=== PATIENT | male | born 1965 | race Hispanic/Latino ===

== ENCOUNTER 2020-01-08 21:23 | Inpatient (IN) | payer MEDICAID, SELFPAY ==
[~2020-01-08 21:23] MED LIST: NA CHLORIDE 0.9% 1,000 ML ONE; RSI MEDICATION KIT IV ONE; propofoL 1,000 MG/100 ML VIAL IV ONE
[2020-01-08] MEDS ORDERED: VECURONIUM 10 MG/VIAL IV ONE ×2 (21:24→22:38)
[2020-01-08 22:21] LABS: Absolute Lymphocytes (CBC) 2.9 K/uL (0.7-4.9); Basophils % 0.8 % (0-1.3); Hematocrit 47.2 % (39.6-49.0); Lymphocytes % 36.4 % (15.3-44.8); MPV 9.7 fL (7.6-11.3); RBC Red Blood Cell Count 5.57 M/uL (4.33-5.43)
[2020-01-08 22:37] LABS: BUN Blood Urea Nitrogen 13 mg/dL (7-18); Bicarbonate 21 mmol/L (21-32); Glucose Level 113 mg/dL (74-106); Sodium Level 140 mmol/L (136-145)
[2020-01-08] MEDS ORDERED: NA CHLORIDE 0.9% 1,000 ML ONE (22:46)
[2020-01-08 23:02] LABS: Barbiturates NEGATIVE (NEGATIVE); Benzodiazepines NEGATIVE (NEGATIVE); Cocaine NEGATIVE (NEGATIVE); METHAMPHETAM NEGATIVE (NEGATIVE); Methadone NEGATIVE (NEGATIVE); Opiates NEGATIVE (NEGATIVE); Phencyclidine NEGATIVE (NEGATIVE); THC Cannibis NEGATIVE (NEGATIVE)
[2020-01-08 23:05] LABS: Urine Blood 1+ (NEG); Urine Glucose NEGATIVE (NEG); Urine Protein NEGATIVE (NEG); Urine Specific Gravity 1.005 (1.005-1.030)
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
[2020-01-08] MEDS ORDERED: MIDAZOLAM HCL 2 MG/2 ML INJ ONE (23:39)
[2020-01-08] MEDS ORDERED: MORPHINE 4 MG/ML SYR ONE (23:39)
[2020-01-09] MEDS ORDERED: ONDANSETRON 4 MG/2 ML VIAL IV PRN (00:12)
[2020-01-09] MEDS ORDERED: ACETAMINOPHEN 500 MG TAB PO PRN (00:12)
[2020-01-09] MEDS ORDERED: LORazepam 2 MG/ML VIAL IV PRN ×2 (00:19→01:10)
[2020-01-09] MEDS ORDERED: MORPHINE 2 MG/ML SYR IV PRN (00:19)
[2020-01-09 00:41] LABS: Arterial Blood Carboxyhemoglob 1.2 % (0-1.5); Blood Gas Oxyhemoglobin 94.9 % (94-97); Blood O2 Saturation 96.8 % (92-98.5)
[2020-01-09 00:50] LABS: Arterial Blood Carboxyhemoglob 1.2 % (0-1.5); Blood Gas Oxyhemoglobin 93.7 % (94-97); Blood O2 Saturation 95.6 % (92-98.5)
[2020-01-09] MEDS ORDERED: VECURONIUM 10 MG/VIAL IV ONE (00:52)
[2020-01-09] MEDS: NA CHLORIDE 0.9% 1,000 ML IV SCH ×3 (01:00→20:35)
[2020-01-09] MEDS ORDERED: NA CHLORIDE 0.9% 250 ML IV PRN (01:10)
[2020-01-09] MEDS ORDERED: MIDAZOLAM HCL 2 MG/2 ML INJ IV PRN (01:10)
[2020-01-09] MEDS ORDERED: HALOPERIDOL LACT 5 MG/ML INJ IV PRN (01:10)
[2020-01-09] MEDS ORDERED: ROCURONIUM 50 MG/5 ML VIAL IV ONE (01:14)
[2020-01-09] MEDS: METOPROLOL TARTRATE 5 MG/5 ML INJ IV SCH ×6 (01:51→21:00)
[2020-01-09 01:52] LABS: Protime INR 1.12
[2020-01-09 02:34] LABS: Bilirubin Direct 0.3 mg/dL (0-0.2); Bilirubin Total 0.9 mg/dL (0.2-1.0); Folic Acid, (Folate) 14.7 ng/mL (3.1-17.5); Protein, Total 7.5 g/dL (6.4-8.2)
[2020-01-09] MEDS: ALBUTEROL 2.5 MG/3 ML NEB SOL NEB SCH ×4 (03:30→19:50)
[2020-01-09] MEDS: IPRATROPIUM BROM 0.5MG/2.5ML NEB SCH ×4 (03:30→19:50)
[2020-01-09] MEDS: propofoL 1,000 MG/100 ML VIAL IV PRN ×3 (05:41→22:47)
[2020-01-09] MEDS: FENTANYL CITR 100 MCG/2 ML IV PRN ×3 (05:41→19:10)
[2020-01-09 06:21] LABS: Absolute Lymphocytes (CBC) 1.4 K/uL (0.7-4.9); Basophils % 0.5 % (0-1.3); Hematocrit 41.6 % (39.6-49.0); Lymphocytes % 23.1 % (15.3-44.8); MPV 8.7 fL (7.6-11.3); RBC Red Blood Cell Count 4.92 M/uL (4.33-5.43)
[2020-01-09 06:41] LABS: ALT/SGPT 269 U/L (12-78); AST/SGOT 290 U/L (15-37); Albumin 2.7 g/dL (3.4-5.0); Alkaline Phosphatase 110 U/L (45-117); BUN Blood Urea Nitrogen 13 mg/dL (7-18); Bicarbonate 22 mmol/L (21-32); Bilirubin Direct 0.4 mg/dL (0-0.2); Bilirubin Total 0.6 mg/dL (0.2-1.0); Glucose Level 112 mg/dL (74-106); Phosphorus 3.1 mg/dL (2.5-4.9); Potassium 3.8 mmol/L (3.5-5.1); Protein, Total 6.4 g/dL (6.4-8.2); Sodium Level 142 mmol/L (136-145)
[2020-01-09] MEDS: ASPIRIN EC 81 MG TAB PO SCH (07:17)
[2020-01-09] MEDS ORDERED: CALCIUM GLUC 10% INJ 4.65 MEQ in NA CHLORIDE 0.9% 100 ML IV ONE (08:00)
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
--- NOTE | 2020-01-09 08:48 | RAD REPORT ---
EXAM DESCRIPTION: RAD - Chest Single View - 01/08/2020 10:24 pm CLINICAL HISTORY: ETT placement COMPARISON: CHEST SINGLE VIEW dated 11/10/2010; Chest Single View dated 01/08/2020 TECHNIQUE: AP portable chest image was obtained 01/08/2020 10:24 pm . FINDINGS: Endotracheal tube is in place. Tip is mid aortic arch level 2 cm above the ruthann. NG tube is well positioned in the proximal stomach. Low lung volumes noted. Left upper lobe interstitial and alveolar edema or infiltrate present. There is atelectasis or infiltrate at the left base. Right middle lobe atelectasis and/or infiltrate presen t. Heart and vasculature are normal. No pneumothorax. Small pleural effusions suspected. No acute bon y abnormality seen. No acute aortic findings suspected. IMPRESSION: Endotracheal tube and NG tube in good position. Left upper lobe edema or infiltrate with bilateral lung base infiltrate and/ or atelectasis. No cardiomegaly.
--- NOTE | 2020-01-09 08:51 | RAD REPORT ---
EXAM DESCRIPTION: RAD - Chest Single View - 01/08/2020 11:08 pm CLINICAL HISTORY: POST ETT COMPARISON: Chest Single View dated 01/08/2020; CHEST SINGLE VIEW dated 11/10/2010 TECHNIQUE: AP portable chest image was obtained 01/08/2020 11:08 pm . FINDINGS: ET tube and NG tube remain in good position. There is been improved aeration of the left upper lung field. Bilateral lung base opacification remai ns. Heart size is normal. No enlarging or new pleural effusion. IMPRESSION: ET tube and NG tube in good position. Improved aeration of the left upper lobe.
[2020-01-09] MEDS ORDERED: ENOXAPARIN 40 MG/0.4 ML SQ SCH (09:00)
--- NOTE | 2020-01-09 09:16 | P.CNS ---
Date of Consult: 01/09/20 Reason for Consult: Patient on ventilator Chief Complaint: Alcohol intoxication/combative behavior History of Present Illness: Patient is 54 years of age admitted to the hospital with and alcohol intoxication was found to have altered mental status history of fall inappropriate behavior was admitted here intubated currently on a propofol drip currently there is no history of medical problems cut abnormal liver function tests/is not see any doctors take any medications no other medical history/ patient currently on a ventilator propofol drip due to agitation Allergies No Known Allergies Allergy (Verified 01/09/20 02:19) Home Medications: NK [No Home Meds] 01/09/20 - Family History Father Family History: Reviewed- Non-Contributory Review of Systems is unable to be obtained Physical Examination Temp Pulse Resp BP Pulse Ox 97.7 F 87 18 118/76 100 01/09/20 08:02 01/09/20 09:00 01/09/20 09:00 01/09/20 09:00 01/09/20 09:00 General: Unresponsive Neck: Supple Respiratory: Clear to auscultation bilaterally Cardiovascular: No edema, Regular rate/rhythm Gastrointestinal: Normal bowel sounds, Soft and benign Laboratory Data (last 24 hrs) 01/09/20 00:19: WBC Cancelled, Hgb Cancelled, Hct Cancelled, Plt Count Cancelled 01/08/20 21:38: Sodium 140, Potassium 4.0, BUN 13, Creatinine 0.80, Glucose 113 H 01/08/20 21:38: WBC 8.1, Hgb 15.4, Hct 47.2, Plt Count 110 L 01/08/20 21:36: Creatinine Cancelled 01/08/20 21:36: WBC Cancelled, Hgb Cancelled, Hct Cancelled, Plt Count Cancelled 01/08/20 21:36: Sodium Cancelled, Potassium Cancelled, BUN Cancelled, Creatinine Cancelled, Glucose Cancelled 01/08/20 21:30: Creatinine 0.80 - Problems (1) Respiratory failure Current Visit: Yes Status: Acute Plan: Patient on a ventilator for respiratory failure hypoxic hypercapnic patient's chest x-rays abnormal some haziness on the left side may have aspirated CBC unremarkable pro calcitonin level is negative abnormal LFTs possibly from my alcoholic hepatitis CT scan showed complete atelectasis on the left side which is not apparent on the x-ray may have being due to the endotracheal tube titrate his O2 done sputum cultures ordered there is no evidence of urosepsis code had a pneumonia. Patient on Zosyn this is a mention of surgical sutures is no scars visible probably has aspirated Qualifiers: Chronicity: acute
[2020-01-09 09:20] LABS: Platelet Estimate DECR; Urine White Blood Cell Casts OK
[2020-01-09 09:21] LABS: Anisocytosis 1+; Blood Morphology Comment NOTED (NOT SEEN)
[2020-01-09] MEDS ORDERED: SUCCINYLCHOLINE 20 MG/ML (10 ML) IV ONE (11:10)
[2020-01-09] MEDS ORDERED: ETOMIDATE 20 MG/10 ML VIAL IV ONE (11:10)
[2020-01-09 11:16] LABS: Thyroid Stimulating Hormone 0.704 uIU/mL (0.360-3.740)
[2020-01-09] MEDS ORDERED: FOLIC ACID 1 MG, MULTIVITAMINS INJ 10 ML, THIAMINE HCL 100 MG in NA CHLORIDE 0.9% 1,000 ML IV ONE (13:00)
[2020-01-09 14:27] LABS: Urine Appearance TURBID; Urine Bilirubin NEGATIVE (NEG); Urine Blood 3+ (NEG); Urine Color DK YELLOW; Urine Glucose NEGATIVE (NEG); Urine Protein NEGATIVE (NEG); Urine Specific Gravity 1.025 (1.005-1.030); Urine pH 5.5 (5.0-7.0)
[2020-01-09 14:32] LABS: Urine Microscopic Reflex ORDER UMIC
[2020-01-09 14:43] LABS: Urine Amorphous Sediment 4+ /HPF (NONE SEEN); Urine Bacteria <20 /HPF (NONE SEEN); Urine Culture Reflex Order REFLEXED; Urine RBC 20-50 /HPF (NONE SEEN)
[2020-01-09] MEDS: LORazepam 2 MG/ML VIAL IV PRN ×2 (15:46→20:32)
[2020-01-09] MEDS: PIPER/TAZO/NS 3.375gm 3.375 GM/100 ML BAG IVPB SCH (16:02)
--- NOTE | 2020-01-09 17:01 | PN ---
The patient was seen and examined today. He was seen already and examined by Dr. Rodas earlier this m orning. He seems stable on the vent. Dr. Jara is adjusting the vent setting. We will start the patient on banana bag daily. Otherwise, agree with plan of care as outlined in Dr. Rodas's note. ELYSSA/SNEHA Voice ID: [id number] Report ID: [id number]
[2020-01-09] MEDS ORDERED: ATORVASTATIN 40 MG TAB PO SCH (21:00)
[2020-01-10] MEDS: METOPROLOL TARTRATE 5 MG/5 ML INJ IV SCH ×6 (01:00→21:12)
[2020-01-10] MEDS: PIPER/TAZO/NS 3.375gm 3.375 GM/100 ML BAG IVPB SCH (01:29)
[2020-01-10] MEDS: IPRATROPIUM BROM 0.5MG/2.5ML NEB SCH ×4 (01:30→20:00)
[2020-01-10] MEDS: ALBUTEROL 2.5 MG/3 ML NEB SOL NEB SCH ×4 (01:30→20:00)
[2020-01-10] MEDS: LORazepam 2 MG/ML VIAL IV PRN ×2 (02:29→07:44)
[2020-01-10 05:02] LABS: Absolute Lymphocytes (CBC) 0.8 K/uL (0.7-4.9); Basophils % 0.8 % (0-1.3); Hematocrit 38.3 % (39.6-49.0); Lymphocytes % 17.6 % (15.3-44.8); MPV 9.4 fL (7.6-11.3); RBC Red Blood Cell Count 4.48 M/uL (4.33-5.43)
[2020-01-10 05:22] LABS: ALT/SGPT 230 U/L (12-78); AST/SGOT 271 U/L (15-37); Albumin 2.6 g/dL (3.4-5.0); Alkaline Phosphatase 79 U/L (45-117); BUN Blood Urea Nitrogen 16 mg/dL (7-18); Bicarbonate 25 mmol/L (21-32); Bilirubin Total 1.3 mg/dL (0.2-1.0); Glucose Level 90 mg/dL (74-106); HDL Cholesterol 24 mg/dL (40-60); LDL Cholesterol, Calculated 35 (<130); NT PRO-BNP 25 pg/mL (<125); Phosphorus 1.9 mg/dL (2.5-4.9); Potassium 3.6 mmol/L (3.5-5.1); Protein, Total 6.3 g/dL (6.4-8.2); Sodium Level 141 mmol/L (136-145)
[2020-01-10] MEDS ORDERED: POTASSIUM PHOS IN 0.9 % NACL 15 MMOL/250 ML BAG IV ONE (05:40)
[2020-01-10] MEDS: FENTANYL CITR 100 MCG/2 ML IV PRN (05:56)
[2020-01-10] MEDS: NA CHLORIDE 0.9% 1,000 ML IV SCH ×3 (07:00→21:12)
--- NOTE | 2020-01-10 08:19 | P.PN ---
Subjective Date of Service: 01/10/20 Chief Complaint: Alcohol intoxication/combative behavior Subjective: Improving (Patient is doing well is alert responsive cooperative wants to be extubated hemodynamically stable) Review of Systems is unable to be obtained Physical Examination - Vital Signs Temperature: 99.0 F Blood Pressure: 123/75 Pulse: 88 Respirations: 19 Pulse Ox (%): 99 - Physical Exam General: Alert Respiratory: Clear to auscultation bilaterally Cardiovascular: No edema, Regular rate/rhythm Assessment & Plan - Problems (Diagnosis) (1) Respiratory failure Current Visit: Yes Status: Acute Plan: Patient is doing well is alert responsive and cooperative plan to wean and extubate repeat chest x-ray nose evidence of sepsis he is now thrombocytopenic liver function tests improving cultures negative hepatitis workup is pending Dc Lovenox Dc Zosyn Qualifiers: Chronicity: acute
[2020-01-10] MEDS: ASPIRIN EC 81 MG TAB PO SCH (09:00)
--- NOTE | 2020-01-10 09:18 | RAD REPORT ---
EXAM DESCRIPTION: [place] Single View01/10/2020 9:04 am CLINICAL HISTORY: Respiratory failure COMPARISON: January 08, 2020 FINDINGS: Endotracheal and nasogastric tubes in good position Left pulmonary opacities have mostly resolved. Improvement in a right basilar lung opacity Heart is normal size
[2020-01-10] MEDS ORDERED: VITAL AF 1,000 ML BOT RTH SCH (10:00)
[2020-01-10] MEDS: FOLIC ACID 1 MG, MULTIVITAMINS INJ 10 ML, THIAMINE HCL 100 MG in NA CHLORIDE 0.9% 1,000 ML IV SCH (10:03)
--- NOTE | 2020-01-10 10:17 | P.PN ---
Subjective Date of Service: 01/10/20 Chief Complaint: Alcohol intoxication/combative behavior Subjective: Improving Review of Systems is unable to be obtained Physical Examination - Vital Signs Temperature: 99.0 F Blood Pressure: 123/75 Pulse: 88 Respirations: 19 Pulse Ox (%): 99 - Physical Exam General: Other (Drowsy but arousable ) HEENT: Atraumatic, Normocephalic Neck: Supple Respiratory: Diminished, Crackles/rales Cardiovascular: No edema, Regular rate/rhythm Capillary refill: <2 Seconds Gastrointestinal: Soft and benign Musculoskeletal: No clubbing Integumentary: No rashes Neurological: Other (Drowsy but arousable, moving all limbs) Lymphatics: No axilla or inguinal lymphadenopathy Urinary: Other (No bladder distention) External genitalia: Deferred Rectal: Deferred Assessment & Plan - Problems (Diagnosis) (1) Alcohol intoxication Current Visit: Yes Status: Acute (2) Combative behavior Current Visit: Yes Status: Acute (3) Compromised airway Current Visit: Yes Status: Acute (4) On mechanically assisted ventilation Current Visit: Yes Status: Acute (5) Respiratory failure Current Visit: Yes Status: Acute Plan: Acute hypoxic hypercapnic respiratory failure Status post intubation Was on mechanical ventilator support ICU Extubated on 01/10/2020 Appreciate help from pulmonology monitor closely Acute alcohol intoxication Patient is still drowsy Will educate the patient regarding alcohol intoxication Will offer measures for cessation including AA Delirium tremens Will monitor closely for DT Ativan p.r.n. Cirrhosis liver Thrombocytopenia Elevated liver function panel Will get an ultrasound of the liver Hypocalcemia Hypophosphatemia Will monitor electrolytes and replace accordingly Elevated blood pressure Will give p.r.n. hydralazine Monitor under telemetry Qualifiers: Chronicity: acute Discharge Plan: Home Plan to discharge in: Greater than 2 days Time Spent Managing Pts Care (In Minutes): 43
--- NOTE | 2020-01-10 11:39 | RAD REPORT ---
EXAM DESCRIPTION: CT - Head C Spine Cap Chelsy Zuleta - 01/08/2020 10:55 pm CLINICAL HISTORY: Trauma. COMPARISON: None. TECHNIQUE: 1. CT scan of the brain and cervical spine without IV contrast. 2. CT scan of the chest, abdomen, and pelvis with IV contrast. This exam was performed according to our departmental dose-optimization program, which includes autom ated exposure control, adjustment of the mA and/or kV according to patient size and/or use of iterati ve reconstruction technique. FINDINGS: BRAIN: There is an area of encephalomalacia in the right parietal lobe. No evidence of acute infarction, int racranial hemorrhage, extra-axial fluid collection, or midline shift. No air-fluid levels are seen in the paranasal sinuses to suggest acute sinusitis. No depressed skull fracture. CERVICAL SPINE: No acute cervical fracture or prevertebral soft tissue swelling. There is straightening of the normal cervical lordosis, which may be due to cervical collar, muscle spasm, or patient positioning. There is degenerative disc disease at C4-C5 and C5-C6. The facet joints are intact. No high-grade spinal ca nal stenosis. CHEST: The heart size is normal without pericardial effusion. No thoracic aortic aneurysm or dissection. No mediastinal hematoma is seen. There are surgical sutures in the left lung with complete collapse. No pneumothorax or pleural effusion is seen. The endotracheal tube terminates at the level of the ruthann . ABDOMEN/PELVIS: The liver has a cirrhotic contour. Gallstones are present. The spleen is enlarged measuring 17.5 cm. The enteric tube terminates in the stomach. The abdominal and pelvic solid and hollow viscus organs are grossly unremarkable without evidence of acute findings. No intraperitoneal free fluid or free air is seen. No abdominal aortic aneurysm or di ssection. MUSCULOSKELETAL: No acute fracture of the thoracolumbar spine. The bony pelvis is intact. No rib fractures are seen. T he sternum is also intact. No body wall soft tissue contusion or hematoma. IMPRESSION: 1. No acute intracranial hemorrhage. 2. No acute fracture or subluxation of the cervical spine. 3. No evidence of solid or hollow viscus injury. 4. Complete collapse of the left lung with surgical sutures, which may be chronic postsurgical sequ will. Electronically signed by: Duane Alfaro MD 01/08/2020 10:37 PM [employer]ER Due to temporary technical issues with the PACS/Fluency reporting system, reports are being signed by the in house radiologist as a courtesy to ensure prompt reporting. The interpreting radiologist is f ully responsible for the content of the report.
[2020-01-10] MEDS ORDERED: HYDRALAZINE HCL 20 MG/ML VIAL IV PRN (12:47)
--- NOTE | 2020-01-10 14:48 | RAD REPORT ---
EXAM DESCRIPTION: US - Liver Only - 01/10/2020 2:39 pm CLINICAL HISTORY: Abdominal pain/cirrhosis COMPARISON: None FINDINGS: The liver has a nodular contour. The liver has an increased echotexture. Hepatopetal flow. A lesion is not visualized. Liver is mildly enlarged The spleen measures 18 centimeters IMPRESSION: Mild hepatomegaly Cirrhotic liver Moderate splenomegaly
[2020-01-10] MEDS: chlordiazePOXIDE HCl 25 MG CAP PO SCH ×2 (17:00→17:16)
[2020-01-10] MEDS: carvediloL 6.25 MG TAB PO SCH (21:12)
[2020-01-11] MEDS: METOPROLOL TARTRATE 5 MG/5 ML INJ IV SCH ×4 (01:00→12:43)
[2020-01-11] MEDS: chlordiazePOXIDE HCl 25 MG CAP PO SCH ×2 (01:51→08:31)
[2020-01-11] MEDS: ALBUTEROL 2.5 MG/3 ML NEB SOL NEB SCH ×3 (02:00→14:00)
[2020-01-11] MEDS: IPRATROPIUM BROM 0.5MG/2.5ML NEB SCH ×3 (02:00→14:00)
[2020-01-11 05:39] LABS: ALT/SGPT 182 U/L (12-78); AST/SGOT 210 U/L (15-37); Albumin 2.4 g/dL (3.4-5.0); Alkaline Phosphatase 88 U/L (45-117); BUN Blood Urea Nitrogen 12 mg/dL (7-18); Bicarbonate 21 mmol/L (21-32); Bilirubin Total 1.1 mg/dL (0.2-1.0); Glucose Level 83 mg/dL (74-106); Protein, Total 6.2 g/dL (6.4-8.2); Sodium Level 140 mmol/L (136-145)
[2020-01-11 05:58] VITALS: BMI 28.9
[2020-01-11 06:16] LABS: Absolute Lymphocytes (CBC) 0.6 K/uL (0.7-4.9); Basophils % 0.6 % (0-1.3); Hematocrit 37.2 % (39.6-49.0); Lymphocytes % 21.9 % (15.3-44.8); MPV 9.8 fL (7.6-11.3); RBC Red Blood Cell Count 4.41 M/uL (4.33-5.43)
--- NOTE | 2020-01-11 07:00 | RAD REPORT ---
EXAM DESCRIPTION: RAD - Chest Single View - 01/11/2020 6:47 am CLINICAL HISTORY: Respiratory failure Chest pain. COMPARISON: Chest Single View dated 01/10/2020; Chest Single View dated 01/08/2020; Chest Single View dated 01/08/2020; CHEST SINGLE VIEW dated 11/10/2010; Liver Only dated 01/10/2020 FINDINGS: Portable technique limits examination quality. Since prior study, the patient has been extubated. Enteric tube has been removed. Lung aeration is st able with mild interstitial opacities persist. The heart is normal in size. No displaced fractures.
[2020-01-11] MEDS: NA CHLORIDE 0.9% 1,000 ML IV SCH ×2 (07:46→12:43)
[2020-01-11 08:26] LABS: Anisocytosis 1+; Blood Morphology Comment NOTED (NOT SEEN); Platelet Estimate DECR; Urine White Blood Cell Casts OK
[2020-01-11] MEDS: ASPIRIN EC 81 MG TAB PO SCH (08:30)
[2020-01-11] MEDS: carvediloL 6.25 MG TAB PO SCH (08:31)
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
[2020-01-11] MEDS: FOLIC ACID 1 MG, MULTIVITAMINS INJ 10 ML, THIAMINE HCL 100 MG in NA CHLORIDE 0.9% 1,000 ML IV SCH (10:02)
[2020-01-11 12:02] VITALS: O2SAT 74
[2020-01-11 17:05] VITALS: BP 144/81
[2020-01-11 17:06] VITALS: TEMP 98
[2020-01-12 05:20] LABS: HBsAG Nonreactive (Nonreactive)
[2020-01-12 17:10] LABS: Hep C Virus RNA (PCR)log 5.64 log IU/mL
== END 2020-01-11 16:45 | disposition home or self-care (01) | DRG 896 ==
LOC: ER 21:23 → 3RD-ICU 01-09 00:55
PROVIDERS: ADMIT Hospitalist; ATTEND Internal Medicine
PROC: 0BH17EZ Insertion of Endotracheal Airway into Trachea, Via Natural or Artificial Opening (ICD-10-PCS; principal; 2020-01-09)
PROC: 5A1945Z Respiratory Ventilation, 24-96 Consecutive Hours (ICD-10-PCS; 2020-01-09)
DX: F10.129 Alcohol abuse with intoxication, unspecified (principal); J69.0 Pneumonitis due to inhalation of food and vomit; J96.01 Acute respiratory failure with hypoxia; J96.02 Acute respiratory failure with hypercapnia; E87.2 Acidosis; R45.6 Violent behavior; Y90.8 Blood alcohol level of 240 mg/100 ml or more; F91.8 Other conduct disorders; K70.30 Alcoholic cirrhosis of liver without ascites; D69.6 Thrombocytopenia, unspecified; E83.51 Hypocalcemia; E83.39 Other disorders of phosphorus metabolism
CPT/HCPCS: 31500; 36415; 51702; 70450; 71045; 71250; 72125; 76705; 80048; 80053; 80061; 80074; 80076; 80307; 80320; 81003; 81015; 82140; 82607; 82746; 82805; 83540; 83605; 83690; 83735; 83880; 84100; 84145; 84443; 85025; 85610; 85730; 86850; 86900; 86901; 87040; 87070; 87086; 87088; 87205; 87522; 94002; 94003; 94640; 97112; 97116; 97161; 99291; 99292; J0330; J0610; J1650; J2250; J2543; J2704; J3010; J3411; J7030; Q9967

== ENCOUNTER 2020-01-22 00:27 | Emergency (ER) | payer SELFPAY ==
[2020-01-22 01:12] LABS: Absolute Lymphocytes (CBC) 1.6 K/uL (0.7-4.9); Basophils % 1.1 % (0-1.3); Hematocrit 45.8 % (39.6-49.0); Lymphocytes % 23.1 % (15.3-44.8); MPV 9.6 fL (7.6-11.3); RBC Red Blood Cell Count 5.41 M/uL (4.33-5.43)
[2020-01-22 01:13] LABS: Protime INR 1.11
[2020-01-22 01:45] LABS: Blood Morphology Comment NOT SEEN (NOT SEEN); Platelet Estimate DECR; Urine White Blood Cell Casts OK
[2020-01-22 01:47] LABS: AST/SGOT 291 U/L (15-37); Albumin 3.3 g/dL (3.4-5.0); Alkaline Phosphatase 127 U/L (45-117); BUN Blood Urea Nitrogen 9 mg/dL (7-18); Bicarbonate 24 mmol/L (21-32); Bilirubin Direct 0.4 mg/dL (0-0.2); Bilirubin Total 0.7 mg/dL (0.2-1.0); Glucose Level 110 mg/dL (74-106); Potassium 3.8 mmol/L (3.5-5.1); Protein, Total 8.4 g/dL (6.4-8.2); Sodium Level 142 mmol/L (136-145)
[2020-01-22 01:50] LABS: ALT/SGPT 321 U/L (12-78)
--- NOTE | 2020-01-22 03:09 | ER ---
Nurse's Notes [facility] Name: Aureliano Sheikh Jr Age: 54 yrs Sex: Male : 1965 Arrival Date: 01/22/2020 Time: 00:31 Bed 18 Private MD: Diagnosis: Alcohol abuse with intoxication Presentation: 01:00 Chief complaint: EMS states: PATIENT IS KNOWN ETOH USER. DRINK ALCOHOL TODAY AND rv STARTED HAVING SOME SHAKING AND BLOOD PRESSURE IS ELEVATED. FAMILY CALLED EMS. DENIES ANY OTHER SYMPTOMS. Risk Assessment: Do you want to hurt yourself or someone else? Patient reports no desire to harm self or others. 01:00 Method Of Arrival: EMS: [facility] rv 01:00 Coronavirus screen: The patient has NOT traveled to [place] in the past 14 days. Proceed rv with normal triage procedures. The patient has NOT had contact with known and/or suspected case of Coronavirus. Proceed with normal triage procedures. Ebola Screen: No symptoms or risks identified at this time. Initial Sepsis Screen: Does the patient meet any 2 criteria? No. Patient's initial sepsis screen is negative. Does the patient have a suspected source of infection? No. Patient's initial sepsis screen is negative. 01:00 Acuity: LORETTA 3 rv 01:00 Onset of symptoms was January 22, 2020 at 00:00. rv 01:00 Note patient drank beer approximately 1 case. started drinking 6 in the morning as rr5 stated by the patient. as per EMS patient becoming combative on the way here. Historical: - Allergies: 02:06 No Known Allergies; rv - Home Meds: 02:06 Unable to obtain [Active]; rv - PMHx: 02:06 Unable to obtain; rv - PSHx: 02:06 Unable to obtain; rv - Immunization history:: Adult Immunizations unknown. - Social history:: Smoking status: Patient reports the use of cigarette tobacco products, smokes one pack cigarettes per day. Patient uses alcohol, on a daily basis. Screenin:03 Abuse screen: Denies threats or abuse. Denies injuries from another. Nutritional rv screening: No deficits noted. Tuberculosis screening: No symptoms or risk factors identified. Fall Risk None identified. Assessment: 01:00 General: Appears in no apparent distress. Behavior is uncooperative, Smells of alcohol. rv 01:00 Pain: Denies pain. Neuro: Level of Consciousness is awake, alert, Oriented to person, rv place, time, situation. Cardiovascular: Patient's skin is warm and dry. Respiratory: Airway is patent Breath sounds are clear bilaterally. Musculoskeletal: left hand is shaking intermittently. 02:10 Reassessment: Patient appears in no apparent distress at this time. Patient and/or rv family updated on plan of care and expected duration. Pain level reassessed. Patient is alert, oriented x 3, equal unlabored respirations, skin warm/dry/pink. PATIENT IS ASLEEP. NO SIGNS OF SHAKINESS. STABLE VITAL SIGNS. Respiratory: Airway is patent Breath sounds are clear bilaterally. 03:17 Reassessment: Patient appears in no apparent distress at this time. Patient and/or rv family updated on plan of care and expected duration. Pain level reassessed. Patient is alert, oriented x 3, equal unlabored respirations, skin warm/dry/pink. patient is more coherent now and cooperative. family was able to reach thru phone call for transportation. Patient denies pain at this time. Patient states feeling better. Patient states symptoms have improved. 03:53 Reassessment: patient decided to wait for his family in the waiting area. discharged rv alert and ambulatory. Vital Signs: 01:00 BP 121 / 77; Pulse 82; Resp 17; Temp 98; Pulse Ox 97% on R/A; Weight 68.04 kg; Pain rv 0/10; 01:00 BP 98 / 61; Pulse 82; Resp 16; Pulse Ox 96% on R/A; rv 02:09 BP 100 / 69; Pulse 66; Resp 17; Pulse Ox 96% on R/A; rv 03:00 BP 110 / 66; Pulse 68; Resp 16; Temp 98; Pulse Ox 99% on R/A; rv ED Course: 00:31 Patient arrived in ED. rr5 00:40 Adrien Quezada MD is Attending Physician. tw4 01:00 Patient has correct armband on for positive identification. equipment monitor phototypesetting on. Pulse rv ox on. NIBP on. 01:00 Inserted saline lock: 18 gauge in right forearm, using aseptic technique. Blood rv collected. 01:00 Initial lab(s) drawn, by me, sent to lab. rv 01:50 Notified ED physician of a critical lab result(s). ALT Dr Quezada notified. bb 02:01 Iggy Perez, RN is Primary Nurse. rv 02:05 Triage completed. rv 02:12 Patient placed Patient notified of wait time. rv 03:20 No provider procedures requiring assistance completed. IV discontinued, intact, rv bleeding controlled, No redness/swelling at site. Pressure dressing applied. Administered Medications: No medications were administered Outcome: 03:08 Discharge ordered by . tw4 03:20 Condition: good rv 03:20 Discharge instructions given to patient, Instructed on discharge instructions, follow up and referral plans. Demonstrated understanding of instructions, follow-up care. 03:54 Discharged to home ambulatory. rv 03:54 Patient left the ED. rv Signatures: Claudia Tapia RN RN bb Adrien Quezada MD MD tw4 Iggy Perez, ETIENNE RN rv Aman Dasilva RN RN rr5 Corrections: (The following items were deleted from the chart) 03:54 03:53 Reassessment: patient decided to wait for his family in the waiting area. rv rv
--- NOTE | 2020-01-22 03:09 | EDPHYS ---
Physician Documentation [facility] Name: Aureliano Sheikh Jr Age: 54 yrs Sex: Male : 1965 Arrival Date: 01/22/2020 Time: 00:31 Bed 18 Private MD: ED Physician Adrien Quezada HPI: 06:05 This 54 yrs old Male presents to ER via EMS with complaints of High Blood tw4 Pressure. 06:05 The patient has elevated blood pressure and discovered this at home. Onset: The tw4 symptoms/episode began/occurred today. Modifying factors: The symptoms are aggravated by. Associated signs and symptoms: The patient has no apparent associated signs or symptoms. The patient has not experienced similar symptoms in the past. Historical: - Allergies: 02:06 No Known Allergies; rv - Home Meds: 02:06 Unable to obtain [Active]; rv - PMHx: 02:06 Unable to obtain; rv - PSHx: 02:06 Unable to obtain; rv - Immunization history:: Adult Immunizations unknown. - Social history:: Smoking status: Patient reports the use of cigarette tobacco products, smokes one pack cigarettes per day. Patient uses alcohol, on a daily basis. ROS: 06:05 Constitutional: Negative for fever, chills, and weight loss, Eyes: Negative for injury, tw4 pain, redness, and discharge, Cardiovascular: Negative for chest pain, palpitations, and edema, Respiratory: Negative for shortness of breath, cough, wheezing, and pleuritic chest pain, Abdomen/GI: Negative for abdominal pain, nausea, vomiting, diarrhea, and constipation, Back: Negative for injury and pain, MS/Extremity: Negative for injury and deformity, Skin: Negative for injury, rash, and discoloration, Neuro: Negative for headache, weakness, numbness, tingling, and seizure. Exam: 06:05 Constitutional: This is a well developed, well nourished patient who is awake, alert, tw4 and in no acute distress. Head/Face: Normocephalic, atraumatic. Chest/axilla: Normal chest wall appearance and motion. Nontender with no deformity. No lesions are appreciated. Cardiovascular: Regular rate and rhythm with a normal S1 and S2. No gallops, murmurs, or rubs. Normal PMI, no JVD. No pulse deficits. Respiratory: Lungs have equal breath sounds bilaterally, clear to auscultation and percussion. No rales, rhonchi or wheezes noted. No increased work of breathing, no retractions or nasal flaring. Abdomen/GI: Soft, non-tender, with normal bowel sounds. No distension or tympany. No guarding or rebound. No evidence of tenderness throughout. Back: No spinal tenderness. No costovertebral tenderness. Full range of motion. MS/ Extremity: Pulses equal, no cyanosis. Neurovascular intact. Full, normal range of motion. Neuro: Awake and alert, GCS 15, oriented to person, place, time, and situation. Cranial nerves II-XII grossly intact. Motor strength 5/5 in all extremities. Sensory grossly intact. Cerebellar exam normal. Normal gait. Vital Signs: 01:00 BP 121 / 77; Pulse 82; Resp 17; Temp 98; Pulse Ox 97% on R/A; Weight 68.04 kg; Pain rv 0/10; 01:00 BP 98 / 61; Pulse 82; Resp 16; Pulse Ox 96% on R/A; rv 02:09 BP 100 / 69; Pulse 66; Resp 17; Pulse Ox 96% on R/A; rv 03:00 BP 110 / 66; Pulse 68; Resp 16; Temp 98; Pulse Ox 99% on R/A; rv MDM: 00:40 Patient medically screened. tw4 06:05 Differential diagnosis: hypertensive crisis, Malignant HTN. Data reviewed: vital signs, tw4 nurses notes. Data interpreted: Pulse oximetry: Interpretation: normal. Counseling: I had a detailed discussion with the patient and/or guardian regarding: the historical points, exam findings, and any diagnostic results supporting the discharge/admit diagnosis. Counseling: I had a detailed discussion with the patient and/or guardian regarding: the presence of at least one elevated blood pressure reading (>120/80) during this emergency department visit. Special discussion: I discussed with the patient/guardian in detail that at this point there is no indication for admission to the hospital. It is understood, however, that if the symptoms persist or worsen the patient needs to return immediately for re-evaluation. 00:41 Order name: Basic Metabolic Panel tw4 00:41 Order name: CBC with Diff tw4 00:41 Order name: ETOH Level; Complete Time: 01:40 tw4 00:41 Order name: Hepatic Function tw4 00:41 Order name: PT-INR tw4 00:41 Order name: Ptt, Activated tw4 00:41 Order name: Salicylate tw4 00:41 Order name: IV Saline Lock; Complete Time: 00:56 tw4 00:41 Order name: Labs collected and sent; Complete Time: 00:56 tw4 00:41 Order name: Basic Metabolic Panel EDMS 01:45 Order name: CBC Smear Scan EDMS Administered Medications: No medications were administered Disposition: 01/22/20 03:08 Discharged to Home. Impression: Alcohol abuse with intoxication. - Condition is Stable. - Discharge Instructions: Alcohol Intoxication, Alcohol Abuse and Nutrition. - Medication Reconciliation Form, Thank You Letter, Antibiotic Education, Prescription Opioid Use form. - Follow up: Private Physician; When: Upon discharge from the Emergency Department; Reason: If symptoms return, Recheck today's complaints, Continuance of care. - Problem is new. - Symptoms have improved. Signatures: Dispatcher [employer] EDMS Adrien Quezada MD MD tw4 Iggy Perez RN RN rv Corrections: (The following items were deleted from the chart) 03:54 03:08 01/22/2020 03:08 Discharged to Home. Impression: Alcohol abuse with intoxication. rv Condition is Stable. Forms are Medication Reconciliation Form, Thank You Letter, Antibiotic Education, Prescription Opioid Use. Follow up: Private Physician; When: Upon discharge from the Emergency Department; Reason: If symptoms return, Recheck today's complaints, Continuance of care. Problem is new. Symptoms have improved. tw4
[2020-01-22 04:06] VITALS: TEMP 98
[2020-01-22 04:08] VITALS: BP 110/66; O2SAT 99
== END 2020-01-22 03:54 | disposition home or self-care (01) ==
LOC: ER 00:27
DX: F10.129 Alcohol abuse with intoxication, unspecified (principal); F17.210 Nicotine dependence, cigarettes, uncomplicated
CPT/HCPCS: 36415; 80048; 80076; 80320; 80329; 85025; 85610; 85730; 99284

== ENCOUNTER 2020-07-04 17:03 | Emergency (ER) | payer SELFPAY ==
[2020-07-04 18:03] LABS: Protime INR 1.36
[2020-07-04 18:05] LABS: Absolute Lymphocytes (CBC) 1.1 K/uL (0.7-4.9); Basophils % 0.5 % (0-1.3); Hematocrit 40.6 % (39.6-49.0); Lymphocytes % 13.5 % (15.3-44.8); MPV 9.9 fL (7.6-11.3); RBC Red Blood Cell Count 4.65 M/uL (4.33-5.43)
--- NOTE | 2020-07-04 18:07 | RAD REPORT ---
EXAM DESCRIPTION: CT - Head Brain Wo Cont - 07/04/2020 5:50 pm CLINICAL HISTORY: MENTAL STATUS CHANGE Headache, drowsiness COMPARISON: Head C Spine Cap Wo Con dated 01/08/2020 TECHNIQUE: All CT scans are performed using dose optimization technique as appropriate and may inclu de automated exposure control or mA/KV adjustment according to patient size. FINDINGS: Large, acute bifrontal intracranial hematomas are present, on the right measuring 4.7 x 1. 9 cm and on the left measuring 4.5 x 2.6 cm. There is a small amount of subdural blood is well along the left frontal convexity. The mild subarachnoid blood is seen along the left temporal region as wel l as the right posterior frontal region.No hydrocephalus. 5 mm [id number] midline shift. The paranasal sinuses and mastoids are clear. Several kaylin holes are present bilaterally. IMPRESSION: Bilateral large acute bifrontal intracranial hematomas as detailed. Additional areas of subdural and subarachnoid blood bilaterally as described above. Findings were discussed with Dr. Webb in emergency room 6 p.m. 07/04/2020 by telephone.
--- NOTE | 2020-07-04 18:11 | EDPHYS ---
Physician Documentation [facility] Name: Aureliano Sheikh Jr Age: 55 yrs Sex: Male : 1965 Arrival Date: 07/04/2020 Time: 17:[address] Private MD: ED Physician Scott Webb HPI: 07/04 17:20 This 55 yrs old Male presents to ER via EMS with complaints of Altered Mental cp Status. 17:20 The patient presents with confusion. cp 17:20 Onset: The symptoms/episode began/occurred 2 day(s) ago. Possible causes: unknown. cp Associated signs and symptoms: Pertinent positives: slurred speech, Pertinent negatives: abdominal pain, chest pain, combativeness, headache, seizure. Current symptoms: In the emergency department the patient's symptoms are unchanged from the initial presentation, despite EMS interventions. Patient's baseline: Neuro: alert and fully oriented, Motor: no deficits, Ambulation: walks without assistance, Speech: normal. EMS reports family found patient on ground 2 days ago. Historical: - Allergies: 17:17 No Known Allergies; jd3 - Home Meds: 17:17 None [Active]; jd3 - PMHx: 17:17 None; jd3 - PSHx: 17:17 brain sx at a young age; jd3 - Immunization history:: Adult Immunizations unknown. - Social history:: Smoking status: Patient reports the use of cigarette tobacco products, denies chronic smoking, but will smoke occasionally. ROS: 17:21 Constitutional: Negative for fever. cp 17:21 Cardiovascular: Negative for chest pain. cp 17:21 Respiratory: Negative for cough, shortness of breath. 17:21 Abdomen/GI: Negative for abdominal pain, vomiting, diarrhea, constipation. 17:21 Back: Negative for pain at rest, pain with movement. 17:21 MS/extremity: Negative for injury or acute deformity. 17:21 Neuro: Positive for altered mental status, Negative for headache. 17:21 All other systems are negative. Exam: 17:25 Constitutional: The patient appears in no acute distress, alert, awake, comfortable, cp non-diaphoretic, non-toxic, well developed, well nourished. 17:25 Head/Face: Normocephalic, atraumatic. cp 17:25 Eyes: Periorbital structures: appear normal, Pupils: equal, round, and reactive to light and accomodation, Extraocular movements: intact throughout, Conjunctiva: normal, no exudate, no injection, Lids and lashes: appear normal, bilaterally. 17:25 ENT: External ear(s): are unremarkable, Nose: is normal, Mouth: Lips: moist, Oral mucosa: pink and intact, moist, Posterior pharynx: Airway: no evidence of obstruction, patent. 17:25 Neck: C-spine: vertebral tenderness, is not appreciated, crepitus, is not appreciated, ROM/movement: is normal, is supple, without pain, no range of motions limitations. 17:25 Chest/axilla: Inspection: normal, Palpation: is normal, no crepitus, no tenderness. 17:25 Cardiovascular: Rate: normal, Rhythm: regular. 17:25 Respiratory: the patient does not display signs of respiratory distress, Respirations: normal, no use of accessory muscles, no retractions, labored breathing, is not present, Breath sounds: are clear throughout, no decreased breath sounds. 17:25 Abdomen/GI: Inspection: abdomen appears normal, Palpation: abdomen is soft and non-tender, in all quadrants. 17:25 Back: vertebral tenderness, is not appreciated. 17:25 Skin: cellulitis, is not appreciated, no rash present. 17:25 Neuro: Orientation: to person, time, situation, Mentation: able to follow commands, slow to respond, Cerebellar function: Romberg testing is negative, normal finger to nose testing, Motor: moves all fours, strength is normal, Sensation: no obvious gross deficits. 17:42 ECG was reviewed by the Attending Physician. cp Vital Signs: 17:17 BP 136 / 83; Pulse 78; Resp 17 S; Temp 98.4(A); Pulse Ox 97% on R/A; Weight 77.11 kg jd3 (R); Height 5 ft. 4 in. (162.56 cm) (R); Pain 0/10; 18:16 BP 142 / 89; Pulse 70; Resp 18 S; Pulse Ox 99% on R/A; jd3 18:25 BP 142 / 89; Pulse 74; Resp 20 S; Pulse Ox 98% on R/A; jd3 17:17 Body Mass Index 29.18 (77.11 kg, 162.56 cm) jd3 NIH Stroke Scale Scores: 17:19 NIHSS Score: 1 jd3 17:22 NIHSS Score: 1 cp Carl Coma Score: 17:25 Eye Response: spontaneous(4). Verbal Response: oriented(5). Motor Response: obeys cp commands(6). Total: 15. MDM: 17:17 Patient medically screened. cp 17:35 Differential Diagnosis: CVA, alcohol intoxication, intracranial bleed, seizure, TIA. cp 18:05 Data reviewed: vital signs, nurses notes, radiologic studies, CT scan, I have discussed cp the patient's presentation/case with the attending Emergency Department Physician; and as a result, I will transfer patient. 18:05 Counseling: I had a detailed discussion with the patient and/or guardian regarding: the cp historical points, exam findings, and any diagnostic results supporting the discharge/admit diagnosis, radiology results, the need to transfer to another facility, for higher level of care. 07/04 17:15 Order name: Basic Metabolic Panel 07/04 17:15 Order name: CBC with Diff 07/04 17:15 Order name: LFT's 07/04 17:15 Order name: Magnesium cp 07/04 17:15 Order name: NT PRO-BNP 07/04 17:15 Order name: PT-INR 07/04 17:15 Order name: Troponin (emerg Dept Use Only) 07/04 17:15 Order name: AMMONIA 07/04 17:15 Order name: ETOH Level 07/04 17:15 Order name: CK 07/04 18:12 Order name: CBC with Automated Diff; Complete Time: 16:53 EDMS 07/05 16:53 Interpretation: Normal except: HGB 13.5; PLT 80; RDW 16.0; KRYSTEN% 77.7; LYM% 13.5. 07/04 18:13 Order name: Protime (+INR); Complete Time: 19:06 EDMS 07/05 16:54 Interpretation: Abnormal: PT 16.0. 07/04 17:15 Order name: XRAY Chest (1 view) 07/04 17:15 Order name: EKG; Complete Time: 17:33 cp 07/04 17:15 Order name: Cardiac monitoring; Complete Time: 17:21 cp 07/04 17:15 Order name: EKG - Nurse/Tech; Complete Time: 17:28 07/04 17:15 Order name: IV Saline Lock; Complete Time: 17:28 07/04 17:15 Order name: Labs collected and sent; Complete Time: 17:41 07/04 17:15 Order name: O2 Per Protocol; Complete Time: 17:21 07/04 17:15 Order name: O2 Sat Monitoring; Complete Time: 17:21 07/04 17:15 Order name: CT Head Brain wo Cont cp 07/04 18:00 Order name: CT C Spine cp 07/04 18:08 Order name: CT; Complete Time: 19:06 EDMS 07/04 18:13 Order name: CT; Complete Time: 19:06 EDMS 07/04 18:15 Order name: Ammonia; Complete Time: 19:06 EDMS 07/05 16:55 Interpretation: Reviewed. 07/04 18:26 Order name: Alcohol Serum/Plasma; Complete Time: 19:06 EDMS 12 16:55 Interpretation: Reviewed. cp EC:42 Rate is 77 beats/min. Rhythm is regular. ID interval is normal. QRS interval is normal. cp QT interval is normal. T waves are Inverted in lead aVR. Interpreted by me. Reviewed by me. Administered Medications: 18:15 Drug: Keppra 1500 mg Route: IV; Rate: calculated rate; Site: left antecubital; jd3 18:34 Follow up: Response: No adverse reaction; IV Status: Completed infusion; IV Intake: jd3 100ml Disposition: 18:15 Chart complete. cp 19:03 Co-signature as Attending Physician, Scott Webb MD I agree with the assessment and ps1 plan of care. Disposition: 07/04/20 18:10 Transfer ordered to [facility]. Diagnosis is Intracranial injury - hemorrhage. - Reason for transfer: Higher level of care. - Accepting physician is DR Infante. - Condition is Stable. - Problem is new. - Symptoms are unchanged. NIH Stroke Scale - NIH Stroke Score Date: 07/04/2020 Time: 17:19 Total Score = 1 1a. Level of Consciousness (LOC) - 0(Alert) 1b. Level of Consciousness (LOC) (Year \T\ Age) - 0(Both) 1c. LOC Commands (Open \T\ Closes Eyes/Plaster Foreman) - 0(Both) 2. Best Gaze (Lateral Gaze Paresis) - 0(Normal) 3. Visual Field Loss - 0(No visual loss) 4. Facial Palsy - 0(Normal) 5a. Left Arm: Motor (10-second hold) - 0(No drift) 5b. Right Arm: Motor (10-second hold) - 0(No drift) 6a. Left Leg: Motor (5-second hold - always test supine) - 0(No drift) 6b. Right Leg: Motor (5-second hold - always test supine) - 0(No drift) 7. Limb Ataxia (finger/nose \T\ heel/nuñez - test with eyes open) - 0(Absent) 8. Sensory Loss (pinprick arms/legs/face) - 0(Normal) 9. Best Language: Aphasia (description/naming/reading) - 0(No aphasia) 10. Dysarthria (speech clarity - read or repeat words) - 1(Mild to Moderate) 11. Extinction and Inattention (visual/tactile/auditory/spatial/personal) - 0(No abnormality) Initials: jd3 NIH Stroke Scale - NIH Stroke Score Date: 07/04/2020 Time: 17:22 Total Score = 1 1a. Level of Consciousness (LOC) - 0(Alert) 1b. Level of Consciousness (LOC) (Year \T\ Age) - 0(Both) 1c. LOC Commands (Open \T\ Closes Eyes/Plaster Foreman) - 0(Both) 2. Best Gaze (Lateral Gaze Paresis) - 0(Normal) 3. Visual Field Loss - 0(No visual loss) 4. Facial Palsy - 0(Normal) 5a. Left Arm: Motor (10-second hold) - 0(No drift) 5b. Right Arm: Motor (10-second hold) - 0(No drift) 6a. Left Leg: Motor (5-second hold - always test supine) - 0(No drift) 6b. Right Leg: Motor (5-second hold - always test supine) - 0(No drift) 7. Limb Ataxia (finger/nose \T\ heel/nuñez - test with eyes open) - 0(Absent) 8. Sensory Loss (pinprick arms/legs/face) - 0(Normal) 9. Best Language: Aphasia (description/naming/reading) - 0(No aphasia) 10. Dysarthria (speech clarity - read or repeat words) - 1(Mild to Moderate) 11. Extinction and Inattention (visual/tactile/auditory/spatial/personal) - 0(No abnormality) Initials: cp Signatures: Dispatcher [employer] EDMS Neftaly Quintana PA PA cp Davies, Jonathon, RN RN jd3 Scott Webb MD MD ps1 Corrections: (The following items were deleted from the chart) 18:28 18:10 07/04/2020 18:10 Transfer ordered to [facility]. Diagnosis cp is Intracranial injury - hemorrhage. Reason for transfer: Higher level of care. Accepting physician is Doctor. Condition is Stable. Problem is new. Symptoms are unchanged. cp 18:50 18:28 07/04/2020 18:10 Transfer ordered to [facility]. Diagnosis jd3 is Intracranial injury - hemorrhage. Reason for transfer: Higher level of care. Accepting physician is DR Infante. Condition is Stable. Problem is new. Symptoms are unchanged. cp
--- NOTE | 2020-07-04 18:11 | ER ---
Nurse's Notes [facility] Name: Aureliano Sheikh Jr Age: 55 yrs Sex: Male : 1965 Arrival Date: 07/04/2020 Time: 17:[address] Private MD: Diagnosis: Intracranial injury-hemorrhage Presentation: 07/04 17:13 Chief complaint: EMS states: "Family is reporting that the pt has been acting strange jd3 for the last couple of days. 2 days ago they found him laying in the yard, they were unsure if he fell or what. they did report a fall about 2 days ago, but no injury. he is A\\T\\O X 4, but he is acting different then what family says he normally is. he is acting like he has been drinking. pt denies alcohol.". Coronavirus screen: At this time, the client does not indicate any symptoms associated with coronavirus-19. Ebola Screen: Patient negative for fever greater than or equal to 101.5 degrees Fahrenheit, and additional compatible Ebola Virus Disease symptoms. Initial Sepsis Screen: Does the patient meet any 2 criteria? No. Patient's initial sepsis screen is negative. Does the patient have a suspected source of infection? No. Patient's initial sepsis screen is negative. Risk Assessment: Do you want to hurt yourself or someone else? Patient reports no desire to harm self or others. Onset of symptoms was July 02, 2020. 17:13 Method Of Arrival: EMS: [facility] 17:13 Acuity: LORETTA 2 jd3 17:18 Care prior to arrival: IV initiated. 18 GA, in the left antecubital area. jd3 Historical: - Allergies: 17:17 No Known Allergies; jd3 - Home Meds: 17:17 None [Active]; jd3 - PMHx: 17:17 None; jd3 - PSHx: 17:17 brain sx at a young age; jd3 - Immunization history:: Adult Immunizations unknown. - Social history:: Smoking status: Patient reports the use of cigarette tobacco products, denies chronic smoking, but will smoke occasionally. Screenin:20 Abuse screen: Denies threats or abuse. Nutritional screening: No deficits noted. jd3 Tuberculosis screening: No symptoms or risk factors identified. Fall Risk Ambulatory Aid- None/Bed Rest/Nurse Assist (0 pts). Gait- Normal/Bed Rest/Wheelchair (0 pts) Mental Status- Oriented to own ability (0 pts). Total Ch Fall Scale indicates No Risk (0-24 pts). Assessment: 17:19 General: Appears in no apparent distress. comfortable, Behavior is calm, cooperative, jd3 appropriate for age. Pain: Denies pain. Neuro: Level of Consciousness is awake, alert, obeys commands, Oriented to person, place, time, Automobile Painter are equal bilaterally Moves all extremities. Full function Speech is slurred, Facial symmetry appears normal, Intact. Cardiovascular: Denies chest pain, Capillary refill < 3 seconds Patient's skin is warm and dry. Rhythm is regular. Respiratory: Airway is patent Respiratory effort is even, unlabored, Respiratory pattern is regular, symmetrical, Denies cough, shortness of breath. GI: No signs and/or symptoms were reported involving the gastrointestinal system. Patient currently denies diarrhea, nausea, vomiting. : No signs and/or symptoms were reported regarding the genitourinary system. EENT: No signs and/or symptoms were reported regarding the EENT system. Derm: Skin is intact, Skin is dry, Skin is normal, Skin temperature is warm. Musculoskeletal: Circulation, motion, and sensation intact. Range of motion: intact in all extremities. 18:15 Reassessment: Report given to [facility]. ETA 22 minutes. ss 18:25 Reassessment: No changes from previously documented assessment. Patient and/or family jd3 updated on plan of care and expected duration. Pain level reassessed. report given to Yamilet Ramos RN at [facility] in [place]. Patient denies pain at this time. 18:48 Reassessment: No changes from previously documented assessment. Patient and/or family jd3 updated on plan of care and expected duration. Pain level reassessed. report given to February with [facility] Patient denies pain at this time. Neuro: Level of Consciousness is awake, alert, obeys commands, Oriented to person, place, time. Cardiovascular: Denies chest pain, Capillary refill < 3 seconds Patient's skin is warm and dry. Respiratory: Airway is patent Respiratory effort is even, unlabored, Respiratory pattern is regular, symmetrical. 19:18 Reassessment: critical labs called to ED by Gilmar CLIFTON of ALT 338, AST 1241, Trop 2.3, bb CPK> 1000. 19:27 Reassessment: critical labs relayed to [facility]. [facility] Vital Signs: 17:17 BP 136 / 83; Pulse 78; Resp 17 S; Temp 98.4(A); Pulse Ox 97% on R/A; Weight 77.11 kg jd3 (R); Height 5 ft. 4 in. (162.56 cm) (R); Pain 0/10; 18:16 BP 142 / 89; Pulse 70; Resp 18 S; Pulse Ox 99% on R/A; jd3 18:25 BP 142 / 89; Pulse 74; Resp 20 S; Pulse Ox 98% on R/A; jd3 17:17 Body Mass Index 29.18 (77.11 kg, 162.56 cm) jd3 Carl Coma Score: 17:25 Eye Response: spontaneous(4). Verbal Response: oriented(5). Motor Response: obeys cp commands(6). Total: 15. NIH Stroke Scale Scores: 17:19 NIHSS Score: 1 jd3 17:22 NIHSS Score: 1 cp ED Course: 17:13 Patient arrived in ED. jd3 17:13 Neftaly Quintana PA is PHCP. cp 17:13 Scott Webb MD is Attending Physician. cp 17:16 Triage completed. jd3 17:18 Arm band placed on. jd3 17:18 Maintain EMS IV. Dressing intact. Good blood return noted. Site clean \\T\\ dry. Gauge \\T\\ lady 3 site: 18 G left AC. 17:21 Patient has correct armband on for positive identification. Placed in gown. Bed in low jd3 position. Call light in reach. Side rails up X2. gambling monitor on. Pulse ox on. NIBP on. 17:24 Gilmar Alvarez RN is Primary Nurse. jd3 17:33 Warm blanket given. Pillow given. Verbal reassurance given. jp3 17:34 EKG done, by ED staff, reviewed by Neftaly REYES. jp3 18:49 No provider procedures requiring assistance completed. Patient transferred, IV remains jd3 in place. Administered Medications: 18:15 Drug: Keppra 1500 mg Route: IV; Rate: calculated rate; Site: left antecubital; jd3 18:34 Follow up: Response: No adverse reaction; IV Status: Completed infusion; IV Intake: jd3 100ml Intake: 18:34 IV: 100ml; Total: 100ml. jd3 Outcome: 18:10 ER care complete, transfer ordered by MD. clinton 18:49 Transferred by helicopter to [facility], Transfer form completed. X-rays sent jd3 w/ patient. 18:49 Condition: stable 18:49 Instructed on the need for transfer, Demonstrated understanding of instructions. 18:50 Patient left the ED. jd3 NIH Stroke Scale - NIH Stroke Score Date: 07/04/2020 Time: 17:19 Total Score = 1 1a. Level of Consciousness (LOC) - 0(Alert) 1b. Level of Consciousness (LOC) (Year \\T\\ Age) - 0(Both) 1c. LOC Commands (Open \\T\\ Closes Eyes/Chief Construction Inspector) - 0(Both) 2. Best Gaze (Lateral Gaze Paresis) - 0(Normal) 3. Visual Field Loss - 0(No visual loss) 4. Facial Palsy - 0(Normal) 5a. Left Arm: Motor (10-second hold) - 0(No drift) 5b. Right Arm: Motor (10-second hold) - 0(No drift) 6a. Left Leg: Motor (5-second hold - always test supine) - 0(No drift) 6b. Right Leg: Motor (5-second hold - always test supine) - 0(No drift) 7. Limb Ataxia (finger/nose \\T\\ heel/nuñez - test with eyes open) - 0(Absent) 8. Sensory Loss (pinprick arms/legs/face) - 0(Normal) 9. Best Language: Aphasia (description/naming/reading) - 0(No aphasia) 10. Dysarthria (speech clarity - read or repeat words) - 1(Mild to Moderate) 11. Extinction and Inattention (visual/tactile/auditory/spatial/personal) - 0(No abnormality) Initials: [facility] NIH Stroke Scale - NIH Stroke Score Date: 07/04/2020 Time: 17:22 Total Score = 1 1a. Level of Consciousness (LOC) - 0(Alert) 1b. Level of Consciousness (LOC) (Year \\T\\ Age) - 0(Both) 1c. LOC Commands (Open \\T\\ Closes Eyes/Chief Construction Inspector) - 0(Both) 2. Best Gaze (Lateral Gaze Paresis) - 0(Normal) 3. Visual Field Loss - 0(No visual loss) 4. Facial Palsy - 0(Normal) 5a. Left Arm: Motor (10-second hold) - 0(No drift) 5b. Right Arm: Motor (10-second hold) - 0(No drift) 6a. Left Leg: Motor (5-second hold - always test supine) - 0(No drift) 6b. Right Leg: Motor (5-second hold - always test supine) - 0(No drift) 7. Limb Ataxia (finger/nose \\T\\ heel/nuñez - test with eyes open) - 0(Absent) 8. Sensory Loss (pinprick arms/legs/face) - 0(Normal) 9. Best Language: Aphasia (description/naming/reading) - 0(No aphasia) 10. Dysarthria (speech clarity - read or repeat words) - 1(Mild to Moderate) 11. Extinction and Inattention (visual/tactile/auditory/spatial/personal) - 0(No abnormality) Initials: cp Signatures: Claudia Tapia RN RN bb Cass Craven RN RN ss Neftaly Quintana PA PA cp Gilmar Alvarez RN RN jJuan F Silva jp3 Corrections: (The following items were deleted from the chart) 18:49 18:25 Reassessment: Patient appears in no apparent distress at this time. No jd3 changes from previously documented assessment. Patient and/or family updated on plan of care and expected duration. Pain level reassessed. report given to Yamilet Ramos RN at [facility] in [place]. Patient denies pain at this time. jd3
--- NOTE | 2020-07-04 18:13 | RAD REPORT ---
EXAM DESCRIPTION: CT - C Spine Wo Con - 07/04/2020 6:04 pm CLINICAL HISTORY: intracranial bleed Trauma, head injury, neck injury COMPARISON: No comparisons FINDINGS: The cervical vertebral body heights are maintained. Moderate multilevel midcervical degene rative change with disc thinning and posterior osteophyte. No evidence of acute cervical spine fracture or subluxation. Prevertebral soft tissues are normal in thickness. IMPRESSION: Negative for acute cervical spine abnormality. Moderate midcervical degenerative changes. All CT scans are performed using dose optimization technique as appropriate and may include automated exposure control or mA/KV adjustment according to patient size.
[2020-07-04] MEDS ORDERED: levETIRAcetam 1,500 MG in NA CHLORIDE 0.9% 100 ML IV SCH (18:15)
[2020-07-04 18:41] LABS: Alkaline Phosphatase 93 U/L (45-117); BUN Blood Urea Nitrogen 33 mg/dL (7-18); Bicarbonate 23 mmol/L (21-32); Bilirubin Direct 2.3 mg/dL (0-0.2); Bilirubin Total 4.1 mg/dL (0.2-1.0); Glucose Level 99 mg/dL (74-106); Magnesium 2.6 mg/dL (1.8-2.4); NT PRO-BNP 769 pg/mL (<125); Potassium 3.5 mmol/L (3.5-5.1); Protein, Total 8.5 g/dL (6.4-8.2); Sodium Level 137 mmol/L (136-145)
--- NOTE | 2020-07-04 18:55 | RAD REPORT ---
EXAM DESCRIPTION: RAD - Chest Single View - 07/04/2020 6:37 pm CLINICAL HISTORY: AMS Chest pain. COMPARISON: Chest Single View dated 01/11/2020; Chest Single View dated 01/10/2020; Chest Single View dated 01/08/2020; Chest Single View dated 01/08/2020 FINDINGS: Portable technique limits examination quality. The lungs are grossly clear. The heart is normal in size. No displaced fractures. IMPRESSION: No acute intrathoracic process suspected.
[2020-07-04 18:56] VITALS: TEMP 98.4
[2020-07-04 18:58] VITALS: BP 142/89
[2020-07-04 18:59] VITALS: O2SAT 98
[2020-07-04 19:15] LABS: AST/SGOT 1241 U/L (15-37)
[2020-07-04 19:16] LABS: ALT/SGPT 338 U/L (12-78)
[2020-07-04 19:53] LABS: Creatine Phosphokinase > 20000 U/L (39-308)
[2020-07-04 21:26] LABS: Blood Morphology Comment NOT SEEN (NOT SEEN); Platelet Estimate DECR; Urine White Blood Cell Casts OK
--- NOTE | 2020-07-05 12:36 | EKG ---
Test Date: 2020-07-04 Test Time: 17:32:41 Colon And Rectal Surgeon: ROB MEASUREMENT RESULTS: Intervals: Rate: 77 ID: [id number] QRSD: 94 QT: 414 QTc: 468 [place]: P: 29 ID: [id number] QRS: 15 T: 54 INTERPRETIVE STATEMENTS: Normal sinus rhythm Normal ECG Compared to ECG 11/09/2010 22:30:14 Sinus tachycardia no longer present Electronically Signed On 07-05-20 12:35:31 CDT by Kiko Deutsch
== END 2020-07-04 18:50 | disposition short-term general hospital (02) ==
LOC: ER 17:03
DX: S06.6X0A Traumatic subarachnoid hemorrhage without loss of consciousness, initial encounter (principal); W19.XXXA Unspecified fall, initial encounter; Y93.9 Activity, unspecified; Y92.89 Other specified places as the place of occurrence of the external cause; Z72.0 Tobacco use
CPT/HCPCS: 36415; 70450; 71045; 72125; 80048; 80076; 80320; 82140; 82550; 83735; 83880; 84484; 85025; 85610; 93005; 96365; 99285; J1953

== ENCOUNTER 2020-11-20 20:58 | Emergency (ER) | payer SELFPAY ==
--- NOTE | 2020-11-20 21:59 | ER ---
Nurse's Notes [facility] Name: Aureliano Sheikh Jr Age: 55 yrs Sex: Male : 1965 Arrival Date: 11/20/2020 Time: 21:00 Bed External Waiting Private MD: Diagnosis: Presentation: 11/20 21:00 Chief complaint: Patient states: Fell on the ground at home. Sister called EMS. States ll1 his head hurts, denies LOC. Coronavirus screen: Client denies travel out of the [place] in the last 14 days. At this time, the client does not indicate any symptoms associated with coronavirus-19. Ebola Screen: Patient denies travel to an Ebola-affected area in the 21 days before illness onset. Initial Sepsis Screen: Does the patient meet any 2 criteria? No. Patient's initial sepsis screen is negative. Does the patient have a suspected source of infection? No. Patient's initial sepsis screen is negative. Risk Assessment: Do you want to hurt yourself or someone else? Patient reports no desire to harm self or others. Onset of symptoms was November 20, 2020. 21:00 Method Of Arrival: Wheelchair ll1 21:00 Acuity: LORETTA 3 ll1 Historical: - Allergies: 21:02 No Known Allergies; ll1 - PMHx: 21:02 stroke; Hypertension; liver CA; ll1 - PSHx: 21:02 brain sx at a young age; ll1 - Immunization history:: Flu vaccine is not up to date. - Social history:: Smoking status: Patient reports the use of cigarette tobacco products, smokes one pack cigarettes per day. Vital Signs: 21:00 BP 137 / 83; Pulse 87; Resp 18; Temp 98.8; Pulse Ox 97% ; Pain 4/10; ll1 ED Course: 21:00 Patient arrived in ED. ll1 21:01 Triage completed. ll1 21:02 Arm band placed on. ll1 Administered Medications: No medications were administered Outcome: 21:57 Eloped from waiting room, post triage evaluation and consult. pt yelling at ED staff sg and security about waiting for a room. pt encouraged to please stop yelling at staff, pt left the ED 21:57 Condition: stable 21:59 Patient left the ED. sg Signatures: Chris Coley RN RN Luana Lambsay, RN RN ll1
[2020-11-20 22:14] VITALS: BP 137/83; TEMP 98.8; O2SAT 97
== END 2020-11-20 21:59 | disposition left against medical advice (07) ==
LOC: ER 20:58
DX: Z53.21 Procedure and treatment not carried out due to patient leaving prior to being seen by health care provider (principal)
CPT/HCPCS: 99281

== ENCOUNTER 2020-12-06 19:37 | Emergency (ER) | payer SELFPAY ==
[2020-12-06] MEDS ORDERED: ACETAMINOPHEN 500 MG TAB ONE (20:10)
[2020-12-06] MEDS ORDERED: NA CHLORIDE 0.9% 2,000 ML ONE (20:11)
[2020-12-06 20:22] LABS: Basophils % 0.8 % (0-1.3); Hematocrit 38.3 % (39.6-49.0); Lymphocytes % 17.7 % (15.3-44.8); MPV 10.6 fL (7.6-11.3); RBC Red Blood Cell Count 4.74 M/uL (4.33-5.43)
[2020-12-06 20:27] LABS: Protime INR 1.31
--- NOTE | 2020-12-06 20:36 | RAD REPORT ---
EXAM DESCRIPTION: RAD - Chest Single View - 12/06/2020 8:15 pm CLINICAL HISTORY: FEVER COMPARISON: Portable July 04 TECHNIQUE: AP portable chest image was obtained 12/06/2020 8:15 pm . FINDINGS: Lung volumes are low. No peripheral mass, consolidation or failure finding. Heart and vasc ulature are normal. No measurable pleural effusion and no pneumothorax. No acute bony abnormality see n. No acute aortic findings suspected. IMPRESSION: Limited shallow inspiration chest film with no acute cardiopulmonary process.
[2020-12-06] MEDS ORDERED: NA CHLORIDE 0.9% 1,000 ML ONE (20:46)
[2020-12-06 20:47] LABS: ALT/SGPT 222 U/L (12-78); AST/SGOT 246 U/L (15-37); Albumin 3.2 g/dL (3.4-5.0); Alkaline Phosphatase 114 U/L (45-117); BUN Blood Urea Nitrogen 19 mg/dL (7-18); Bicarbonate 21 mmol/L (21-32); Bilirubin Direct 0.7 mg/dL (0-0.2); Bilirubin Total 1.8 mg/dL (0.2-1.0); Creatine Phosphokinase 94 U/L (39-308); Glucose Level 125 mg/dL (74-106); Lipase 103 U/L (73-393); Potassium 3.7 mmol/L (3.5-5.1); Protein, Total 8.8 g/dL (6.4-8.2); Sodium Level 138 mmol/L (136-145); Troponin (Emerg Dept Use Only) < 0.02 ng/mL (0.0-0.045)
[2020-12-06 20:53] LABS: Blood Morphology Comment NOT SEEN (NOT SEEN); Platelet Estimate DECR; Platelets, Giant PRESENT; White Blood Cell Scan OK (OK)
[2020-12-06] MEDS ORDERED: NA CHLORIDE 0.9% 100 ML ONE (21:04)
[2020-12-06] MEDS ORDERED: LEVETIRACETAM 500 MG/5 ML VIAL IV ONE (21:04)
[2020-12-06] MEDS ORDERED: CEFTRIAXONE/SWI 1gm 1 GM/10 ML SYR ONE (21:04)
--- NOTE | 2020-12-06 21:05 | RAD REPORT ---
EXAM DESCRIPTION: CT - Head Brain Wo Cont - 12/06/2020 8:41 pm CLINICAL HISTORY: SEIZURE COMPARISON: Head Brain Wo Cont dated 07/04/2020 TECHNIQUE: Axial 5 mm thick images of the head were obtained without IV contrast. All CT scans are performed using dose optimization technique as appropriate and may include automated exposure control or mA/KV adjustment according to patient size. FINDINGS: No intracranial hemorrhage, mass, edema or shift of mid-line structures. No acute cortical based infarction. No cortical edema or sulcal effacement. Encephalomalacia is present at the right f rontal parietal convexity similar to comparison. The multiple intracranial hemorrhages seen on the 2019 comparison at all resolved. There is some associated encephalomalacia at the hemorrhage sit es. Ventricles are enlarged. Atrophy changes are present but appear fractionally progressive from Jun. Ventricles are out of proportion to the volume loss and also fractionally increased from . Mastoid air cells and paranasal sinuses are clear. No acute bony findings. IMPRESSION: No acute intracranial findings identified. Multiple hemorrhages seen June 2020 have re solved. Atrophy and ventriculomegaly have both progressed slightly since June 2020. Ventricular enlargemen t appears to be in proportion to the volume loss progression.
[2020-12-06 21:13] LABS: SARS-COV-2 RT PCR NEGATIVE (NEGATIVE)
[2020-12-06 21:13] LABS: Barbiturates NEGATIVE (NEGATIVE); Benzodiazepines NEGATIVE (NEGATIVE); Cocaine NEGATIVE (NEGATIVE); METHAMPHETAM NEGATIVE (NEGATIVE); Methadone NEGATIVE (NEGATIVE); Opiates NEGATIVE (NEGATIVE); Phencyclidine NEGATIVE (NEGATIVE); THC Cannibis NEGATIVE (NEGATIVE)
[2020-12-06 21:14] LABS: Urine Bacteria <20 /HPF (NONE SEEN); Urine Mucus 1+ /HPF (NONE SEEN); Urine RBC <5 /HPF (NONE SEEN)
[2020-12-06 21:15] LABS: Urine Blood NEGATIVE (NEG); Urine Glucose NEGATIVE (NEG); Urine Specific Gravity >1.030 (1.005-1.030)
[2020-12-06 21:16] LABS: Urine Protein 2+ (NEG); Urine pH 5.5 (5.0-7.0)
--- NOTE | 2020-12-06 23:52 | ER ---
Nurse's Notes [facility] Name: Aureliano Sheikh Jr Age: 55 yrs Sex: Male : 1965 Arrival Date: 12/06/2020 Time: 19:43 Bed 4 Private MD: Diagnosis: Epilepsy and recurrent seizures;Fever, unspecified Presentation: 12/06 19:43 Chief complaint: EMS states: Toned out family reported pt had a seizure, has a history ea of seizures but has not had one in over a year. EMS reported pt was post ictal upon arrival. Coronavirus screen: At this time, the client does not indicate any symptoms associated with coronavirus-19. Ebola Screen: No symptoms or risks identified at this time. Initial Sepsis Screen: Does the patient meet any 2 criteria? HR > 90 bpm. Does the patient have a suspected source of infection? No. Patient's initial sepsis screen is negative. Risk Assessment: Do you want to hurt yourself or someone else? Patient reports no desire to harm self or others. Onset of symptoms was December 06, 2020. 19:43 Method Of Arrival: EMS: [facility] ea 19:43 Acuity: LORETTA 3 ea Triage Assessment: 20:10 General: Appears in no apparent distress. Behavior is calm, cooperative. Pain: Denies ea pain. Neuro: Level of Consciousness is awake, alert, obeys commands, Oriented to person, place, situation. Respiratory: Airway is patent Respiratory effort is even, unlabored, Respiratory pattern is regular, symmetrical. Derm: Skin is pink, warm \T\ dry. Historical: - Allergies: 20:12 No Known Allergies; ea - PMHx: 20:12 stroke; LIVER CA; Hypertension; ea - PSHx: 20:12 brain sx at a young age; ea - Immunization history:: Adult Immunizations unknown. - Social history:: Smoking status: unknown. Screenin:08 Abuse screen: Denies threats or abuse. Nutritional screening: No deficits noted. ea Tuberculosis screening: No symptoms or risk factors identified. Fall Risk IV access (20 points). Assessment: 20:14 Reassessment: see triage assessment. ea 20:26 Reassessment: Nikolai [id number] Martha [phone]. ea 20:44 Reassessment: Patient and/or family updated on plan of care and expected duration. Pain ea level reassessed. Patient is alert, oriented x 3, equal unlabored respirations, skin warm/dry/pink. Returned from CT. 21:30 Reassessment: Patient and/or family updated on plan of care and expected duration. Pain ea level reassessed. Pt resting with eyes closed. Respirations even and unlabored, chest expansions even and symmetrical. No obvious s/s of pain or discomfort noted at this time. 22:38 Reassessment: Patient and/or family updated on plan of care and expected duration. Pain ea level reassessed. Pt resting with eyes closed. Respirations even and unlabored, chest expansions even and symmetrical. No obvious s/s of pain or discomfort noted at this time. 23:34 Reassessment: Patient and/or family updated on plan of care and expected duration. Pain ea level reassessed. Pt resting with eyes closed. Respirations even and unlabored, chest expansions even and symmetrical. No obvious s/s of pain or discomfort noted at this time. 12/07 00:16 Reassessment: Patient and/or family updated on plan of care and expected duration. Pain ea level reassessed. Patient is alert, oriented x 3, equal unlabored respirations, skin warm/dry/pink. Discharge instruction given to patient, verbalized the understanding of instruction. Pt left ED via wheelchair per tech. Pt tolerating well. Vital Signs: 12/06 19:43 BP 130 / 86; Pulse 128; Resp 16; Temp 101.8; Pulse Ox 94% on R/A; Weight 68.04 kg; ea Height 5 ft. 4 in. (162.56 cm); 20:32 BP 122 / 107; Pulse 110; Resp 19; Temp 99.8; Pulse Ox 95% on R/A; ea 20:44 BP 124 / 61; Pulse 108; Resp 18; Pulse Ox 96% ; ea 22:32 BP 115 / 75; Pulse 93; Resp 18; Temp 99.7; Pulse Ox 96% on R/A; rv 23:34 BP 127 / 69; Pulse 86; Resp 18; Temp 99.9; Pulse Ox 94% ; ea 19:43 Body Mass Index 25.75 (68.04 kg, 162.56 cm) ea [place] Coma Score: 20:10 Eye Response: spontaneous(4). Verbal Response: oriented(5). Motor Response: obeys ea commands(6). Total: 15. ED Course: 19:43 Patient arrived in ED. ea 19:43 Neftaly Quintana PA is PHCP. cp 19:43 Dale Parikh MD is Attending Physician. cp 19:44 Iggy Perez RN is Primary Nurse. rv 19:47 Triage completed. ea 19:50 Attending Physician role handed off by Dale Parikh MD luke 19:50 Neftaly Andrews MD is Attending Physician. luke 19:50 Inserted saline lock: 20 gauge in right forearm, using aseptic technique. ,using rv aseptic technique. per Malik CLIFTON Blood collected. 19:50 Initial lab(s) drawn, by ms, sent to lab. First set of blood cultures drawn by me. rv 20:09 Arm band placed on right wrist. Patient placed in an exam room, on a stretcher, on ea plate roller, on pulse oximetry. 20:09 Patient has correct armband on for positive identification. Placed in gown. Bed in low ea position. Call light in reach. Side rails up X2. Seizure precautions initiated. 20:14 Chest Single View XRAY In Process Unspecified. EDMS 20:15 Second set of blood cultures drawn by me. rv 20:41 CT Head Brain wo Cont In Process Unspecified. EDMS 23:51 Kris Gonzalez MD is Referral Physician. cp 12/07 00:15 No provider procedures requiring assistance completed. IV discontinued, intact, ea bleeding controlled, No redness/swelling at site. Pressure dressing applied. Administered Medications: 12/06 20:01 Drug: Acetaminophen 1000 mg Route: PO; ea 21:03 Follow up: Response: No adverse reaction rv 20:01 Drug: NS 0.9% (30 ml/kg) 30 ml/kg Route: IV; Rate: bolus; Site: right forearm; ea 12/07 00:18 Follow up: Response: No adverse reaction; IV Status: Completed infusion; IV Intake: ea 2050ml 12/06 20:54 Drug: Rocephin - (cefTRIAXone) 1 grams Route: IVPB; Infused Over: 30 mins; Site: right ea forearm; 21:03 Follow up: IV Status: Completed infusion rv 20:57 Drug: Keppra 1000 mg Route: IV; Rate: calculated rate; Site: right forearm; ea 21:10 Follow up: Response: No adverse reaction; IV Status: Completed infusion ea Intake: 12/07 00:18 IV: 2050ml; Total: 2050ml. ea Outcome: 12/06 23:51 Discharge ordered by . oz 12/07 00:16 Discharged to home via wheelchair, with family. ea Condition: stable Discharge instructions given to patient, Instructed on discharge instructions, follow up and referral plans. medication usage, Demonstrated understanding of instructions, follow-up care, medications. 00:17 Patient left the ED. ea Signatures: Dispatcher [employer] EDNeftaly Montgomery MD MD cha Page, Corey, PA PA cp Antunez, Elena, RN RN Iggy Reilly, RN RN rv Corrections: (The following items were deleted from the chart) 12/06 20:14 20:10 Pain: Complains of pain in abdomen ea ea 21:27 19:55 Inserted saline lock: 20 gauge in right forearm, using aseptic technique. ,using rv aseptic technique. per Malik CLIFTON Blood collected. ea
--- NOTE | 2020-12-06 23:52 | EDPHYS ---
Physician Documentation [facility] Name: Aureliano Sheikh Jr Age: 55 yrs Sex: Male : 1965 Arrival Date: 12/06/2020 Time: 19:43 Bed 4 Private MD: ED Physician Neftaly Andrews HPI: 12/06 19:44 This 55 yrs old Male presents to ER via Unassigned with complaints of Probable cp Seizure. 19:44 The patient presents after having a single isolated seizure, that lasted an unknown cp period of time, the episode(s) was witnessed, by family. Character of seizure(s): Loss of consciousness: the patient experienced loss of consciousness, Motor activity: generalized, shaking all over, Incontinence: none. Seizure onset: just prior to arrival. Seizure Hx: Last seizure: The patient's last seizure was approximately 1 year(s) ago, Seizure medications: none. Associated injury: The patient did not suffer any apparent associated injury. 19:45 Current symptoms: confusion, fever. cp Historical: - Allergies: 20:12 No Known Allergies; ea - PMHx: 20:12 stroke; LIVER CA; Hypertension; ea - PSHx: 20:12 brain sx at a young age; ea - Immunization history:: Adult Immunizations unknown. - Social history:: Smoking status: unknown. ROS: 19:50 Constitutional: Positive for fever, Negative for body aches, chills, poor PO intake. cp 19:50 Eyes: Negative for injury, pain, redness, and discharge. cp 19:50 Cardiovascular: Negative for chest pain, palpitations. 19:50 Respiratory: Negative for cough, shortness of breath, wheezing. 19:50 Abdomen/GI: Negative for abdominal pain, nausea, vomiting, and diarrhea. 19:50 Back: Negative for pain at rest, pain with movement. 19:50 : Negative for urinary symptoms, testicular pain 19:50 Skin: Negative for rash. 19:50 Neuro: Positive for history of seizure, Negative for altered mental status, headache. 19:50 All other systems are negative. Exam: 19:55 Constitutional: The patient appears in no acute distress, alert, awake, cp non-diaphoretic, non-toxic, well developed, well nourished. 19:55 Head/Face: Normocephalic, atraumatic. cp 19:55 Eyes: Periorbital structures: appear normal, Pupils: equal, round, and reactive to light and accomodation, Extraocular movements: intact throughout, Conjunctiva: normal, no exudate, no injection, Sclera: no appreciated abnormality, Lids and lashes: appear normal, bilaterally. 19:55 ENT: External ear(s): are unremarkable, Ear canal(s): are normal, clear, TM's: dullness, bilaterally, Nose: is normal, Mouth: Lips: moist, Oral mucosa: moist, Posterior pharynx: Airway: no evidence of obstruction, patent, Tonsils: are normal in appearance, swelling, is not appreciated, erythema, is not appreciated, exudate, is not appreciated. 19:55 Neck: ROM/movement: is normal, is supple, without pain, no range of motions limitations, no meningismus, no nuchal rigidity. 19:55 Chest/axilla: Inspection: normal, Palpation: crepitus, tenderness, is not appreciated. 19:55 Cardiovascular: Rate: tachycardic, Rhythm: regular, Edema: is not appreciated, JVD: is not appreciated. 19:55 Respiratory: the patient does not display signs of respiratory distress, Respirations: normal, no use of accessory muscles, no retractions, labored breathing, is not present, Breath sounds: are clear throughout, no decreased breath sounds, no stridor, no wheezing. 19:55 Abdomen/GI: Inspection: abdomen appears normal, Bowel sounds: active, all quadrants, Palpation: abdomen is soft and non-tender, in all quadrants. 19:55 Back: pain, is absent, ROM is normal. 19:55 Skin: cellulitis, is not appreciated, no rash present. 19:55 Neuro: Orientation: to person, situation, Not oriented to time, Mentation: able to follow commands, confused, Cerebellar function: is grossly normal, Motor: moves all fours, strength is normal, Sensation: is normal. 19:57 ECG was reviewed by the Attending Physician. cp Vital Signs: 19:43 BP 130 / 86; Pulse 128; Resp 16; Temp 101.8; Pulse Ox 94% on R/A; Weight 68.04 kg; ea Height 5 ft. 4 in. (162.56 cm); 20:32 BP 122 / 107; Pulse 110; Resp 19; Temp 99.8; Pulse Ox 95% on R/A; ea 20:44 BP 124 / 61; Pulse 108; Resp 18; Pulse Ox 96% ; ea 22:32 BP 115 / 75; Pulse 93; Resp 18; Temp 99.7; Pulse Ox 96% on R/A; rv 23:34 BP 127 / 69; Pulse 86; Resp 18; Temp 99.9; Pulse Ox 94% ; ea 19:43 Body Mass Index 25.75 (68.04 kg, 162.56 cm) ea Carl Coma Score: 20:10 Eye Response: spontaneous(4). Verbal Response: oriented(5). Motor Response: obeys ea commands(6). Total: 15. MDM: 19:50 Patient medically screened. cp 23:50 Data reviewed: vital signs, nurses notes, lab test result(s), EKG, radiologic studies, cp CT scan, plain films. 23:50 Test interpretation: by ED physician or midlevel provider: ECG, plain radiologic cp studies. Counseling: I had a detailed discussion with the patient and/or guardian regarding: the historical points, exam findings, and any diagnostic results supporting the discharge/admit diagnosis, lab results, radiology results, the need for outpatient follow up, a neurologist, to return to the emergency department if symptoms worsen or persist or if there are any questions or concerns that arise at home. Response to treatment: the patient's symptoms have markedly improved after treatment. ED course: VSS. Patient back at baseline, fever resolved and patient appears non-toxic. Repeat lactate normal. Will discharge to home for continued monitoring. 12/06 19:47 Order name: Urine Culture 12/06 19:47 Order name: Basic Metabolic Panel; Complete Time: 20:51 12/06 20:52 Interpretation: Normal except: GLUC 125; BUN 19; GFR 77. 12/06 19:47 Order name: Blood Culture Adult (2) 12/06 19:47 Order name: CBC with Diff; Complete Time: 20:58 12/06 20:59 Interpretation: Normal except: HGB 12.7; HCT 38.3; MCV 80.9; MCH 26.7; PLT 53; RDW 18.3. 12/06 19:47 Order name: CPK; Complete Time: 20:51 cp 12/06 19:47 Order name: Lactate; Complete Time: 20:58 cp 12/06 21:01 Interpretation: Normal except: LAC 6.7. cp 12/06 19:47 Order name: LFT's; Complete Time: 20:51 cp 12/06 21:02 Interpretation: Normal except: AST 246; ALT 222; BILIT 1.8; BILID 0.7; TP 8.8; ALB 3.2; cp GLOB 5.6; A/G 0.6. 12/06 19:47 Order name: Lipase; Complete Time: 20:51 cp 12/06 19:47 Order name: Procalcitonin; Complete Time: 21:25 cp 12/06 21:26 Interpretation: Abnormal: Procalcitonin 0.09. cp 12/06 19:47 Order name: Protime (+inr); Complete Time: 20:45 cp 12/06 19:47 Order name: Ptt, Activated; Complete Time: 20:45 cp 12/06 19:47 Order name: Troponin (emerg Dept Use Only); Complete Time: 20:51 cp 12/06 19:47 Order name: Urine Microscopic Only; Complete Time: 21:25 cp 12/06 19:47 Order name: Chest Single View XRAY; Complete Time: 20:45 cp 12/06 20:46 Interpretation: Report reviewed. 12/06 19:48 Order name: CT Head Brain wo Cont; Complete Time: 21:10 cp 12/06 19:49 Order name: Urine Culture EDUT 12/06 19:50 Order name: UDS; Complete Time: 21:25 cp 12/06 19:50 Order name: ETOH Level; Complete Time: 22:52 cp 12/06 20:09 Order name: Glucose, Ancillary Testing; Complete Time: 20:14 EDUT 12/06 20:27 Order name: CBC Smear Scan; Complete Time: 20:58 EDUT 12/06 20:59 Order name: Urine Dipstick--Ancillary (enter results); Complete Time: 21:25 sg 12/06 21:25 Interpretation: Normal except: USPGR >1.030; UPROT 2+; U NIT POSITIVE. cp 12/06 21:14 Order name: COVID-19/FLU A+B; Complete Time: 21:25 EDMS 12/06 23:20 Order name: Lactate Sepsis 2 HR Follow-up; Complete Time: 23:40 EDMS 12/06 19:48 Order name: Accucheck; Complete Time: 20:02 cp 12/06 19:48 Order name: Cardiac monitoring; Complete Time: 20:02 cp 12/06 19:48 Order name: EKG - Nurse/Tech; Complete Time: 20:03 cp 12/06 19:48 Order name: IV Saline Lock - Large Bore; Complete Time: 20:03 cp 12/06 19:48 Order name: Labs collected and sent; Complete Time: 20:03 cp 12/06 19:48 Order name: O2 Per Protocol; Complete Time: 20:03 cp 12/06 19:48 Order name: O2 Sat Monitoring; Complete Time: 20:03 cp 12/06 19:48 Order name: Urine Dipstick-Ancillary (obtain specimen); Complete Time: 21:09 cp EC:57 Rate is 122 beats/min. Rhythm is regular. OR interval is normal. QRS interval is cp normal. QT interval is normal. Interpreted by me. Reviewed by me. Administered Medications: 20:01 Drug: Acetaminophen 1000 mg Route: PO; ea 21:03 Follow up: Response: No adverse reaction rv 20:01 Drug: NS 0.9% (30 ml/kg) 30 ml/kg Route: IV; Rate: bolus; Site: right forearm; ea 12/07 00:18 Follow up: Response: No adverse reaction; IV Status: Completed infusion; IV Intake: ea 2050ml 12/06 20:54 Drug: Rocephin - (cefTRIAXone) 1 grams Route: IVPB; Infused Over: 30 mins; Site: right ea forearm; 21:03 Follow up: IV Status: Completed infusion rv 20:57 Drug: Keppra 1000 mg Route: IV; Rate: calculated rate; Site: right forearm; ea 21:10 Follow up: Response: No adverse reaction; IV Status: Completed infusion ea Disposition: 12/07 07:45 Co-signature as Attending Physician, Neftaly Andrews MD I agree with the assessment and luke plan of care. Disposition: 12/06/20 23:51 Discharged to Home. Impression: Epilepsy and recurrent seizures, Fever, unspecified. - Condition is Stable. - Discharge Instructions: Fever, Adult, Seizure, Adult. - Prescriptions for Augmentin 875- 125 mg Oral Tablet - take 1 tablet by ORAL route every 12 hours for 10 days; 20 tablet. Keppra 500 mg Oral Tablet - take 1 tablet by ORAL route every 12 hours; 20 tablet. - Medication Reconciliation Form, Thank You Letter, Antibiotic Education, Prescription Opioid Use form. - Follow up: Kris Gonzalez MD; When: 1 - 2 days; Reason: seizure disorder. - Problem is an ongoing problem. - Symptoms have improved. Signatures: Dispatcher [employer] EDMS Neftaly Andrews MD MD cha Page, Corey, PA PA cp Margie Olsen, RN RN ea Iggy Perez RN rv Corrections: (The following items were deleted from the chart) 12/06 20:18 19:49 Influenza Screen (A \T\ B)+BA.LAB.BRZ ordered. EDMS EDMS 20:21 19:49 CORONAVIRUS+MR.LAB.BRZ ordered. EDMS EDMS 21:02 21:02 Normal except: AST 246; ALT 222; BILIT 1.8; BILID 0.7; TP 8.8; ALB 3.2; GLOB 5.6. cp cp 21:09 19:47 [place] ordered. cp rv 21:10 21:05 Abdomen Pelvis W Con+CT.RAD.BRZ ordered. EDMS EDMS 22:47 22:30 LACTATE+C.LAB.BRZ ordered. EDMS EDMS 12/07 00:17 12/06 23:51 12/06/2020 23:51 Discharged to Home. Impression: Epilepsy and recurrent ea seizures; Fever, unspecified. Condition is Stable. Forms are Medication Reconciliation Form, Thank You Letter, Antibiotic Education, Prescription Opioid Use. Follow up: Kris Gonzalez; When: 1 - 2 days; Reason: seizure disorder. Problem is an ongoing problem. Symptoms have improved. cp
[2020-12-07 00:28] VITALS: BP 127/69; TEMP 99.9; O2SAT 94
--- NOTE | 2020-12-07 11:22 | EKG ---
Test Date: 2020-12-06 Test Time: 19:51:01 Senior Designer: DESHAWN MEASUREMENT RESULTS: Intervals: Rate: 122 PA: 138 QRSD: 94 QT: 316 QTc: 450 [place]: P: 64 PA: 138 QRS: 44 T: 20 INTERPRETIVE STATEMENTS: Sinus tachycardia Otherwise normal ECG Compared to ECG 07/04/2020 17:32:41 Sinus rhythm no longer present Electronically Signed On 12-07-20 11:20:49 [employer] by Kiko Deutsch
== END 2020-12-07 00:17 | disposition home or self-care (01) ==
LOC: ER 19:37
DX: G40.802 Other epilepsy, not intractable, without status epilepticus (principal); Z20.822 Contact with and (suspected) exposure to COVID-19; I10 Essential (primary) hypertension; Z85.05 Personal history of malignant neoplasm of liver
CPT/HCPCS: 0240U; 36415; 70450; 71045; 80048; 80076; 80307; 80320; 81003; 81015; 82550; 82947; 83605; 83690; 84145; 84484; 85025; 85610; 85730; 87040; 87086; 87088; 93005; 96365; 96366; 96375; 99284; J0696; J1953; J7030

== ENCOUNTER 2021-01-02 16:40 | Inpatient (IN) | payer SELFPAY ==
[2021-01-02] MEDS ORDERED: CEFAZOLIN/SWI 1gm 2 GM/20 ML SYR ONE (17:39)
[2021-01-02] MEDS ORDERED: NA CHLORIDE 0.9% 100 ML ONE (17:39)
[2021-01-02] MEDS ORDERED: ACETAMINOPHEN 325 MG TABLET ONE (17:39)
[2021-01-02] MEDS ORDERED: NA CHLORIDE 0.9% 1,000 ML ONE (17:39)
[2021-01-02] MEDS ORDERED: VALACYCLOVIR 500 MG TAB ONE (17:39)
--- NOTE | 2021-01-02 17:49 | ER ---
Nurse's Notes [facility] Name: Aureliano Sheikh Jr Age: 55 yrs Sex: Male : 1965 Arrival Date: 01/02/2021 Time: 16:56 Bed 20 Private MD: Diagnosis: Cellulitis and acute lymphangitis of face;Zoster with other complications-cellulitis;Fever, unspecified;Unspecified cirrhosis of liver;Neutropenia;Thrombocytopenia, unspecified Presentation: 01/02 17:12 Chief complaint: EMS states: Pt c/o rash to L side of face/neck and fever that started ph approx 3-4 days ago. Coronavirus screen: Client denies travel out of the [place] in the last 14 days. Ebola Screen: No symptoms or risks identified at this time. Initial Sepsis Screen: Does the patient meet any 2 criteria? No. Patient's initial sepsis screen is negative. Does the patient have a suspected source of infection? No. Patient's initial sepsis screen is negative. Risk Assessment: Do you want to hurt yourself or someone else? Patient reports no desire to harm self or others. Onset of symptoms was January 02, 2021. 17:12 Method Of Arrival: EMS: [facility] ph 17:12 Acuity: [place] 3 ph Historical: - Allergies: 17:15 No Known Allergies; ph - PMHx: 17:15 Hypertension; LIVER CA; stroke; Seizures; ph - PSHx: 17:15 brain sx at a young age; ph - Immunization history:: Adult Immunizations unknown. - Social history:: Smoking status: . - Family history:: not pertinent. Screenin:14 Abuse screen: Denies threats or abuse. Denies injuries from another. Nutritional ph screening: No deficits noted. Tuberculosis screening: No symptoms or risk factors identified. Fall Risk None identified. Assessment: 17:15 General: Appears in no apparent distress. Behavior is calm, cooperative, appropriate ph for age, Reports fever for > 3 days. Pain: Complains of pain in left jaw, left neck. Neuro: Level of Consciousness is awake, alert, obeys commands, Oriented to person, place, time, situation. Cardiovascular: Capillary refill < 3 seconds in bilateral fingers Patient's skin is warm and dry. Respiratory: Airway is patent Respiratory effort is even, unlabored, Respiratory pattern is regular, symmetrical. Derm: Skin is healthy with good turgor, Skin is pink, warm \T\ dry. Rash noted that is red, vesicular, on left jaw, left neck, left chest. 20:00 General: Appears in no apparent distress. comfortable, Behavior is calm, cooperative, sf appropriate for age. Pain: Complains of pain in left ear, left cheek and left jaw. Neuro: Level of Consciousness is awake, alert, obeys commands, Oriented to person, place, time, situation, Appropriate for age. Cardiovascular: Capillary refill < 3 seconds Patient's skin is warm and dry. Rhythm is sinus rhythm. Respiratory: Airway is patent Respiratory effort is even, unlabored, Respiratory pattern is regular, symmetrical. Derm: Skin is healthy with good turgor, Skin is pink, warm \T\ dry. Rash noted that is red, vesicular, on left ear, left cheek and left jaw. 21:53 Reassessment: Patient appears in no apparent distress at this time. No changes from sf previously documented assessment. Patient and/or family updated on plan of care and expected duration. Pain level reassessed. Patient is alert, oriented x 3, equal unlabored respirations, skin warm/dry/pink. Vital Signs: 16:57 BP 139 / 78 LA (auto/reg); Pulse 100; Resp 20; Temp 100.6(O); Pulse Ox 97% on R/A; dh3 Weight 77.11 kg (R); Height 5 ft. 4 in. (162.56 cm) (R); Pain 4/10; 18:00 BP 132 / 72; Pulse 94; Resp 18; Pulse Ox 98% on R/A; ph 20:18 BP 137 / 76; Pulse 84; Resp 16; Temp 98.6(O); Pulse Ox 97% ; sf 20:30 BP 142 / 74; Pulse 84; Resp 16; Pulse Ox 99% ; sf 21:30 BP 148 / 87; Pulse 84; Resp 16; Pulse Ox 99% ; sf 16:57 Body Mass Index 29.18 (77.11 kg, 162.56 cm) 3 ED Course: 16:56 Patient arrived in ED. ph 16:57 Neftaly Andrews MD is Attending Physician. luke 16:58 Bed in low position. Call light in reach. Side rails up X2. Verbal reassurance given. dh3 Pulse ox on. NIBP on. 16:58 Patient maintains SpO2 saturation greater than 95% on room air. dh3 17:12 Clarisse Hameed RN is Primary Nurse. ph 17:14 Triage completed. ph 17:14 Arm band placed on Patient placed in an exam room, on a stretcher. ph 17:29 XRAY Chest (1 view) In Process Unspecified. EDMS 17:30 Inserted saline lock: 22 gauge in right antecubital area, using aseptic technique. sf ,using [facility]septic technique. [facility]. 17:44 Homer Rodas MD is Hospitalizing Provider. [facility] 19:22 Primary Nurse role handed off by Clarisse Hameed RN [id number] 19:33 No provider procedures requiring assistance completed. Patient admitted, IV remains in ph place. 20:03 Chris Jules RN is Primary Nurse. sf 20:18 Wound care: to left face and chest rash. Cleaned with soap and water, bactroban applied sf per order. Administered Medications: 07:30 Drug: valACYclovir 1000 mg Route: PO; ph 19:32 Follow up: Response: No adverse reaction ph 17:30 Drug: Tylenol 650 mg Route: PO; ph 19:32 Follow up: Response: No adverse reaction ph 17:35 Drug: NS 0.9% 1000 ml Route: IV; Rate: 1 bolus; Site: right antecubital; ph 19:32 Follow up: Response: No adverse reaction; IV Status: Completed infusion; IV Intake: ph 1000ml 20:20 Follow up: IV Status: Completed infusion; IV Intake: 1000ml sf 17:55 Drug: Ancef 2 grams Route: IVPB; Infused Over: 30 mins; Site: right antecubital; ph 18:10 Follow up: Response: No adverse reaction; IV Status: Completed infusion ph 17:57 Drug: Zofran (Ondansetron) 4 mg Route: IVP; Site: right antecubital; ph 19:33 Follow up: Response: No adverse reaction ph 17:59 Drug: morphine 4 mg Route: IVP; Site: right antecubital; ph 19:33 Follow up: Response: No adverse reaction; Pain is decreased; RASS: Alert and Calm (0) ph 20:10 Drug: Bactroban Ointment 2 % 1 application Route: Topical; Site: face; sf 21:51 Follow up: Response: No adverse reaction 20:20 Drug: vancoMYCIN 1 grams Route: IVPB; Infused Over: 2 hrs; Site: right antecubital; 21:51 Follow up: Response: No adverse reaction; IV Status: Completed infusion; IV Intake: sf 250ml Intake: 19:32 IV: 1000ml; Total: 1000ml. ph 20:20 IV: 1000ml; Total: 2000ml. 21:51 IV: 250ml; Total: 2250ml. Outcome: 17:48 Decision to Hospitalize by Provider. luke 22:25 Admitted to Med/surg accompanied by tech, via wheelchair, room 232, Report called to jacob Huggins RN 22:25 Condition: stable 22:58 Patient left the ED. Signatures: Dispatcher [employer] EDNeftaly Montgomery MD MD cha Hall, Patricia, RN RN Yumiko Lux 3 Paola Royal 2 Chris Jules RN RN sf
--- NOTE | 2021-01-02 17:49 | EDPHYS ---
Physician Documentation [facility] Name: Aureliano Sheikh Jr Age: 55 yrs Sex: Male : 1965 Arrival Date: 01/02/2021 Time: 16:56 Bed 20 Private MD: ED Physician Neftaly Andrews HPI: 01/02 17:33 This 55 yrs old Male presents to ER via EMS with complaints of Rash. luke 17:33 The patient's rash thought to be caused by Dermatitis. The rash is located on the left luke ear, left cheek, left jaw, left side of the nose, left zygomatic area and left mandible. The rash can be described as crusted, erythematous, raised. Onset: The symptoms/episode began/occurred 4 day(s) ago. Associated signs and symptoms: Pertinent positives: burning sensation, fever, nausea. Severity of symptoms: At their worst the symptoms were moderate in the emergency department the symptoms are unchanged. Treatment given at home: none. The patient has not experienced similar symptoms in the past. Historical: - Allergies: 17:15 No Known Allergies; ph - PMHx: 17:15 Hypertension; LIVER CA; stroke; Seizures; ph - PSHx: 17:15 brain sx at a young age; ph - Immunization history:: Adult Immunizations unknown. - Social history:: Smoking status: . - Family history:: not pertinent. ROS: 17:33 Constitutional: Negative for fever, chills, and weight loss, Eyes: Negative for injury, luke pain, redness, and discharge, ENT: Negative for injury, pain, and discharge, Neck: Negative for injury, pain, and swelling, Cardiovascular: Negative for chest pain, palpitations, and edema, Respiratory: Negative for shortness of breath, cough, wheezing, and pleuritic chest pain, Abdomen/GI: Negative for abdominal pain, nausea, vomiting, diarrhea, and constipation, Back: Negative for injury and pain, : Negative for injury, bleeding, discharge, and swelling, MS/Extremity: Negative for injury and deformity, Neuro: Negative for headache, weakness, numbness, tingling, and seizure, Psych: Negative for depression, anxiety, suicide ideation, homicidal ideation, and hallucinations, Allergy/Immunology: Negative for hives, rash, and allergies, Endocrine: Negative for neck swelling, polydipsia, polyuria, polyphagia, and marked weight changes, Hematologic/Lymphatic: Negative for swollen nodes, abnormal bleeding, and unusual bruising. 17:33 Skin: Positive for erythema, lesions, rash, swelling, of the face and left mandible and left zygomatic area and left side of the nose and left jaw and left cheek and left ear. Exam: 17:33 Constitutional: This is a well developed, well nourished patient who is awake, alert, luke and in no acute distress. Eyes: Pupils equal round and reactive to light, extra-ocular motions intact. Lids and lashes normal. Conjunctiva and sclera are non-icteric and not injected. Cornea within normal limits. Periorbital areas with no swelling, redness, or edema. ENT: Nares patent. No nasal discharge, no septal abnormalities noted. Tympanic membranes are normal and external auditory canals are clear. Oropharynx with no redness, swelling, or masses, exudates, or evidence of obstruction, uvula midline. Mucous membranes moist. Neck: Trachea midline, no thyromegaly or masses palpated, and no cervical lymphadenopathy. Supple, full range of motion without nuchal rigidity, or vertebral point tenderness. No Meningismus. Chest/axilla: Normal chest wall appearance and motion. Nontender with no deformity. No lesions are appreciated. Cardiovascular: Regular rate and rhythm with a normal S1 and S2. No gallops, murmurs, or rubs. Normal PMI, no JVD. No pulse deficits. Respiratory: Lungs have equal breath sounds bilaterally, clear to auscultation and percussion. No rales, rhonchi or wheezes noted. No increased work of breathing, no retractions or nasal flaring. Abdomen/GI: Soft, non-tender, with normal bowel sounds. No distension or tympany. No guarding or rebound. No evidence of tenderness throughout. Back: No spinal tenderness. No costovertebral tenderness. Full range of motion. MS/ Extremity: Pulses equal, no cyanosis. Neurovascular intact. Full, normal range of motion. Neuro: Awake and alert, GCS 15, oriented to person, place, time, and situation. Cranial nerves II-XII grossly intact. Motor strength 5/5 in all extremities. Sensory grossly intact. Cerebellar exam normal. Normal gait. Psych: Awake, alert, with orientation to person, place and time. Behavior, mood, and affect are within normal limits. 17:33 Skin: cellulitis, that is moderate, induration, that is mild is noted, lesion(s), located on the left ear, left cheek, left jaw, left occipital area, left side of the nose, left zygomatic area, left base of the skull and left mandible, on the face and left mandible and left zygomatic area and left side of the nose and left jaw and left cheek and left ear. 18:22 ECG was reviewed by the Attending Physician. [facility] Vital Signs: 16:57 BP 139 / 78 LA (auto/reg); Pulse 100; Resp 20; Temp 100.6(O); Pulse Ox 97% on R/A; 3 Weight 77.11 kg (R); Height 5 ft. 4 in. (162.56 cm) (R); Pain 4/10; 18:00 BP 132 / 72; Pulse 94; Resp 18; Pulse Ox 98% on R/A; ph 20:18 BP 137 / 76; Pulse 84; Resp 16; Temp 98.6(O); Pulse Ox 97% ; sf 20:30 BP 142 / 74; Pulse 84; Resp 16; Pulse Ox 99% ; sf 21:30 BP 148 / 87; Pulse 84; Resp 16; Pulse Ox 99% ; sf 16:57 Body Mass Index 29.18 (77.11 kg, 162.56 cm) 3 MDM: 16:57 Patient medically screened. [facility] 17:48 Differential diagnosis: impetigo, varicella, allergic reaction. Data reviewed: vital [facility] signs, nurses notes, lab test result(s), EKG, radiologic studies, plain films. Data interpreted: athletic monitor: rate is 100 beats/min, rhythm is regular, Pulse oximetry: on room air is 100.6 %. Test interpretation: by ED physician or midlevel provider: ECG, plain radiologic studies. Counseling: I had a detailed discussion with the patient and/or guardian regarding: the historical points, exam findings, and any diagnostic results supporting the discharge/admit diagnosis, lab results, radiology results, the need for further work-up and treatment in the hospital. 01/02 17:11 Order name: Basic Metabolic Panel [facility] 01/02 17:11 Order name: CBC with Diff; Complete Time: 18:37 [facility] 01/02 17:11 Order name: LFT's; Complete Time: 18:21 [facility] 01/02 17:11 Order name: Magnesium; Complete Time: 18:21 [facility] 01/02 17:11 Order name: NT PRO-BNP; Complete Time: 18:21 [facility] 01/02 17:11 Order name: PT-INR; Complete Time: 18:21 [facility] 01/02 17:11 Order name: Troponin (emerg Dept Use Only); Complete Time: 18:21 [facility] 01/02 17:11 Order name: XRAY Chest (1 view); Complete Time: 18:21 [facility] 01/02 17:11 Order name: Blood Culture Adult (2) 01/02 17:11 Order name: Lactate; Complete Time: 18:21 [facility] 01/02 17:11 Order name: Basic Metabolic Panel; Complete Time: 18:21 EDMS 01/02 19:23 Order name: SARS-COV-2 RT PCR; Complete Time: 19:34 EDMS 01/02 17:11 Order name: EKG; Complete Time: 17:12 [facility] 01/02 17:11 Order name: Cardiac monitoring; Complete Time: 18:04 [facility] 01/02 17:11 Order name: EKG - Nurse/Tech; Complete Time: 19:07 [facility] 01/02 17:11 Order name: IV Saline Lock; Complete Time: 18:04 [facility] 01/02 17:11 Order name: Labs collected and sent; Complete Time: 18:04 [facility] 01/02 17:11 Order name: O2 Per Protocol; Complete Time: 18:05 [facility] 01/02 17:11 Order name: O2 Sat Monitoring; Complete Time: 18:05 [facility] 01/02 17:52 Order name: Misc. Order: clean face lightly and apply bactroban; Complete Time: 20:19 luke EC:22 Rate is 91 beats/min. Rhythm is regular. QRS [place] is Normal. [place] interval is normal. QRS luke interval is normal. QT interval is normal. No Q waves. T waves are Normal. No ST changes noted. Clinical impression: Normal ECG and No evidence of ischemia. Interpreted by me. Reviewed by me. Administered Medications: 07:30 Drug: valACYclovir 1000 mg Route: PO; ph 19:32 Follow up: Response: No adverse reaction ph 17:30 Drug: Tylenol 650 mg Route: PO; ph 19:32 Follow up: Response: No adverse reaction ph 17:35 Drug: NS 0.9% 1000 ml Route: IV; Rate: 1 bolus; Site: right antecubital; ph 19:32 Follow up: Response: No adverse reaction; IV Status: Completed infusion; IV Intake: ph 1000ml 20:20 Follow up: IV Status: Completed infusion; IV Intake: 1000ml sf 17:55 Drug: Ancef 2 grams Route: IVPB; Infused Over: 30 mins; Site: right antecubital; ph 18:10 Follow up: Response: No adverse reaction; IV Status: Completed infusion ph 17:57 Drug: Zofran (Ondansetron) 4 mg Route: IVP; Site: right antecubital; ph 19:33 Follow up: Response: No adverse reaction ph 17:59 Drug: morphine 4 mg Route: IVP; Site: right antecubital; ph 19:33 Follow up: Response: No adverse reaction; Pain is decreased; RASS: Alert and Calm (0) ph 20:10 Drug: Bactroban Ointment 2 % 1 application Route: Topical; Site: face; sf 21:51 Follow up: Response: No adverse reaction sf 20:20 Drug: vancoMYCIN 1 grams Route: IVPB; Infused Over: 2 hrs; Site: right antecubital; sf 21:51 Follow up: Response: No adverse reaction; IV Status: Completed infusion; IV Intake: sf 250ml Disposition: 01/02/21 17:48 Hospitalization ordered by Homer Rodas for Inpatient Admission. Preliminary diagnosis are Cellulitis and acute lymphangitis of face, Zoster with other complications - cellulitis, Fever, unspecified, Unspecified cirrhosis of liver, Neutropenia, Thrombocytopenia, unspecified. - Bed requested for Telemetry/MedSurg (Inpatient). - Status is Inpatient Admission. sf - Condition is Fair. - Problem is new. - Symptoms have improved. Signatures: Dispatcher [employer] EDNeftaly Montgomery MD MD cha Roszak, Josh, PA PA [id number] Clarisse Hameed RN RN ph Garcia, Cindy, RN RN Chris Jules RN RN sf Corrections: (The following items were deleted from the chart) 18:18 17:12 CORONAVIRUS+MR.LAB.BRZ ordered. [facility] EDMI 18:38 17:48 Hospitalization Ordered by Homer Rodas MD for Inpatient Admission. Preliminary [facility] diagnosis is Cellulitis and acute lymphangitis of face; Zoster with other complications - cellulitis; Fever, unspecified. Bed requested for Telemetry/MedSurg (Inpatient). Status is Inpatient Admission. Condition is Fair. Problem is new. Symptoms have improved. [facility] 20:57 18:38 01/02/2021 17:48 Hospitalization Ordered by Homer Rodas MD for Inpatient cg Admission. Preliminary diagnosis is Cellulitis and acute lymphangitis of face; Zoster with other complications - cellulitis; Fever, unspecified; Unspecified cirrhosis of liver; Neutropenia; Thrombocytopenia, unspecified. Bed requested for Telemetry/MedSurg (Inpatient). Status is Inpatient Admission. Condition is Fair. Problem is new. Symptoms have improved. [facility] 22:58 20:57 01/02/2021 17:48 Hospitalization Ordered by Homer Rodas MD for Inpatient sf Admission. Preliminary diagnosis is Cellulitis and acute lymphangitis of face; Zoster with other complications - cellulitis; Fever, unspecified; Unspecified cirrhosis of liver; Neutropenia; Thrombocytopenia, unspecified. Bed requested for Telemetry/MedSurg (Inpatient). Status is Inpatient Admission. Condition is Fair. Problem is new. Symptoms have improved. cg
[2021-01-02 18:00] LABS: Absolute Lymphocytes (CBC) 0.4 K/uL (0.7-4.9); Basophils % 0.7 % (0-1.3); Hematocrit 36.9 % (39.6-49.0); Lymphocytes % 18.5 % (15.3-44.8); MPV 10.1 fL (7.6-11.3); RBC Red Blood Cell Count 4.57 M/uL (4.33-5.43)
[2021-01-02] MEDS ORDERED: VANCOMYCIN/NS 1 gm 1 GM/250 ML BAG IV ONE (18:00)
[2021-01-02 18:01] LABS: Protime INR 1.46
[2021-01-02] MEDS ORDERED: ONDANSETRON 4 MG/2 ML VIAL ONE (18:06)
[2021-01-02] MEDS ORDERED: MORPHINE 4 MG/ML SYR ONE (18:06)
[2021-01-02 18:13] LABS: ALT/SGPT 135 U/L (12-78); AST/SGOT 140 U/L (15-37); Alkaline Phosphatase 101 U/L (45-117); BUN Blood Urea Nitrogen 13 mg/dL (7-18); Bicarbonate 23 mmol/L (21-32); Bilirubin Direct 0.6 mg/dL (0-0.2); Bilirubin Total 1.2 mg/dL (0.2-1.0); Glucose Level 99 mg/dL (74-106); Magnesium 1.8 mg/dL (1.8-2.4); NT PRO-BNP 90 pg/mL (<125); Potassium 3.8 mmol/L (3.5-5.1); Protein, Total 8.1 g/dL (6.4-8.2); Sodium Level 134 mmol/L (136-145); Troponin (Emerg Dept Use Only) < 0.02 ng/mL (0.0-0.045)
--- NOTE | 2021-01-02 18:16 | RAD REPORT ---
EXAM DESCRIPTION: RAD - Chest Single View - 01/02/2021 5:29 pm CLINICAL HISTORY: COUGH COMPARISON: Portable December 06 TECHNIQUE: AP portable chest image was obtained 01/02/2021 5:29 pm . FINDINGS: Lungs are clear. Heart and vasculature are normal. No measurable pleural effusion and no p neumothorax. No acute bony abnormality seen. No acute aortic findings suspected. IMPRESSION: No acute cardiopulmonary process. No significant change from comparison study.
[2021-01-02] MEDS ORDERED: MUPIROCIN 2% OINT 22GM TUBE TOP ONE (18:34)
[2021-01-02] MEDS ORDERED: ONDANSETRON 4 MG/2 ML VIAL IV PRN (22:27)
[2021-01-02] MEDS ORDERED: ACETAMINOPHEN 500 MG TAB PO PRN (22:27)
[2021-01-02] MEDS ORDERED: MORPHINE 2 MG/ML SYR IV PRN (22:27)
--- NOTE | 2021-01-02 23:44 | P.HP ---
Certification for Inpatient Patient admitted to: Inpatient With expected LOS: >2 Midnights Patient will require the following post-hospital care: None Practitioner: I am a practitioner with admitting privileges, knowledge of patient current condition, hospital course, and medical plan of care. Services: Services provided to patient in accordance with Admission requirements found in Title 42 Section 412.3 of the Code of Federal Regulations <Sim Moreland - Last Filed: 01/02/21 23:38> Patient History Date of Service: 01/02/21 Primary Care Provider: None Reason for admission: Cellulitis Face, Herpes zoster History of Present Illness: This is a 55-year-old male patient that presented to the emergency room after having complaints of increased pain with rash to the left side of his face that started approximately 4 days ago. Patient stated that today he fell much worse and decided to come for further evaluation. Patient initially was febrile in the emergency room with a temperature of a 100.6. Patient was worked up in the emergency room and found to have herpes zoster with cellulitis of the left face. Patient was given antibiotics and antiviral 's in the emergency room. Other notable labs was a white cell count of 2.1, hemoglobin 12.4, hematocrit 36.9, and platelets of 30. Sodium was 134, potassium 3.8, chloride 101, bicarb 23, BUN 13, creatinine 0.65, glucose 99. Medicine was consulted at that time for admission for facial cellulitis and herpes zoster. Home medications list reviewed: Yes (Currently takes no medications....Non compliant) - Past Medical/Surgical History Has patient received pneumonia vaccine in the past: No Diabetic: No - Social History Smoking Status: Current some day smoker Counseled patient to stop smoking for: less than 10 minutes Smoking therapy provided: Yes Patient receptive to therapy: Yes Alcohol use: Yes CD- Drugs: No Caffeine use: No Place of Residence: Home <Sim Moreland - Last Filed: 01/02/21 23:38> Date of Service: 01/02/21 - Family History Mother -: Diabetes Father Notes: no known diseases <Homer Rodas - Last Filed: 02/01/21 12:40> Allergies No Known Allergies Allergy (Verified 01/09/20 02:19) Home Medications: Acyclovir Tab [Zovirax*] 400 mg PO Q8H #21 tablet 01/05/21 Minocycline HCl 100 mg PO BID #20 capsule 01/05/21 Sulfamethoxazole/Trimethoprim [Bactrim Ds Tablet] 1 each PO BID #14 tablet 01/05/21 predniSONE [Prednisone*] 20 mg PO BID #10 tab 01/05/21 Review of Systems General: Fever, Malaise Eyes: Unremarkable ENT: Ear Pain Respiratory: Unremarkable Cardiovascular: Unremarkable Gastrointestinal: Unremarkable Genitourinary: Unremarkable Musculoskeletal: Unremarkable Integumentary: Rash, Lesions, As per HPI Neurological: Unremarkable <Sim Moreland - Last Filed: 01/02/21 23:38> Physical Examination - Vital Signs Temperature: 98.6 F Blood Pressure: 148/87 Pulse: 84 Respirations: 16 Pulse Ox (%): 97 (RA) - Physical Exam General: Alert, In no apparent distress, Oriented x3 HEENT: PERRLA, Mucous membr. moist/pink, EOMI Neck: Supple, 2+ carotid pulse no bruit, JVD not distended, No Thyromegaly Respiratory: Clear to auscultation bilaterally, Normal air movement Cardiovascular: No edema, Normal pulses, Regular rate/rhythm, Normal S1 S2, No gallops, No rubs, No murmurs Capillary refill: <2 Seconds Gastrointestinal: Normal bowel sounds, Soft and benign, Non-distended, No ascites, No tenderness, No masses, No rebound, No guarding Musculoskeletal: No clubbing, No swelling, No contractures, No erythema, No tenderness, No warmth Integumentary: Other (Patient with vesicular lesions an crusting noted to the left side of the face extending from the ear to the submental region. Erythema surrounds majority of this with moderate tenderness to palpation. Some vesicular lesions noted left side of chest) Neurological: Normal gait, Normal speech, Normal strength at 5/5 x4 extr, Normal tone, Sensation intact, Cranial nerves 3-12 intact, Normal reflexes 2+, Normal affect Lymphatics: No axilla or inguinal lymphadenopathy - Studies Laboratory Data (last 24 hrs) 01/02/21 17:35: PT 16.9 H, INR 1.46 01/02/21 17:35: WBC 2.10 L, Hgb 12.4 L, Hct 36.9 L, Plt Count 30 L* 01/02/21 17:35: Sodium 134 L, Potassium 3.8, BUN 13, Creatinine 0.65, Glucose 99, Magnesium 1.8 D, Total Bilirubin 1.2 H, AST 140 H, ALT 135 H, Alkaline Phosphatase 101 <Sim Moreland - Last Filed: 01/02/21 23:38> Assessment and Plan - Problems (Diagnosis) (1) Facial cellulitis Status: Acute Plan: Patient with coexisting herpes zoster infection to the left side of the face with increased erythema extending from the left ear down through the submental region with a fever consistent with cellulitis. Patient has been put on dual antibiotic therapy vancomycin and cefepime to cover for MRSA and MSSA. Will continue to monitor for progression of cellulitis. (2) Herpes zoster Status: Acute Plan: Patient has extensive herpes zoster infection of the left side of the face extending to the mid sternal region. Patient has been placed on antiviral therapy with acyclovir 800 mg 5 times a day the next 7 days. Will continue to monitor lesions to ensure he does not have further outbreak or that it does not extend to the ophthalmic region. Qualifiers: Herpes zoster complications: with other complications Qualified Code(s): B02.8 - Zoster with other complications (3) Pancytopenia Status: Suspected Plan: Patient will have daily CBC and BMP blood redraws for pancytopenia. Patient with known chronic alcoholism with coexisting liver cancer history. Most likely pancytopenia is secondary to his chronic alcoholism. Will wait to see if blood smear shows any pathology. Otherwise will we will recheck labs to see if he has any worsening. (4) Hypertension Status: Chronic Plan: Will treat blood pressure for systolic greater than 160 or diastolic greater than 110. Qualifiers: Hypertension type: essential hypertension Qualified Code(s): I10 - Es sential (primary) hypertension Discharge Plan: Home Plan to discharge in: 48 Hours - Advance Directives Does patient have a Living Will: No Does patient have a Durable POA for Healthcare: No - Code Status/Comfort Care Code Status Assessed: Yes Code Status: Full Code Critical Care: No Time Spent Managing Pts Care (In Minutes): 70 <Jamaica Morelandshua - Last Filed: 01/02/21 23:38> - Problems (Diagnosis) (1) History of alcohol abuse Status: Acute (2) Pancytopenia Status: Acute (3) Facial cellulitis Status: Acute (4) Herpes zoster Status: Acute Qualifiers: Herpes zoster complications: with other complications Qualified Code(s): B02.8 - Zoster with other complications <Homer Rodas - Last Filed: 02/01/21 12:40> Date of Service: 01/02/21 Agree with above findings. Continue plan of care as mentioned above. Continue with antibiotics and antiviral therapy along with steroid therapy. Field Staff Manager regarding alcohol cessation <Homer Rodas - Last Filed: 02/01/21 12:40>
[2021-01-02] MEDS: NA CHLORIDE 0.9% 1,000 ML IV SCH (23:48)
[2021-01-02] MEDS: ACYCLOVIR 400 MG TABLET PO SCH (23:49)
[2021-01-03 00:13] VITALS: BMI 25.5
[2021-01-03] MEDS ORDERED: CEFEPIME 1 GM/VIAL IV SCH (05:00)
[2021-01-03 05:10] LABS: Absolute Lymphocytes (CBC) 0.4 K/uL (0.7-4.9); Basophils % 1.3 % (0-1.3); Hematocrit 35.7 % (39.6-49.0); MPV 9.4 fL (7.6-11.3); RBC Red Blood Cell Count 4.35 M/uL (4.33-5.43)
[2021-01-03 05:29] LABS: BUN Blood Urea Nitrogen 14 mg/dL (7-18); Bicarbonate 23 mmol/L (21-32); Glucose Level 95 mg/dL (74-106); Potassium 3.7 mmol/L (3.5-5.1); Sodium Level 133 mmol/L (136-145)
[2021-01-03] MEDS ORDERED: CEFEPIME/SWI 1gm 10 ML IV SCH (06:00)
[2021-01-03] MEDS ORDERED: VANCOMYCIN/NS 1 gm 1 GM/250 ML BAG IVPB SCH (06:00)
[2021-01-03] MEDS ORDERED: VANCOMYCIN 1 GM/VIAL ONE (06:25)
[2021-01-03] MEDS ORDERED: NA CHLORIDE 0.9% 250 ML ONE (06:28)
[2021-01-03 07:55] LABS: Blood Morphology Comment NOT SEEN (NOT SEEN); Platelet Estimate DECR; Platelets, Giant FEW
[2021-01-03] MEDS ORDERED: INFLUENZA VACCINE (for 3y+) 0.5 ML DOSE IMVAC ONE (09:00)
[2021-01-03] MEDS: ACYCLOVIR 400 MG TABLET PO SCH ×3 (09:25→14:00)
[2021-01-03] MEDS: FOLIC ACID 1 MG TABLET PO SCH (09:26)
--- NOTE | 2021-01-03 11:55 | EKG ---
Test Date: 2021-01-02 Test Time: 18:13:33 Youth Counselor: ROB MEASUREMENT RESULTS: Intervals: Rate: 91 PA: 144 QRSD: 94 QT: 356 QTc: 437 [place]: P: 62 PA: 144 QRS: 26 T: 24 INTERPRETIVE STATEMENTS: Normal sinus rhythm Normal ECG Compared to ECG 12/06/2020 19:51:01 Sinus tachycardia no longer present Electronically Signed On 01-03-21 11:53:27 SANDER SETTER by Kiko Deutsch
[2021-01-03] MEDS: NA CHLORIDE 0.9% 1,000 ML IV SCH (13:07)
[2021-01-03] MEDS ORDERED: SODIUM CHLORIDE 0.9% 10ML INJ IV PRN (15:45)
[2021-01-03] MEDS: ACYCLOVIR INJ 400 MG in NA CHLORIDE 0.9% 100 ML IVPB SCH (16:24)
--- NOTE | 2021-01-03 17:30 | CON ---
History Of Present Illness: The patient is a 55-year-old male, coming in with left-sided facial cell ulitis. The patient had vascular rash, which was later found to be secondary to shingles. The patie nt had also low-grade temperature of 100.6, currently feeling little better and somnolent. Denies an y chest pain, abdominal pain, constipation, or diarrhea. The patient is currently being treated with vancomycin and acyclovir. Past Medical History: Noncontributory. Medications: Acyclovir, Zosyn, and vancomycin. See MAR for other medication. Allergies: NO KNOWN DRUG ALLERGIES. Review of Systems: A 10-point review was performed. Physical Examination: General: This is a 55-year-old male, lying in bed, not in any acute cardiopulmonary distress. Vital Signs: Temperature 99.5, pulse 90, respirations 17, blood pressure 153/79. HEENT: Left facial lesions, mostly crusted. No active lesions seen at this point. Erythematous are a surrounding the whole aspect of the left face involving the ear, cheek and neck region going down t o the sternal area, most likely trigeminal nerve has been involved. Neck: Supple. Lungs: Clear to auscultation. Heart: S1, S2. Regular. Abdomen: Soft, nontender. Bowel sounds present. Extremities: No edema. Laboratory Data: WBC 1.3, hemoglobin 11.8, platelets are 28, neutrophil count is 9.4% of 1.3 which m akes it about 120 neutrophils. Chemistry shows sodium 133, potassium 3.7, chloride 103, bicarb 23, B UN 14, creatinine 0.45, glucose 95. Albumin level is 3 and liver enzymes are slightly elevated with total bilirubin of 1.2 and indirect bilirubin of 0.6. The patient's magnesium level is 1.8. Assessment And Plan: This is a 55-year-old male with history of alcohol abuse and pancytopenia with severe neutropenia of less than 500 neutrophils, currently having signs of shingles to the trigeminal nerve region involving the face, neck, and ear, most of the lesions are crusted. I agree with acycl ovir to be continued and vancomycin. Please monitor kidney function on a daily basis as the patient is on 2 nephrotoxic drugs. Continue Zosyn, can be switched if blood cultures are negative. Continue supportive care and monitor for signs of super infection. We will follow the patient closely. Thank you Dr. Rodas for consult. VADIM/SNEHA Voice ID: [id number] Report ID: [id number]
[2021-01-03] MEDS: VANCOMYCIN 1.25 GM in NA CHLORIDE 0.9% 250 ML IVPB SCH (17:37)
[2021-01-03] MEDS: METHYLPREDNISOLONE 40 MG INJ IV SCH (17:37)
[2021-01-03] MEDS ORDERED: PIPER/TAZO/NS 3.375gm 3.375 GM/100 ML BAG IVPB SCH (18:00)
[2021-01-03] MEDS: PANTOPRAZOLE 40 MG INJ IVP SCH (21:45)
[2021-01-04] MEDS: ACYCLOVIR INJ 400 MG in NA CHLORIDE 0.9% 100 ML IVPB SCH ×2 (00:25→09:25)
[2021-01-04] MEDS: METHYLPREDNISOLONE 40 MG INJ IV SCH ×4 (00:25→17:38)
[2021-01-04] MEDS: NA CHLORIDE 0.9% 1,000 ML IV SCH ×2 (01:07→12:08)
[2021-01-04 04:54] LABS: BUN Blood Urea Nitrogen 10 mg/dL (7-18); Bicarbonate 25 mmol/L (21-32); Glucose Level 130 mg/dL (74-106); Potassium 4.3 mmol/L (3.5-5.1); Sodium Level 137 mmol/L (136-145)
[2021-01-04] MEDS: VANCOMYCIN 1.25 GM in NA CHLORIDE 0.9% 250 ML IVPB SCH ×2 (06:07→18:00)
[2021-01-04 06:10] LABS: Absolute Lymphocytes (CBC) 0.5 K/uL (0.7-4.9); Basophils % 0.7 % (0-1.3); Hematocrit 39.6 % (39.6-49.0); Lymphocytes % 24.1 % (15.3-44.8); RBC Red Blood Cell Count 4.83 M/uL (4.33-5.43)
[2021-01-04] MEDS: TBO-FILGRASTIM 300 MCG/0.5 ML SYR SQ SCH (09:24)
[2021-01-04] MEDS: PANTOPRAZOLE 40 MG INJ IVP SCH ×2 (09:24→20:49)
[2021-01-04] MEDS: FOLIC ACID 1 MG TABLET PO SCH (09:24)
[2021-01-04 11:27] VITALS: O2SAT 98
--- NOTE | 2021-01-04 11:34 | P.PN ---
Subjective Date of Service: 01/04/21 Primary Care Provider: None Chief Complaint: Cellulitis Face, Herpes zoster Patient seen and examined at bedside. Denies any acute complains, raes left sided facial pain as 4/10. Review of Systems 10-point ROS is otherwise unremarkable Physical Examination - Vital Signs Temperature: 96.1 F Blood Pressure: 175/87 Pulse: 85 Respirations: 18 Pulse Ox (%): 98 - Physical Exam General: Alert, In no apparent distress, Oriented x3 HEENT: Atraumatic, Normocephalic Neck: Supple, 2+ carotid pulse no bruit Respiratory: Clear to auscultation bilaterally, Normal air movement Cardiovascular: No edema, Regular rate/rhythm, Normal S1 S2 Capillary refill: <2 Seconds Gastrointestinal: Normal bowel sounds, Hypoactive, Soft and benign Musculoskeletal: No clubbing, No swelling Integumentary: Other (Active herpes zoster on left side of face and charmaine, extending down to left sternal region. Several purple/red crusting lesions noted. Cellutlits of the area also present-erthema of surrounding tissue, warth to touch. ) Neurological: Normal gait, Normal tone Assessment And Plan - Plan Assessment: 1. Active herpes zoster to left side of face, neck, and sternal region 2. Left facial cellulites 3. Chronic alcoholism induced pancytopenia Plan: 1. Continue acyclovir to 2. Continue vancomycin. Actively monitor renal function as patient is on two nephrotoxic drugs. 3. Daily CBC to monitor pancytopenia -medical management per primary team -continue to monitor for signs of infection -continue to monitor CBC and BMP Plan of care discussed with Dr. Vivas. Thank you Dr. Rodas for consult.
[2021-01-04] MEDS: NA CHLORIDE 0.9% IVPB SCH (17:38)
[2021-01-04] MEDS: ACYCLOVIR IVPB SCH (17:38)
[2021-01-04] MEDS: VANCOMYCIN 1.5 GM in NA CHLORIDE 0.9% 250 ML IVPB SCH (18:41)
[2021-01-05] MEDS: METHYLPREDNISOLONE 40 MG INJ IV SCH ×3 (00:16→12:00)
[2021-01-05] MEDS: NA CHLORIDE 0.9% IVPB SCH ×3 (00:16→17:00)
[2021-01-05] MEDS: ACYCLOVIR IVPB SCH ×3 (00:16→17:00)
[2021-01-05] MEDS: NA CHLORIDE 0.9% 1,000 ML IV SCH ×2 (03:47)
[2021-01-05] MEDS: VANCOMYCIN 1.5 GM in NA CHLORIDE 0.9% 250 ML IVPB SCH ×2 (05:28→18:00)
[2021-01-05 05:53] LABS: Absolute Lymphocytes (CBC) 0.7 K/uL (0.7-4.9); Basophils % 0.2 % (0-1.3); Hematocrit 33.1 % (39.6-49.0); Lymphocytes % 9.4 % (15.3-44.8); MPV 10.3 fL (7.6-11.3); RBC Red Blood Cell Count 4.07 M/uL (4.33-5.43)
[2021-01-05 06:03] LABS: BUN Blood Urea Nitrogen 13 mg/dL (7-18); Bicarbonate 25 mmol/L (21-32); Glucose Level 120 mg/dL (74-106); Potassium 3.9 mmol/L (3.5-5.1); Sodium Level 140 mmol/L (136-145)
[2021-01-05] MEDS: TBO-FILGRASTIM 300 MCG/0.5 ML SYR SQ SCH (09:00)
[2021-01-05] MEDS: FOLIC ACID 1 MG TABLET PO SCH (09:00)
[2021-01-05] MEDS: PANTOPRAZOLE 40 MG INJ IVP SCH ×2 (09:00→20:40)
[2021-01-05] MEDS ORDERED: FUROSEMIDE 40 MG/4 ML VIAL IV ONE (09:20)
--- NOTE | 2021-01-05 10:59 | P.PN ---
Subjective Date of Service: 01/05/21 Primary Care Provider: None Chief Complaint: Cellulitis Face, Herpes zoster Subjective: No new changes, Doing well (facial cellulitis shows imporvement- decreased redness and swelling. Paitne states pain is well controlled and continues to decrease.) Patient seen and examined at bedside. Denies any acute complains, raes left sided facial pain as 4/10. Review of Systems 10-point ROS is otherwise unremarkable Physical Examination - Vital Signs Temperature: 97.8 F Blood Pressure: 142/71 Pulse: 71 Respirations: 16 Pulse Ox (%): 98 - Physical Exam Other Physical/Emotional Findings: General: Alert, In no apparent distress, Oriented x3. HEENT: Atraumatic, Normocephalic. Neck: Supple, 2+ carotid pulse no bruit. Respiratory: Clear to auscultation bilaterally, Normal air movement. Cardiovascular: No edema, Regular rate/rhythm, Normal S1 S2. Capillary refill: <2 Seconds. Gastrointestinal: Normal bowel sounds, Hypoactive, Soft and benign. Musculoskeletal: No clubbing, No swelling. Integumentary: Other (Active herpes zoster on left side of face and charmaine, extending down to left sternal region. Several purple/red crusting lesions noted. Cellutlits of the area also present- erthema of surrounding tissue, warth to touch. Improving-decreased redness and swelling. Neurological: Normal gait, Normal tone Assessment And Plan - Plan Assessment: 1. Active herpes zoster to left side of face, neck, and sternal region 2. Left facial cellulites 3. Chronic alcoholism induced pancytopenia Plan: 1. Continue acyclovir to 2. Continue vancomycin. Actively monitor renal function as patient is on two nephrotoxic drugs-renal fx stable at this time. 3. Daily CBC to monitor pancytopenia -medical management per primary team -continue to monitor for signs of infection -continue to monitor CBC and BMP Plan of care discussed with Dr. Vivas. Thank you Dr. Rodas for consult.
[2021-01-06] MEDS: NA CHLORIDE 0.9% IVPB SCH ×2 (00:57→09:00)
[2021-01-06] MEDS: ACYCLOVIR IVPB SCH ×2 (00:57→09:00)
[2021-01-06] MEDS: VANCOMYCIN 1.5 GM in NA CHLORIDE 0.9% 250 ML IVPB SCH (05:08)
[2021-01-06 05:30] LABS: BUN Blood Urea Nitrogen 18 mg/dL (7-18); Bicarbonate 27 mmol/L (21-32); Glucose Level 86 mg/dL (74-106); Potassium 3.9 mmol/L (3.5-5.1); Sodium Level 138 mmol/L (136-145)
[2021-01-06] MEDS: FOLIC ACID 1 MG TABLET PO SCH (09:00)
[2021-01-06] MEDS: PANTOPRAZOLE 40 MG INJ IVP SCH (09:00)
[2021-01-06 09:12] VITALS: BP 161/77; TEMP 98.2
[2021-01-06] MEDS ORDERED: INFLUENZA VACCINE (for 3y+) 0.5 ML DOSE IMVAC ONE (12:00)
--- NOTE | 2021-01-06 12:09 | P.PN ---
Subjective Date of Service: 01/03/21 Which is still some significant erythema and swelling. Clinically appears to be doing little bit better. Review of Systems 10-point ROS is otherwise unremarkable Physical Examination - Vital Signs Temperature: 98.2 F Blood Pressure: 161/77 Pulse: 63 Respirations: 16 Pulse Ox (%): 96 - Physical Exam General: Alert, In no apparent distress, Oriented x3 HEENT: Other (Patient was significant erythema of the face) Neck: Supple, JVD not distended Respiratory: Clear to auscultation bilaterally, Normal air movement Cardiovascular: Regular rate/rhythm, Normal S1 S2 Gastrointestinal: Normal bowel sounds, No tenderness Musculoskeletal: No tenderness Integumentary: Other (Patient with papules of the face and discolored lesions) Neurological: Normal speech, Normal tone, Normal affect Lymphatics: No axilla or inguinal lymphadenopathy Other Physical/Emotional Findings: General: Alert, In no apparent distress, Oriented x3. HEENT: Atraumatic, Normocephalic. Neck: Supple, 2+ carotid pulse no bruit. Respiratory: Clear to auscultation bilaterally, Normal air movement. Cardiovascular: No edema, Regular rate/rhythm, Normal S1 S2. Capillary refill: <2 Seconds. Gastrointestinal: Normal bowel sounds, Hypoactive, Soft and benign. Musculoskeletal: No clubbing, No swelling. Integumentary: Other (Active herpes zoster on left side of face and charmaine, extending down to left sternal region. Several purple/red crusting lesions noted. Cellutlits of the area also present- erthema of surrounding tissue, warth to touch. Improving-decreased redness and swelling. Neurological: Normal gait, Normal tone - Studies Medications List Reviewed: Yes Assessment & Plan - Problems (Diagnosis) (1) History of alcohol abuse Current Visit: Yes Status: Acute (2) Pancytopenia Current Visit: Yes Status: Acute (3) Facial cellulitis Current Visit: Yes Status: Acute (4) Herpes zoster Current Visit: Yes Status: Acute Qualifiers: Herpes zoster complications: with other complications Qualified Code(s): B02.8 - Zoster with other complications - Plan 1. Continue with IV antibiotic 2. Continue with local wound care 3. Wound care consultation/infectious disease consultation 4. Gentle IV hydration 5. Monitor CBC 6. Strict blood sugar monitoring 7. Pain control 8. GI and DVT prophylaxis - Advance Directives Does patient have a Living Will: No Does patient have a Durable POA for Healthcare: No - Code Status/Comfort Care Code Status: Full Code
--- NOTE | 2021-02-01 12:42 | P.PN ---
Date of Service: 01/04/21 Subjective Patient clinically doing better with no new complaints. Review of Systems 10-point ROS is otherwise unremarkable Physical Examination - Vital Signs Reviewed - Physical Exam General: Alert, In no apparent distress, Oriented x3 HEENT: Other (Patient was significant erythema of the face) Respiratory: Clear to auscultation bilaterally, Normal air movement Cardiovascular: Regular rate/rhythm, Normal S1 S2 Gastrointestinal: Normal bowel sounds, No tenderness Integumentary: Other (Patient with papules of the face and discolored lesions; patient was erythema) Assessment & Plan - Problems (Diagnosis) (1) History of alcohol abuse Current Visit: Yes Status: Acute (2) Pancytopenia Current Visit: Yes Status: Acute (3) Facial cellulitis Current Visit: Yes Status: Acute (4) Herpes zoster Current Visit: Yes Status: Acute Qualifiers: Herpes zoster complications: with other complications Qualified Code(s): B02.8 - Zoster with other complications - Plan Continue with plan of care as mentioned below 1. Continue with IV antibiotic; consider antiviral therapy as well 2. Continue with local wound care 3. Wound care consultation/infectious disease consultation appreciated 4. Gentle IV hydration 5. Monitor CBC 6. Strict blood sugar monitoring 7. Pain control 8. GI and DVT prophylaxis
--- NOTE | 2021-02-01 12:45 | P.PN ---
Date of Service: 01/05/21 Subjective Patient continues to improve with no new complaints. Clinical symptoms are getting better. Anticipate discharge over the next 24-48 hr Review of Systems 10-point ROS is otherwise unremarkable Physical Examination - Vital Signs Reviewed - Physical Exam General: Alert, In no apparent distress, Oriented x3 HEENT: Other (Patient was significant erythema of the face) Respiratory: Clear to auscultation bilaterally, Normal air movement Cardiovascular: Regular rate/rhythm, Normal S1 S2 Gastrointestinal: Normal bowel sounds, No tenderness Integumentary: Other (Patient with papules of the face and discolored lesions; patient was erythema) Assessment & Plan - Problems (Diagnosis) (1) History of alcohol abuse Current Visit: Yes Status: Acute (2) Pancytopenia Current Visit: Yes Status: Acute (3) Facial cellulitis Current Visit: Yes Status: Acute (4) Herpes zoster Current Visit: Yes Status: Acute Qualifiers: Herpes zoster complications: with other complications Qualified Code(s): B02.8 - Zoster with other complications - Plan Continue with plan of care as mentioned below 1. Continue with current treatment with antibiotics and antivirals 2. Continue with local wound care 3. Wound care consultation/infectious disease consultation appreciated 4. Gentle IV hydration 5. Monitor CBC 6. Strict blood sugar monitoring 7. Pain control 8. GI and DVT prophylaxis
--- NOTE | 2021-02-01 12:47 | P.DS ---
Discharge Date: 01/06/21 Primary Care Provider: None Disposition: ROUTINE DISCHARGE Discharge Condition: GOOD Reason for Admission: Cellulitis Face, Herpes zoster - Problems (1) History of alcohol abuse Status: Acute (2) Pancytopenia Status: Acute (3) Facial cellulitis Status: Acute (4) Herpes zoster Status: Acute Qualifiers: Herpes zoster complications: with other complications Qualified Code(s): B02.8 - Zoster with other complications Brief History of Present Illness: This is a 55-year-old male patient that presented to the emergency room after having complaints of increased pain with rash to the left side of his face that started approximately 4 days ago. Patient stated that today he fell much worse and decided to come for further evaluation. Patient initially was febrile in the emergency room with a temperature of a 100.6. Patient was worked up in the emergency room and found to have herpes zoster with cellulitis of the left face. Patient was given antibiotics and antiviral 's in the emergency room. Other notable labs was a white cell count of 2.1, hemoglobin 12.4, hematocrit 36.9, and platelets of 30. Sodium was 134, potassium 3.8, chloride 101, bicarb 23, BUN 13, creatinine 0.65, glucose 99. Medicine was consulted at that time for admission for facial cellulitis and herpes zoster. Hospital Course: Patient did well with IV antiviral/antibiotic therapy. Clinically doing well. Erythema has improved. Patient's clinical symptoms are better. Continue with outpatient therapy will with antibiotics and steroids. At this time patient is stable for discharge home. Vital Signs/Physical Exam: Temp Pulse Resp BP Pulse Ox 98.2 F 63 16 161/77 H 96 02/01/21 12:40 02/01/21 12:40 02/01/21 12:40 02/01/21 12:40 02/01/21 12:40 General: Alert, In no apparent distress, Oriented x3 Other Physical/Emotional Findings: General: Alert, In no apparent distress, Oriented x3. HEENT: Atraumatic, Normocephalic. Neck: Supple, 2+ carotid pulse no bruit. Respiratory: Clear to auscultation bilaterally, Normal air movement. Cardiovascular: No edema, Regular rate/rhythm, Normal S1 S2. Capillary refill: <2 Seconds. Gastrointestinal: Normal bowel sounds, Hypoactive, Soft and benign. Musculoskeletal: No clubbing, No swelling. Integumentary: Other (Active herpes zoster on left side of face and charmaine, extending down to left sternal region. Several purple/red crusting lesions noted. Cellutlits of the area also present- erthema of surrounding tissue, warth to touch. Improving-decreased redness and swelling. Neurological: Normal gait, Normal tone Laboratory Data at Discharge: WBC 7.70 K/uL (4.3-10.9) D 01/05/21 05:24 Hgb 11.2 g/dL (13.6-17.9) L 01/05/21 05:24 Hct 33.1 % (39.6-49.0) L D 01/05/21 05:24 Plt Count 42 K/uL (152-406) L* 01/05/21 05:24 PT 16.9 SECONDS (9.5-12.5) H 01/02/21 17:35 INR 1.46 01/02/21 17:35 Sodium 138 mmol/L (136-145) 01/06/21 04:35 Potassium 3.9 mmol/L (3.5-5.1) 01/06/21 04:35 BUN 18 mg/dL (7-18) 01/06/21 04:35 Creatinine 0.50 mg/dL (0.55-1.3) L 01/06/21 04:35 Glucose 86 mg/dL (74-106) 01/06/21 04:35 Magnesium 1.8 mg/dL (1.8-2.4) D 01/02/21 17:35 Total Bilirubin 1.2 mg/dL (0.2-1.0) H 01/02/21 17:35 AST 140 U/L (15-37) H 01/02/21 17:35 ALT 135 U/L (12-78) H 01/02/21 17:35 Alkaline Phosphatase 101 U/L (45-117) 01/02/21 17:35 Home Medications: Acyclovir Tab [Zovirax*] 400 mg PO Q8H #21 tablet 01/05/21 Minocycline HCl 100 mg PO BID #20 capsule 01/05/21 Sulfamethoxazole/Trimethoprim [Bactrim Ds Tablet] 1 each PO BID #14 tablet 01/05/21 predniSONE [Prednisone*] 20 mg PO BID #10 tab 01/05/21 New Medications: Sulfamethoxazole/Trimethoprim [Bactrim Ds Tablet] 1 each PO BID #14 tablet Minocycline HCl 100 mg PO BID #20 capsule predniSONE [Prednisone*] 20 mg PO BID #10 tab Acyclovir Tab [Zovirax*] 400 mg PO Q8H #21 tablet Physician Discharge Instructions: OK TO DC IV AND DC HOME FOLLOW-UP WITH PRIMARY CARE PROVIDER IN 1-2 WEEKS FOLLOW-UP WITH [facility] FOR LOW BLOOD COUNTS IN 1-2 WEEKS RETURN TO THE ER IF SYMPTOMS WORSEN CALL or TEXT DR. MONTIEL AT [phone] IF ANY QUESTIONS REGARDING HOSPITAL STAY. PLEASE CALL THE FLOOR AT [phone] IF ANY MEDICATION OR NURSING QUESTIONS. Diet: Regular Activity: Fall precautions Followup: [facility] [Primary Care Provider] - Jody Valdez MD [ACTIVE - CAN ADMIT] - Time spent managing pt's care (in minutes): 35
== END 2021-01-06 17:00 | disposition home or self-care (01) | DRG 603 ==
LOC: ER 16:40 → ERHOLD 19:53 → 2ND 22:23
PROVIDERS: ADMIT Hospitalist; ATTEND Hospitalist
DX: L03.211 Cellulitis of face (principal); B02.8 Zoster with other complications; D61.818 Other pancytopenia; F10.20 Alcohol dependence, uncomplicated; I10 Essential (primary) hypertension; F17.200 Nicotine dependence, unspecified, uncomplicated; B95.62 Methicillin resistant Staphylococcus aureus infection as the cause of diseases classified elsewhere; B95.61 Methicillin susceptible Staphylococcus aureus infection as the cause of diseases classified elsewhere; Z86.73 Personal history of transient ischemic attack (TIA), and cerebral infarction without residual deficits; Z79.899 Other long term (current) drug therapy; Z85.05 Personal history of malignant neoplasm of liver; Z20.822 Contact with and (suspected) exposure to COVID-19
CPT/HCPCS: 36415; 71045; 80048; 80076; 80202; 80320; 82565; 82947; 83605; 83735; 83880; 84484; 85025; 85610; 87040; 93005; 96361; 96365; 96366; 96375; 99285; C9113; J0133; J0690; J0692; J1447; J1940; J2270; J2405; J2920; J3370; J7030; J7050; U0003

== ENCOUNTER 2021-02-03 12:03 | Emergency (ER) | payer SELFPAY ==
[2021-02-03 12:57] LABS: Absolute Lymphocytes (CBC) 0.4 K/uL (0.7-4.9); Hematocrit 38.7 % (39.6-49.0); Lymphocytes % 12.1 % (15.3-44.8); MPV 9.6 fL (7.6-11.3)
[2021-02-03 13:05] LABS: Protime INR 1.17
[2021-02-03 13:11] LABS: Barbiturates NEGATIVE (NEGATIVE); Benzodiazepines NEGATIVE (NEGATIVE); Cocaine NEGATIVE (NEGATIVE); METHAMPHETAM NEGATIVE (NEGATIVE); Methadone NEGATIVE (NEGATIVE); Opiates NEGATIVE (NEGATIVE); Phencyclidine NEGATIVE (NEGATIVE); THC Cannibis NEGATIVE (NEGATIVE)
[2021-02-03 13:13] LABS: ALT/SGPT 200 U/L (12-78); AST/SGOT 255 U/L (15-37); Albumin 3.4 g/dL (3.4-5.0); Alkaline Phosphatase 193 U/L (45-117); BUN Blood Urea Nitrogen 13 mg/dL (7-18); Bicarbonate 20 mmol/L (21-32); Bilirubin Direct 0.5 mg/dL (0-0.2); Bilirubin Total 0.9 mg/dL (0.2-1.0); Glucose Level 132 mg/dL (74-106); Potassium 3.8 mmol/L (3.5-5.1); Sodium Level 141 mmol/L (136-145)
[2021-02-03] MEDS ORDERED: NA CHLORIDE 0.9% 1,000 ML ONE (13:18)
--- NOTE | 2021-02-03 14:29 | EDPHYS ---
Physician Documentation [facility] Name: Aureliano Sheikh Jr Age: 55 yrs Sex: Male : 1965 Arrival Date: 02/03/2021 Time: 12:09 Bed 23 Private MD: ED Physician Adrien Quezada HPI: 02/03 12:42 This 55 yrs old Male presents to ER via Ambulatory with complaints of Seizure. jmm 12:42 The patient presents after having a single isolated seizure. Character of seizure(s): jmm Loss of consciousness: the patient experienced loss of consciousness, Motor activity: generalized. Associated injury: The patient did not suffer any apparent associated injury. The patient has experienced similar episodes in the past, several times. This is a 55 year old male with a history of epilepsy, htn that presents to the ED with no complaints. Patient had a seizure while riding a lawnmower. Neighbor called ems. Patient does not take anti epileptics. . Historical: - Allergies: 12:15 No Known Allergies; ss - PMHx: 12:15 Hypertension; LIVER CA; Seizures; stroke; ss - PSHx: 12:15 brain sx at a young age; ss - Immunization history:: Adult Immunizations up to date. - Social history:: Smoking status: unknown. ROS: 12:42 Constitutional: Negative for fever, chills, and weight loss, Cardiovascular: Negative jmm for chest pain, palpitations, and edema, Respiratory: Negative for shortness of breath, cough, wheezing, and pleuritic chest pain. 12:42 Neuro: Positive for seizure activity. 12:42 All other systems are negative. Exam: 12:42 Constitutional: This is a well developed, well nourished patient who is awake, alert, jmm and in no acute distress. Head/Face: atraumatic. Eyes: EOMI, no conjunctival erythema appreciated ENT: Moist Mucus Membranes Neck: Trachea midline, Supple Chest/axilla: Normal chest wall appearance and motion. Cardiovascular: Regular rate and rhythm. No edema appreciated Respiratory: Normal respirations, no respiratory distress appreciated Abdomen/GI: Non distended, soft Back: Normal ROM Skin: General appearance color normal MS/ Extremity: Moves all extremities, no obvious deformities appreciated, no edema noted to the lower extremities Neuro: Awake and alert, normal gait Psych: Behavior is normal, Mood is normal, Patient is cooperative and pleasant Vital Signs: 12:36 BP 135 / 70; Pulse 118; Resp 17; Temp 98.4(TE); Pulse Ox 91% on R/A; Pain 0/10; ss 13:04 BP 151 / 86; Pulse 110; Resp 20; Pulse Ox 98% on 2 lpm NC; vg1 14:00 BP 124 / 65; Pulse 100; Resp 20; Pulse Ox 100% on R/A; vg1 [place] Coma Score: 14:46 Eye Response: spontaneous(4). Verbal Response: oriented(5). Motor Response: obeys vg1 commands(6). Total: 15. MDM: 12:25 Patient medically screened. [facility] 14:28 Data reviewed: vital signs, nurses notes. Counseling: I had a detailed discussion with van the patient and/or guardian regarding: the historical points, exam findings, and any diagnostic results supporting the discharge/admit diagnosis, lab results, the need for outpatient follow up, to return to the emergency department if symptoms worsen or persist or if there are any questions or concerns that arise at home. ED course: Patient is alert and non toxic in appearance in the ED. Labs appear consistent with previous results. Patient is advised to follow up with neuro for further evaluation. Patient is otherwise given strict return precautions. Patient understood and agrees with the plan of care. . 02/03 12:25 Order name: Acetaminophen [facility] 02/03 12:25 Order name: Basic Metabolic Panel [facility] 02/03 12:25 Order name: CBC with Diff [facility] 02/03 12:25 Order name: ETOH Level [facility] 02/03 12:25 Order name: Hepatic Function; Complete Time: 13:31 [facility] 02/03 12:25 Order name: PT-INR; Complete Time: 13:31 [facility] 02/03 12:25 Order name: Ptt, Activated; Complete Time: 13:31 [facility] 02/03 12:25 Order name: Salicylate; Complete Time: 13:31 [facility] 02/03 12:25 Order name: Urine Drug Screen; Complete Time: 13:31 [facility] 02/03 12:26 Order name: Acetaminophen Level; Complete Time: 13:31 [facility] 02/03 12:26 Order name: Basic Metabolic Panel; Complete Time: 13:31 [facility] 02/03 12:26 Order name: CBC with Automated Diff; Complete Time: 13:31 [facility] 02/03 12:26 Order name: Alcohol Serum/Plasma; Complete Time: 13:31 [facility] 02/03 12:58 Order name: Glucose, Ancillary Testing; Complete Time: 13:31 [facility] 02/03 12:25 Order name: EKG; Complete Time: 12:26 [facility] 02/03 12:25 Order name: EKG - Nurse/Tech; Complete Time: 12:45 [facility] 02/03 12:25 Order name: IV Saline Lock; Complete Time: 12:45 [facility] 02/03 12:25 Order name: Labs collected and sent; Complete Time: 12:45 [facility] 02/03 12:25 Order name: Urine Dipstick-Ancillary (obtain specimen); Complete Time: 13:04 [facility] Administered Medications: 13:04 Drug: NS 0.9% 1000 ml Route: IV; Rate: 1 bolus; Site: right antecubital; vg1 14:46 Follow up: IV Status: Completed infusion vg1 Disposition: 15:49 Co-signature as Attending Physician, Adrien Quezada MD I agree with the assessment and [id number] plan of care. Disposition: 02/03/21 14:29 Discharged to Home. Impression: Epilepsy and recurrent seizures. - Condition is Stable. - Discharge Instructions: Seizure, Adult. - Medication Reconciliation Form, Thank You Letter, Antibiotic Education, Prescription Opioid Use form. - Follow up: Kris Gonzalez MD; When: 2 - 3 days; Reason: Recheck today's complaints, Continuance of care, Re-evaluation by your physician. Signatures: Dispatcher [employer] [facility] Jerel Linares PA PA jmm Smirch, Shelby, RN RN Adrien Quezada MD MD tw4 Selin Gong RN RN vg1 Corrections: (The following items were deleted from the chart) 14:46 14:29 02/03/2021 14:29 Discharged to Home. Impression: Epilepsy and recurrent seizures. vg1 Condition is Stable. Forms are Medication Reconciliation Form, Thank You Letter, Antibiotic Education, Prescription Opioid Use. Follow up: Kris Gonzalez; When: 2 - 3 days; Reason: Recheck today's complaints, Continuance of care, Re-evaluation by your physician. van
--- NOTE | 2021-02-03 14:29 | ER ---
Nurse's Notes [facility] Name: Aureliano Sheikh Jr Age: 55 yrs Sex: Male : 1965 Arrival Date: 02/03/2021 Time: 12:09 Bed 23 Private MD: Diagnosis: Epilepsy and recurrent seizures Presentation: 02/03 12:10 Chief complaint: EMS states: Witnessed seizure that occurred while mowing grass, ss lasting 30 seconds. Coronavirus screen: Client denies travel out of the [place] in the last 14 days. Ebola Screen: Patient denies exposure to infectious person. Patient denies travel to an Ebola-affected area in the 21 days before illness onset. Initial Sepsis Screen: Does the patient meet any 2 criteria? No. Patient's initial sepsis screen is negative. Does the patient have a suspected source of infection? No. Patient's initial sepsis screen is negative. Risk Assessment: Do you want to hurt yourself or someone else? Patient reports no desire to harm self or others. Onset of symptoms was February 03, 2021. 12:10 Method Of Arrival: Ambulatory ss 12:10 Acuity: LORETTA 3 ss Historical: - Allergies: 12:15 No Known Allergies; ss - PMHx: 12:15 Hypertension; LIVER CA; Seizures; stroke; ss - PSHx: 12:15 brain sx at a young age; ss - Immunization history:: Adult Immunizations up to date. - Social history:: Smoking status: unknown. Screenin:15 Abuse screen: Denies threats or abuse. Denies injuries from another. Nutritional ss screening: No deficits noted. Tuberculosis screening: Never had TB. Fall Risk None identified. Assessment: 12:15 General: Appears in no apparent distress. comfortable, Behavior is calm, cooperative, ss Denies fever, feeling ill, fatigue, chills. Pain: Denies pain. Neuro: Level of Consciousness is awake, alert, obeys commands, Oriented to person, place, time, situation. Cardiovascular: Capillary refill < 3 seconds is brisk in bilateral fingers. Respiratory: Airway is patent Trachea midline Respiratory effort is even, unlabored, Respiratory pattern is regular, symmetrical. GI: Abdomen is non-distended. EENT: Nares are clear Oral mucosa is moist. Derm: Skin is intact, is healthy with good turgor, Skin is dry, Skin is pink, warm \T\ dry. normal. Musculoskeletal: Circulation, motion, and sensation intact. Range of motion: intact in all extremities. 12:49 Reassessment: Patient appears in no apparent distress at this time. Patient and/or vg1 family updated on plan of care and expected duration. Pain level reassessed. Patient is alert, oriented x 3, equal unlabored respirations, skin warm/dry/pink. Patient denies pain at this time. 14:17 Reassessment: Patient appears in no apparent distress at this time. Patient and/or vg1 family updated on plan of care and expected duration. Pain level reassessed. Patient is alert, oriented x 3, equal unlabored respirations, skin warm/dry/pink. Patient denies pain at this time. Patient states feeling better. Vital Signs: 12:36 BP 135 / 70; Pulse 118; Resp 17; Temp 98.4(TE); Pulse Ox 91% on R/A; Pain 0/10; ss 13:04 BP 151 / 86; Pulse 110; Resp 20; Pulse Ox 98% on 2 lpm NC; vg1 14:00 BP 124 / 65; Pulse 100; Resp 20; Pulse Ox 100% on R/A; vg1 [place] Coma Score: 14:46 Eye Response: spontaneous(4). Verbal Response: oriented(5). Motor Response: obeys vg1 commands(6). Total: 15. ED Course: 12:09 Patient arrived in ED. ss 12:11 Triage completed. ss 12:15 Arm band placed on right wrist. ss 12:15 Patient has correct armband on for positive identification. Bed in low position. Call ss light in reach. Side rails up X2. Seizure precautions initiated. oracle database manager on. Pulse ox on. NIBP on. 12:18 Jerel Linares PA is PHCP. [facility] 12:18 Adrien Quezada MD is Attending Physician. [facility] 12:35 Cass Craven RN is Primary Nurse. ss 12:43 EKG done, by ED staff, reviewed by Adrien Quezada MD. Initial lab(s) drawn, by ma, kj1 sent to lab. Inserted saline lock: 20 gauge in right antecubital area, using aseptic technique. Blood collected. 12:49 Primary Nurse role handed off by Cass Craven, RN vg1 12:49 Selin Gong, RN is Primary Nurse. vg1 14:29 Kris Gonzalez MD is Referral Physician. [facility] 14:46 No provider procedures requiring assistance completed. IV discontinued, intact, vg1 bleeding controlled, No redness/swelling at site. Pressure dressing applied. Administered Medications: 13:04 Drug: NS 0.9% 1000 ml Route: IV; Rate: 1 bolus; Site: right antecubital; vg1 14:46 Follow up: IV Status: Completed infusion vg1 Outcome: 14:29 Discharge ordered by . [facility] 14:46 Discharged to home via wheelchair. vg1 14:46 Condition: stable 14:46 Discharge instructions given to patient, Instructed on discharge instructions, follow up and referral plans. Demonstrated understanding of instructions, follow-up care. 14:46 Patient left the ED. vg1 Signatures: Jerel Linares PA PA jmm Smirch, Shelby, RN RN ss Jackson, Kandis kj1 Selin Gong RN RN vg1
[2021-02-03 15:10] VITALS: TEMP 98.4
[2021-02-03 15:13] VITALS: BP 124/65; O2SAT 100
== END 2021-02-03 14:46 | disposition home or self-care (01) ==
LOC: ER 12:03
DX: G40.802 Other epilepsy, not intractable, without status epilepticus (principal); I10 Essential (primary) hypertension; Z85.05 Personal history of malignant neoplasm of liver
CPT/HCPCS: 36415; 80048; 80076; 80307; 80320; 80329; 82947; 85025; 85610; 85730; 93005; 96360; 96361; 99284; J7030

== ENCOUNTER 2021-05-31 14:26 | Emergency (ER) | payer SELFPAY ==
[2021-05-31 15:05] LABS: Absolute Lymphocytes (CBC) 0.8 K/uL (0.7-4.9); Basophils % 1.1 % (0-1.3); Hematocrit 38.9 % (39.6-49.0); Lymphocytes % 25.7 % (15.3-44.8); MPV 9.8 fL (7.6-11.3); RBC Red Blood Cell Count 4.67 M/uL (4.33-5.43)
--- NOTE | 2021-05-31 15:12 | RAD REPORT ---
EXAM DESCRIPTION: CT - Head Brain Wo Cont - 05/31/2021 2:53 pm CLINICAL HISTORY: SEIZURE Headache, drowsiness COMPARISON: Head Brain Wo Cont dated 12/06/2020; Head Brain Wo Cont dated 07/04/2020 TECHNIQUE: All CT scans are performed using dose optimization technique as appropriate and may inclu de automated exposure control or mA/KV adjustment according to patient size. FINDINGS: No intracranial hemorrhage, hydrocephalus or extra-axial fluid collection.Areas gliosis ar e present unchanged. These appear to be sequela of previous traumatic brain injury. No midline shift is evident. The paranasal sinuses and mastoids are clear. Previous kaylin holes are seen. IMPRESSION: No acute intracranial abnormality.
[2021-05-31 15:16] LABS: BUN Blood Urea Nitrogen 9 mg/dL (7-18); Bicarbonate 19 mmol/L (21-32); Glucose Level 168 mg/dL (74-106); Potassium 3.9 mmol/L (3.5-5.1); Protime INR 1.29; Sodium Level 138 mmol/L (136-145)
[2021-05-31] MEDS ORDERED: DIAZEPAM 10 MG/2 ML INJ SYRINGE ONE ×2 (15:21→17:28)
[2021-05-31] MEDS ORDERED: NA CHLORIDE 0.9% 1,000 ML ONE (15:22)
[2021-05-31] MEDS ORDERED: MAGNESIUM SULFATE 1 gm IVPB 1 GM/100 ML BAG IV ONE (15:22)
--- NOTE | 2021-05-31 16:42 | ER ---
Nurse's Notes [facility] Name: Aureliano Sheikh Jr Age: 55 yrs Sex: Male : 1965 Arrival Date: 05/31/2021 Time: 14:34 Bed 5 Private MD: Diagnosis: Epileptic seizures related to external causes, not intractable;Alcohol dependence with withdrawal, unspecified Presentation: 05/31 14:35 Chief complaint: EMS states: Seizure witnessed by family. Coronavirus screen: Client kg denies travel out of the [place] in the last 14 days. At this time, unable to obtain information related to travel outside the [place] Client presents with at least one sign or symptom that may indicate coronavirus-19. Coronavirus screen: At this time, the client does not indicate any symptoms associated with coronavirus-19. Ebola Screen: Patient negative for fever greater than or equal to 101.5 degrees Fahrenheit, and additional compatible Ebola Virus Disease symptoms Patient denies exposure to infectious person. Patient denies travel to an Ebola-affected area in the 21 days before illness onset. Initial Sepsis Screen: Does the patient meet any 2 criteria? No. Patient's initial sepsis screen is negative. Does the patient have a suspected source of infection? No. Patient's initial sepsis screen is negative. Risk Assessment: Do you want to hurt yourself or someone else? Patient reports no desire to harm self or others. Onset of symptoms was May 31, 2021. 14:35 Method Of Arrival: EMS: [facility] kg 14:35 Acuity: LORETTA 3 kg Triage Assessment: 14:39 General: Appears in no apparent distress. Behavior is calm, cooperative, appropriate kg for age, quiet. Pain: Denies pain. EENT: No deficits noted. Neuro: Level of Consciousness is awake, alert, obeys commands, post ictal, Slow to respond. Oriented to person, place, time, situation, Appropriate for age. Cardiovascular: Heart tones S1 S2. Respiratory: Airway is patent Trachea midline Respiratory effort is even, unlabored, relaxed, Respiratory pattern is regular, Breath sounds are clear bilaterally. GI: No deficits noted. : No deficits noted. Derm: No deficits noted. Musculoskeletal: No deficits noted. Historical: - Allergies: 14:39 No Known Allergies; kg - PMHx: 14:39 Hypertension; Seizures; LIVER CA; stroke; kg - PSHx: 14:39 Unable to Obtain; kg - Immunization history:: Adult Immunizations not up to date, Client reports having NOT received the Covid vaccine. - Social history:: Smoking status: Patient reports the use of cigarette tobacco products, smokes one-half pack cigarettes per day, Patient uses alcohol, on a daily basis. - Family history:: not pertinent. - Hospitalizations: : No recent hospitalization is reported. Screenin:41 Abuse screen: Denies threats or abuse. Denies injuries from another. Nutritional kg screening: No deficits noted. Tuberculosis screening: No symptoms or risk factors identified. Fall Risk Fall in past 12 months (25 points). No secondary diagnosis (0 pts). IV access (20 points). Ambulatory Aid- None/Bed Rest/Nurse Assist (0 pts). Gait- Normal/Bed Rest/Wheelchair (0 pts) Mental Status- Oriented to own ability (0 pts). Total Ch Fall Scale indicates No Risk (0-24 pts). Assessment: 14:45 Reassessment: See triage assessment. kg 15:10 Reassessment: Spoke to sister Savanna Rey and updated her on kg patients status with permission from patient. . Vital Signs: 14:30 BP 138 / 83; Pulse 102; Resp 21; Pulse Ox 96% ; kg 14:35 BP 138 / 83; Pulse 104; Resp 20; Temp 25(O); Pulse Ox 96% ; Weight 77.11 kg; Height 5 kg ft. 4 in. (162.56 cm); Pain 0/10; 15:04 BP 143 / 77; Pulse 97; Resp 20; Pulse Ox 95% ; kg 15:15 BP 144 / 75; Pulse 101; Resp 24; Pulse Ox 97% on R/A; kg 15:30 BP 145 / 80; Pulse 91; Resp 20; Pulse Ox 96% on R/A; kg 15:45 BP 152 / 87; Pulse 94; Resp 25; Pulse Ox 99% on R/A; kg 16:00 BP 155 / 78; Pulse 85; Resp 25; Pulse Ox 99% on R/A; kg 14:35 Body Mass Index 29.18 (77.11 kg, 162.56 cm) kg ED Course: 14:34 Patient arrived in ED. kg 14:34 Dale Parikh MD is Attending Physician. rn 14:35 Jennifer Castañeda, ETIENNE is Primary Nurse. kg 14:39 Triage completed. kg 14:40 Inserted saline lock: 20 gauge in right antecubital area, using aseptic technique. kg 14:41 Arm band placed on right wrist. kg 14:41 Patient has correct armband on for positive identification. Placed in gown. Bed in low kg position. Call light in reach. Side rails up X2. Seizure precautions initiated. 14:53 CT Head Brain wo Cont In Process Unspecified. EDMS 15:08 CBC with Diff Sent. kg 15:08 Basic Metabolic Panel Sent. kg 15:08 Ptt, Activated Sent. kg 15:08 Protime (+inr) Sent. kg Administered Medications: 15:02 Drug: Valium (diazepam) 5 mg Route: IVP; Site: right antecubital; kg 16:40 Follow up: Response: No adverse reaction; Marked relief of symptoms kg 15:02 Drug: NS 0.9% 1000 ml Route: IV; Rate: 1000 ml; Site: right antecubital; kg 15:02 Drug: Magnesium Sulfate 1 grams Route: IVPB; Infused Over: 1 hrs; Site: right kg antecubital; 17:07 Drug: Valium (diazepam) 5 mg Route: IVP; Site: right antecubital; kg 18:00 Follow up: Response: No adverse reaction; Marked relief of symptoms kg Intake: 16:00 One unmeasured void kg Outcome: 16:42 Discharge ordered by . rn 18:26 Patient left the ED. kg Signatures: Dispatcher [employer] EDMT Dale Parikh MD MD rn Graham, Kristen, RN RN kg Corrections: (The following items were deleted from the chart) 14:39 14:39 PSHx: None; kg kg 15:12 15:11 Reassessment: See triage assessment. kg kg
--- NOTE | 2021-05-31 16:42 | EDPHYS ---
Physician Documentation [facility] Name: Aureliano Sheikh Jr Age: 55 yrs Sex: Male : 1965 Arrival Date: 05/31/2021 Time: 14:34 Bed 5 Private MD: ED Physician Dale Parikh HPI: 05/31 15:19 This 55 yrs old Male presents to ER via EMS with complaints of witnessed rn seizure. 15:19 The patient presents after having a single isolated seizure. Character of seizure(s): rn Loss of consciousness: it is not known if the patient experienced loss of consciousness, Motor activity: generalized, Incontinence: none, Apnea: the patient did not experience apnea, Circulation: the patient did not experience evidence of pulse disturbance, Eye movements: are unknown. Seizure onset: just prior to arrival. Context: the seizure(s) was witnessed, by family, occurred at home, occurred while the patient was at rest, Contributing factors: unknown. Associated injury: The patient did not suffer any apparent associated injury. Current symptoms: confusion, headache. The patient has experienced similar episodes in the past. The patient has not recently seen a physician. Brought in by EMS for seizure, witnessed, has had multiple seizures in past, told nurse doesn't take seizure meds, tells me he takes unknown seizure medication. No fever. + daily drinker and last drink yesterday. No changes in medication. . Historical: - Allergies: 14:39 No Known Allergies; kg - PMHx: 14:39 Hypertension; Seizures; LIVER CA; stroke; kg - PSHx: 14:39 Unable to Obtain; kg - Immunization history:: Adult Immunizations not up to date, Client reports having NOT received the Covid vaccine. - Social history:: Smoking status: Patient reports the use of cigarette tobacco products, smokes one-half pack cigarettes per day, Patient uses alcohol, on a daily basis. - Family history:: not pertinent. - Hospitalizations: : No recent hospitalization is reported. ROS: 15:19 Constitutional: Negative for fever, chills, and weight loss, Eyes: Negative for injury, rn pain, redness, and discharge, ENT: Negative for injury, pain, and discharge, Neck: Negative for injury, pain, and swelling, Cardiovascular: Negative for chest pain, palpitations, and edema, Respiratory: Negative for shortness of breath, cough, wheezing, and pleuritic chest pain, Abdomen/GI: Negative for abdominal pain, nausea, vomiting, diarrhea, and constipation, Back: Negative for injury and pain, : Negative for injury, bleeding, discharge, and swelling, MS/Extremity: Negative for injury and deformity, Skin: Negative for injury, rash, and discoloration, Neuro: + seizure and confusion Exam: 15:19 Constitutional: Awake, no acute distress. Slow to respond, seems post ictal Head/Face: rn Normocephalic, atraumatic. Eyes: Periorbital areas with no swelling, redness, or edema. ENT: dry MM Cardiovascular: Tachycardic, regular Respiratory: No increased work of breathing, no retractions or nasal flaring. Abdomen/GI: soft, non-tender, no masses Skin: Warm, dry MS/ Extremity: Pulses equal, no cyanosis. Neuro: Awake and alert, GCS 15, oriented to person, place, not time. Cranial nerves II-XII grossly intact. Motor strength 4/5 in all extremities. Sensory grossly intact. 16:38 ECG was reviewed by the Attending Physician. rn Vital Signs: 14:30 BP 138 / 83; Pulse 102; Resp 21; Pulse Ox 96% ; kg 14:35 BP 138 / 83; Pulse 104; Resp 20; Temp 25(O); Pulse Ox 96% ; Weight 77.11 kg; Height 5 kg ft. 4 in. (162.56 cm); Pain 0/10; 15:04 BP 143 / 77; Pulse 97; Resp 20; Pulse Ox 95% ; kg 15:15 BP 144 / 75; Pulse 101; Resp 24; Pulse Ox 97% on R/A; kg 15:30 BP 145 / 80; Pulse 91; Resp 20; Pulse Ox 96% on R/A; kg 15:45 BP 152 / 87; Pulse 94; Resp 25; Pulse Ox 99% on R/A; kg 16:00 BP 155 / 78; Pulse 85; Resp 25; Pulse Ox 99% on R/A; kg 14:35 Body Mass Index 29.18 (77.11 kg, 162.56 cm) kg MDM: 14:34 Patient medically screened. rn 16:28 Differential diagnosis: seizure. Data reviewed: vital signs, nurses notes, lab test rn result(s), radiologic studies, CT scan. 16:38 Counseling: I had a detailed discussion with the patient and/or guardian regarding: the rn historical points, exam findings, and any diagnostic results supporting the discharge/admit diagnosis, lab results, radiology results, the need for outpatient follow up, to return to the emergency department if symptoms worsen or persist or if there are any questions or concerns that arise at home. Response to treatment: the patient's symptoms have markedly improved after treatment, the patient's condition has returned to base line, the patient is now symptom free, and as a result, I will discharge patient. Special discussion: I discussed with the patient/guardian in detail that at this point there is no indication for admission to the hospital. It is understood, however, that if the symptoms persist or worsen the patient needs to return immediately for re-evaluation. ED course: Recommend slow taper off ETOH as likely having ETOH withdrawal seizures, back to baseline, stable vitals. Given valium and fluids here. Will dc home. Explained everything to patient and sister. . 05/31 14:36 Order name: CBC with Diff rn 05/31 14:36 Order name: Basic Metabolic Panel; Complete Time: 15:44 rn 05/31 14:36 Order name: CT Head Brain wo Cont; Complete Time: 15:44 rn 05/31 14:36 Order name: Protime (+inr); Complete Time: 15:44 rn 05/31 14:36 Order name: Ptt, Activated; Complete Time: 15:44 rn 05/31 17:12 Order name: CBC Smear Scan EDMS 05/31 14:36 Order name: IV Start; Complete Time: 15:08 rn 05/31 16:29 Order name: EKG; Complete Time: 16:29 rn 05/31 16:29 Order name: EKG - Nurse/Tech; Complete Time: 16:42 rn EC:38 Rate is 79 beats/min. Rhythm is regular. QRS Hammett is Normal. AR interval is normal. QRS rn interval is normal. QT interval is normal. No Q waves. T waves are Normal. No ST changes noted. Clinical impression: Normal ECG. Interpreted by me. Reviewed by me. Administered Medications: 15:02 Drug: Valium (diazepam) 5 mg Route: IVP; Site: right antecubital; kg 16:40 Follow up: Response: No adverse reaction; Marked relief of symptoms kg 15:02 Drug: NS 0.9% 1000 ml Route: IV; Rate: 1000 ml; Site: right antecubital; kg 15:02 Drug: Magnesium Sulfate 1 grams Route: IVPB; Infused Over: 1 hrs; Site: right kg antecubital; 17:07 Drug: Valium (diazepam) 5 mg Route: IVP; Site: right antecubital; kg 18:00 Follow up: Response: No adverse reaction; Marked relief of symptoms kg Disposition Summary: 05/31/21 16:42 Discharge Ordered Location: Home rn Problem: new rn Symptoms: have improved rn Condition: Stable rn Diagnosis - Epileptic seizures related to external causes, not intractable rn - Alcohol dependence with withdrawal, unspecified rn Followup: rn - With: Private Physician - When: As needed - Reason: Recheck today's complaints, Re-evaluation by your physician Discharge Instructions: - Discharge Summary Sheet rn - Finding Treatment for Addiction rn - Alcohol Withdrawal Syndrome rn - Alcohol Use Disorder rn - Seizure, Adult rn Forms: - Medication Reconciliation Form rn - Thank You Letter rn - Antibiotic engineering patternmaker - Prescription Opioid Use rn Signatures: Dispatcher [employer] Dale Stoner MD MD rn Graham, Kristen, RN RN kg Corrections: (The following items were deleted from the chart) 14:39 14:39 PSHx: None; kg kg
[2021-05-31 17:12] LABS: Blood Morphology Comment NOT SEEN (NOT SEEN); Platelet Estimate DECR; White Blood Cell Scan OK (OK)
[2021-05-31 19:40] VITALS: TEMP 25
[2021-05-31 19:46] VITALS: O2SAT 99
[2021-05-31 19:48] VITALS: BP 155/78
--- NOTE | 2021-06-01 07:44 | EKG ---
Test Date: 2021-05-31 Test Time: 16:36:15 Human Resources Partner: DMITRI MEASUREMENT RESULTS: Intervals: Rate: 79 NV: 144 QRSD: 94 QT: 390 QTc: 447 [place]vere: P: 71 NV: 144 QRS: 32 T: 51 INTERPRETIVE STATEMENTS: Normal sinus rhythm with sinus arrhythmia Normal ECG Compared to ECG 02/03/2021 12:35:36 Sinus tachycardia no longer present Electronically Signed On 06-01-21 07:42:39 CDT by Kiko Deutsch
== END 2021-05-31 18:26 | disposition home or self-care (01) ==
LOC: ER 14:26
DX: F10.239 Alcohol dependence with withdrawal, unspecified (principal); F17.210 Nicotine dependence, cigarettes, uncomplicated; I10 Essential (primary) hypertension; Z85.05 Personal history of malignant neoplasm of liver
CPT/HCPCS: 36415; 70450; 80048; 85025; 85610; 85730; 93005; 96374; 96375; 99284; J3360; J3475; J7030

== ENCOUNTER 2021-07-13 08:39 | Emergency (ER) | payer SELFPAY ==
[2021-07-13 09:11] LABS: Absolute Lymphocytes (CBC) 0.8 K/uL (0.7-4.9); Basophils % 1.1 % (0-1.3); Hematocrit 39.2 % (39.6-49.0); Lymphocytes % 30.5 % (15.3-44.8); RBC Red Blood Cell Count 4.59 M/uL (4.33-5.43)
[2021-07-13 09:33] LABS: BUN Blood Urea Nitrogen 13 mg/dL (7-18); Glucose Level 185 mg/dL (74-106); Potassium 3.6 mmol/L (3.5-5.1); Sodium Level 138 mmol/L (136-145)
[2021-07-13 09:37] LABS: Bicarbonate 14 mmol/L (21-32)
[2021-07-13] MEDS ORDERED: NA CHLORIDE 0.9% 2,000 ML ONE (10:28)
[2021-07-13 13:53] LABS: BUN Blood Urea Nitrogen 11 mg/dL (7-18); Bicarbonate 21 mmol/L (21-32); Glucose Level 80 mg/dL (74-106); Potassium 3.8 mmol/L (3.5-5.1); Sodium Level 140 mmol/L (136-145)
--- NOTE | 2021-07-13 13:56 | EDPHYS ---
Physician Documentation [facility] Name: Aureliano Sheikh Jr Age: 56 yrs Sex: Male : 1965 Arrival Date: 07/13/2021 Time: 08:41 Bed DX1 Private MD: ED Physician Fareed Merritt HPI: 07/13 16:48 This 56 yrs old Male presents to ER via EMS with complaints of Seizure. kb 16:48 The patient presents after having a single isolated seizure. Character of seizure(s): kb Loss of consciousness: the patient experienced loss of consciousness, Motor activity: generalized, shaking all over, Incontinence: none, Apnea: it is not know whether or not the patient experienced apnea. Seizure onset: just prior to arrival. Context: the seizure(s) was witnessed, by family, occurred at home. Seizure Hx: Original onset: since childhood,\E\. Associated injury: The patient did not suffer any apparent associated injury. Current symptoms: Currently, the patient is not experiencing any symptoms. The patient has experienced similar episodes in the past. The patient has not recently seen a physician. 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 Pt does not take any medications for seizures anymore. Historical: - Allergies: 14:06 No Known Allergies; jl7 - PMHx: 14:06 Hypertension; LIVER CA; Seizures; stroke; jl7 - Immunization history:: Client reports having NOT received the Covid vaccine. - Social history:: Smoking status: unknown. ROS: 16:48 Constitutional: Negative for fever, chills, and weight loss. kb 16:48 Neuro: Positive for seizure activity. 16:48 All other systems are negative. Exam: 16:48 Constitutional: This is a well developed, well nourished patient who is awake, alert, kb and in no acute distress. Head/Face: Normocephalic, atraumatic. Eyes: Pupils equal round and reactive to light, extra-ocular motions intact. Lids and lashes normal. Conjunctiva and sclera are non-icteric and not injected. Cornea within normal limits. Periorbital areas with no swelling, redness, or edema. ENT: Moist Mucous membranes Cardiovascular: Regular rate and rhythm with a normal S1 and S2. No gallops, murmurs, or rubs. No pulse deficits. Respiratory: Respirations even and unlabored. No increased work of breathing, no retractions or nasal flaring. Skin: Warm, dry with normal turgor. Normal color. MS/ Extremity: Pulses equal, no cyanosis. Neurovascular intact. Full, normal range of motion. Neuro: Awake and alert, GCS 15, oriented to person, place, time, and situation. Moves all extremities. Normal gait. Psych: Awake, alert, with orientation to person, place and time. Behavior, mood, and affect are within normal limits. Vital Signs: 08:48 BP 155 / 81; Pulse 97; Resp 16; Temp 98.6(O); Pulse Ox 98% on R/A; da3 13:05 BP 137 / 66; Pulse 71; ll1 13:05 Pulse Ox 98% ; jl7 MDM: 08:48 Patient medically screened. kb 13:54 Data reviewed: vital signs, nurses notes. Data interpreted: Pulse oximetry: on room air kb is 98 %. Interpretation: normal. Counseling: I had a detailed discussion with the patient and/or guardian regarding: the historical points, exam findings, and any diagnostic results supporting the discharge/admit diagnosis, lab results, the need for outpatient follow up, a family practitioner, to return to the emergency department if symptoms worsen or persist or if there are any questions or concerns that arise at home. 07/13 08:49 Order name: CBC with Diff kb 07/13 08:49 Order name: Basic Metabolic Panel; Complete Time: 09:37 kb 07/13 11:51 Order name: Basic Metabolic Panel; Complete Time: 13:54 kb 07/13 11:51 Order name: Acetone, Serum; Complete Time: 13:54 kb Administered Medications: 10:08 Drug: NS 0.9% 1000 ml Route: IV; Rate: 1000 ml; Site: left hand; kb 10:09 Drug: NS 0.9% 1000 ml Route: IV; Rate: 1000 ml; Site: left hand; kb Disposition: 14:47 Co-signature as Attending Physician, Fareed Merritt MD I agree with the assessment and kdr plan of care. Disposition Summary: 07/13/21 13:55 Discharge Ordered Location: Home kb Condition: Stable kb Diagnosis - Epileptic seizures related to external causes kb Followup: kb - With: Emergency Department - When: As needed - Reason: Worsening of condition Followup: kb - With: Private Physician - When: 2 - 3 days - Reason: Recheck today's complaints, Continuance of care, Re-evaluation by your physician Discharge Instructions: - Discharge Summary Sheet kb - Seizure, Adult, [id number] kb Forms: - Medication Reconciliation Form kb - Thank You Letter kb - Antibiotic Education kb - Prescription Opioid Use kb Signatures: Dispatcher [employer] EDMS Kalpana Briggs, GIOVANNA-C GIOVANNA-Fareed Vargas MD MD kdr Leal, Jahala, RN RN jl7 Destin Castillo, RN RN da3
--- NOTE | 2021-07-13 13:56 | ER ---
Nurse's Notes [facility] Name: Aureliano Sheikh Jr Age: 56 yrs Sex: Male : 1965 Arrival Date: 07/13/2021 Time: 08:41 Bed DX1 Private MD: Diagnosis: Epileptic seizures related to external causes Presentation: 07/13 08:46 Chief complaint: Patient states: seizure. Coronavirus screen: Client denies travel out da3 of the [place] in the last 14 days. Ebola Screen: No symptoms or risks identified at this time. 08:46 Method Of Arrival: EMS da3 08:49 Acuity: LORETTA 3 da3 13:00 Initial Sepsis Screen: Does the patient meet any 2 criteria? No. Patient's initial jl7 sepsis screen is negative. Does the patient have a suspected source of infection? No. Patient's initial sepsis screen is negative. Risk Assessment: Do you want to hurt yourself or someone else? Patient reports no desire to harm self or others. Onset of symptoms is unknown. Triage Assessment: 08:49 General: Appears in no apparent distress. Behavior is calm, cooperative. da3 Historical: - Allergies: 14:06 No Known Allergies; jl7 - PMHx: 14:06 Hypertension; LIVER CA; Seizures; stroke; jl7 - Immunization history:: Client reports having NOT received the Covid vaccine. - Social history:: Smoking status: unknown. Screenin:05 Abuse screen: Denies threats or abuse. Denies injuries from another. Nutritional jl7 screening: No deficits noted. Tuberculosis screening: No symptoms or risk factors identified. Fall Risk IV access (20 points). Total Ch Fall Scale indicates No Risk (0-24 pts). Vital Signs: 08:48 BP 155 / 81; Pulse 97; Resp 16; Temp 98.6(O); Pulse Ox 98% on R/A; da3 13:05 BP 137 / 66; Pulse 71; ll1 13:05 Pulse Ox 98% ; jl7 ED Course: 08:41 Patient arrived in ED. as 08:48 Kalpana Briggs [facility]C [facility] kb 08:48 Fareed Merritt MD is Attending Physician. kb 08:49 Triage completed. da3 08:55 Initial lab(s) drawn, by me, sent to lab. Inserted saline lock: 20 gauge in right dh3 forearm, using aseptic technique. Blood collected. 13:05 Patient has correct armband on for positive identification. Bed in low position. Call jl7 light in reach. Side rails up X 1. 14:05 Darci Neal, RN is Primary Nurse. jl7 14:07 No provider procedures requiring assistance completed. IV discontinued, intact, jl7 bleeding controlled, No redness/swelling at site. Pressure dressing applied. Administered Medications: 10:08 Drug: NS 0.9% 1000 ml Route: IV; Rate: 1000 ml; Site: left hand; kb 10:09 Drug: NS 0.9% 1000 ml Route: IV; Rate: 1000 ml; Site: left hand; kb Outcome: 13:55 Discharge ordered by . kb 14:07 Discharged to home ambulatory. jl7 14:07 Condition: stable 14:07 Discharge instructions given to patient, Instructed on discharge instructions, follow up and referral plans. Demonstrated understanding of instructions, follow-up care. 14:07 Patient left the ED. jl7 Signatures: Kalpana Briggs, ACCESS LIAISON-C ACCESS LIAISON-Kevinb [place] as Darci Neal, RN RN jl7 Yumiko Mcgrath 3 Donald Perez, RN RN ll1 Destin Castillo, RN RN da3
[2021-07-13 14:50] VITALS: TEMP 98.6; O2SAT 98
[2021-07-13 14:52] VITALS: BP 137/66
[2021-07-13 18:52] LABS: Blood Morphology Comment NOT SEEN (NOT SEEN); Platelet Estimate DECR; White Blood Cell Scan OK (OK)
== END 2021-07-13 14:07 | disposition home or self-care (01) ==
LOC: ER 08:39
DX: G40.509 Epileptic seizures related to external causes, not intractable, without status epilepticus (principal); I10 Essential (primary) hypertension; Z85.05 Personal history of malignant neoplasm of liver
CPT/HCPCS: 36415; 80048; 82010; 85025; 99284; J7030

== ENCOUNTER 2021-07-26 10:04 | Emergency (ER) | payer SELFPAY ==
[2021-07-26] MEDS ORDERED: levETIRAcetam 1,000 MG in NA CHLORIDE 0.9% 100 ML IV ONE (10:30)
[2021-07-26 10:44] LABS: Protime INR 1.38
[2021-07-26 10:46] LABS: Absolute Lymphocytes (CBC) 0.4 K/uL (0.7-4.9); Basophils % 1.3 % (0-1.3); Hematocrit 37.6 % (39.6-49.0); Lymphocytes % 16.9 % (15.3-44.8); MPV 8.7 fL (7.6-11.3); RBC Red Blood Cell Count 4.41 M/uL (4.33-5.43)
[2021-07-26] MEDS ORDERED: NA CHLORIDE 0.9% 1,000 ML ONE (10:51)
--- NOTE | 2021-07-26 11:08 | RAD REPORT ---
EXAM DESCRIPTION: CT - Head Brain Wo Cont - 07/26/2021 11:00 am CLINICAL HISTORY: SEIZURE COMPARISON: Head Brain Wo Cont dated 05/31/2021; Head Brain Wo Cont dated 12/06/2020 TECHNIQUE: All CT scans are performed using dose optimization technique as appropriate and may inclu de automated exposure control or mA/KV adjustment according to patient size. FINDINGS: No intracranial hemorrhage, hydrocephalus or extra-axial fluid collection.No areas of brai n edema or evidence of midline shift. Age advanced cerebral atrophy. Encephalomalacia in the high rig ht frontal lobe. Tristin cisterna magna. Remote left cerebellar infarct. The paranasal sinuses and mastoids are clear. The calvarium is intact. Pratima holes noted in the pariet al and left occipital calvarium. IMPRESSION: No acute intracranial abnormality.
[2021-07-26 11:11] LABS: ALT/SGPT 180 U/L (12-78); AST/SGOT 237 U/L (15-37); Albumin 3.1 g/dL (3.4-5.0); Alkaline Phosphatase 130 U/L (45-117); BUN Blood Urea Nitrogen 14 mg/dL (7-18); Bicarbonate 19 mmol/L (21-32); Bilirubin Direct 0.5 mg/dL (0-0.2); Bilirubin Total 1.1 mg/dL (0.2-1.0); Glucose Level 106 mg/dL (74-106); Lipase 124 U/L (73-393); NT PRO-BNP 114 pg/mL (<125); Potassium 4.2 mmol/L (3.5-5.1); Protein, Total 7.8 g/dL (6.4-8.2); Sodium Level 141 mmol/L (136-145); Troponin (Emerg Dept Use Only) < 0.02 ng/mL (0.0-0.045)
--- NOTE | 2021-07-26 11:19 | ER ---
Nurse's Notes [facility] Name: Aureliano Sheikh Jr Age: 56 yrs Sex: Male : 1965 Arrival Date: 07/26/2021 Time: 10:06 Bed 3 Private MD: Diagnosis: Epileptic seizures related to external causes, not intractable Presentation: 07/26 10:06 Chief complaint: EMS states: called out for pt possibly having a seizure, was found in sv someone's driveway. BP 168/82. Coronavirus screen: At this time, the client does not indicate any symptoms associated with coronavirus-19. Ebola Screen: No symptoms or risks identified at this time. Initial Sepsis Screen: Does the patient meet any 2 criteria? RR > 20 per min. HR > 90 bpm. Yes Does the patient have a suspected source of infection? No. Patient's initial sepsis screen is negative. Risk Assessment: Do you want to hurt yourself or someone else? Patient reports no desire to harm self or others. Onset of symptoms was July 26, 2021. 10:06 Method Of Arrival: EMS: [facility] 10:06 Acuity: [place] 3 sv Triage Assessment: 10:08 General: Appears in no apparent distress. comfortable, Behavior is calm, cooperative, sv appropriate for age. Pain: Denies pain. Neuro: Level of Consciousness is awake, alert, obeys commands. Respiratory: Respiratory effort is even, unlabored. Historical: - Allergies: 10:08 No Known Allergies; sv - PMHx: 10:08 Hypertension; LIVER CA; Seizures; stroke; sv - Immunization history:: Adult Immunizations. - Social history:: Smoking status: . - Family history:: not pertinent. Screenin:09 Abuse screen: Denies threats or abuse. Denies injuries from another. Nutritional sv screening: No deficits noted. Tuberculosis screening: No symptoms or risk factors identified. Fall Risk None identified. Assessment: 10:39 Reassessment: Patient appears in no apparent distress at this time. No changes from sv previously documented assessment. Patient and/or family updated on plan of care and expected duration. Pain level reassessed. Patient is alert, oriented x 3, equal unlabored respirations, skin warm/dry/pink. 12:30 Reassessment: Patient appears in no apparent distress at this time. Patient and/or sv family updated on plan of care and expected duration. Pain level reassessed. Patient is alert, oriented x 3, equal unlabored respirations, skin warm/dry/pink. Vital Signs: 10:06 BP 159 / 88; Pulse 98; Resp 22; Temp 99; Pulse Ox 99% ; sv 11:53 BP 153 / 78; Pulse 88; Resp 16; Pulse Ox 99% ; sv 12:30 BP 150 / 77; Pulse 82; Resp 16; Pulse Ox 99% ; sv [place] Coma Score: 10:08 Eye Response: spontaneous(4). Verbal Response: oriented(5). Motor Response: obeys sv commands(6). Total: 15. ED Course: 10:06 Patient arrived in ED. sv 10:06 Sima De Jesus, ETIENNE is Primary Nurse. sv 10:08 Triage completed. sv 10:08 Arm band placed on. sv 10:08 Maintain EMS IV. Dressing intact. Site clean \T\ dry. Gauge \T\ site: 20G L AC. sv 10:09 Patient has correct armband on for positive identification. Bed in low position. Call sv light in reach. Side rails up X2. Seizure precautions initiated. 10:23 Neftaly Andrews MD is Attending Physician. luke 10:30 Initial lab(s) drawn, by ED staff, sent to lab. sv 10:32 EKG done, by ED staff, reviewed by Neftaly Andrews MD. sv 10:[address] via stretcher. sv 11:00 CT Head Brain wo Cont In Process Unspecified. EDMS 11:19 Kris Gonzalez MD is Referral Physician. luke 11:19 Swathi Suazo MD is Referral Physician. luke 11:35 XRAY Chest (1 view) In Process Unspecified. EDMS 12:43 No provider procedures requiring assistance completed. IV discontinued, intact, hb bleeding controlled, No redness/swelling at site. Administered Medications: 10:39 Drug: NS 0.9% 500 ml Route: IV; Rate: bolus; Site: left antecubital; sv 12:01 Follow up: Response: No adverse reaction; IV Status: Completed infusion; IV Intake: sv 500ml 11:00 Drug: Thiamine 100 mg Route: IV; Rate: bolus; Site: left antecubital; hb 11:00 Follow up: Response: No adverse reaction; IV Status: Completed infusion sv 11:00 Drug: foLIC Acid 1 mg Route: IVPB; Site: left antecubital; hb 11:00 Follow up: Response: No adverse reaction; IV Status: Completed infusion sv 11:32 Drug: Keppra (levETIRAcetam) 1000 mg Route: IV; Rate: per protocol; Site: left sv antecubital; 11:47 Follow up: Response: No adverse reaction; IV Status: Completed infusion; IV Intake: sv 100ml 14:03 Not Given (Physician Discretion): NS 0.9% 1000 ml IV at 125 ml/hr continuous sv Intake: 11:47 IV: 100ml; Total: 100ml. sv 12:01 IV: 500ml; Total: 600ml. sv Outcome: 11:19 Discharge ordered by . luke 12:43 Discharged to home ambulatory. hb 12:43 Condition: stable 12:43 Discharge instructions given to patient, Instructed on discharge instructions, follow up and referral plans. medication usage, Demonstrated understanding of instructions, follow-up care, medications, Prescriptions given X 2. 12:45 Patient left the ED. hb Signatures: Dispatcher [employer] Sima Bridges, RN RN Neftaly Luke MD MD cha Baxter, Heather, RN RN hb
--- NOTE | 2021-07-26 11:20 | EDPHYS ---
Physician Documentation [facility] Name: Aureliano Sheikh Jr Age: 56 yrs Sex: Male : 1965 Arrival Date: 07/26/2021 Time: 10:06 Bed 3 Private MD: SOY Physician Neftaly Andrews HPI: 07/26 10:32 This 56 yrs old Male presents to ER via EMS with complaints of Seizure. luke 10:32 The patient presents after having a single isolated seizure, that lasted an unknown luke period of time. Character of seizure(s): Loss of consciousness: the patient experienced loss of consciousness, Motor activity: generalized, Incontinence: none, Apnea: the patient did not experience apnea, Circulation: the patient apparently experienced a disturbance in pulse. Seizure onset: just prior to arrival. Context: the seizure(s) was witnessed, by family. Seizure Hx: Last seizure: The patient's last seizure was approximately 1 month(s) ago. Associated injury: The patient did not suffer any apparent associated injury. Current symptoms: confusion. The patient has not experienced similar symptoms in the past. Historical: - Allergies: 10:08 No Known Allergies; sv - PMHx: 10:08 Hypertension; LIVER CA; Seizures; stroke; sv - Immunization history:: Adult Immunizations. - Social history:: Smoking status: . - Family history:: not pertinent. ROS: 10:32 Constitutional: Negative for fever, chills, and weight loss, Eyes: Negative for injury, luke pain, redness, and discharge, ENT: Negative for injury, pain, and discharge, Neck: Negative for injury, pain, and swelling, Cardiovascular: Negative for chest pain, palpitations, and edema, Respiratory: Negative for shortness of breath, cough, wheezing, and pleuritic chest pain, Abdomen/GI: Negative for abdominal pain, nausea, vomiting, diarrhea, and constipation, Back: Negative for injury and pain, : Negative for injury, bleeding, discharge, and swelling, MS/Extremity: Negative for injury and deformity, Skin: Negative for injury, rash, and discoloration, Psych: Negative for depression, anxiety, suicide ideation, homicidal ideation, and hallucinations, Allergy/Immunology: Negative for hives, rash, and allergies, Endocrine: Negative for neck swelling, polydipsia, polyuria, polyphagia, and marked weight changes, Hematologic/Lymphatic: Negative for swollen nodes, abnormal bleeding, and unusual bruising. 10:32 Skin: Positive for 10:32 Neuro: Positive for seizure activity. Exam: 10:32 Constitutional: This is a well developed, well nourished patient who is awake, alert, luke and in no acute distress. Head/Face: Normocephalic, atraumatic. Eyes: Pupils equal round and reactive to light, extra-ocular motions intact. Lids and lashes normal. Conjunctiva and sclera are non-icteric and not injected. Cornea within normal limits. Periorbital areas with no swelling, redness, or edema. ENT: Nares patent. No nasal discharge, no septal abnormalities noted. Tympanic membranes are normal and external auditory canals are clear. Oropharynx with no redness, swelling, or masses, exudates, or evidence of obstruction, uvula midline. Mucous membranes moist. Neck: Trachea midline, no thyromegaly or masses palpated, and no cervical lymphadenopathy. Supple, full range of motion without nuchal rigidity, or vertebral point tenderness. No Meningismus. Chest/axilla: Normal chest wall appearance and motion. Nontender with no deformity. No lesions are appreciated. Cardiovascular: Regular rate and rhythm with a normal S1 and S2. No gallops, murmurs, or rubs. Normal PMI, no JVD. No pulse deficits. Respiratory: Lungs have equal breath sounds bilaterally, clear to auscultation and percussion. No rales, rhonchi or wheezes noted. No increased work of breathing, no retractions or nasal flaring. Abdomen/GI: Soft, non-tender, with normal bowel sounds. No distension or tympany. No guarding or rebound. No evidence of tenderness throughout. Back: No spinal tenderness. No costovertebral tenderness. Full range of motion. Male : Normal genitalia with no discharge or lesions. Skin: Warm, dry with normal turgor. Normal color with no rashes, no lesions, and no evidence of cellulitis. MS/ Extremity: Pulses equal, no cyanosis. Neurovascular intact. Full, normal range of motion. Neuro: Awake and alert, GCS 15, oriented to person, place, time, and situation. Cranial nerves II-XII grossly intact. Motor strength 5/5 in all extremities. Sensory grossly intact. Cerebellar exam normal. Normal gait. Psych: Awake, alert, with orientation to person, place and time. Behavior, mood, and affect are within normal limits. 10:40 ECG was reviewed by the Attending Physician. [facility] Vital Signs: 10:06 BP 159 / 88; Pulse 98; Resp 22; Temp 99; Pulse Ox 99% ; sv 11:53 BP 153 / 78; Pulse 88; Resp 16; Pulse Ox 99% ; sv 12:30 BP 150 / 77; Pulse 82; Resp 16; Pulse Ox 99% ; sv [place] Coma Score: 10:08 Eye Response: spontaneous(4). Verbal Response: oriented(5). Motor Response: obeys sv commands(6). Total: 15. MDM: 10:23 Patient medically screened. [facility] 10:41 Differential diagnosis: cerebral vascular accident, drug overdose, cardiac arrhythmia, luke seizure. Data reviewed: vital signs, nurses notes, lab test result(s), EKG, radiologic studies, CT scan, plain films. Data interpreted: monitor tech: rate is 98 beats/min, rhythm is regular, Pulse oximetry: on room air is 99 %. Test interpretation: by ED physician or midlevel provider: ECG, plain radiologic studies. Counseling: I had a detailed discussion with the patient and/or guardian regarding: the historical points, exam findings, and any diagnostic results supporting the discharge/admit diagnosis, lab results, radiology results, the need for outpatient follow up, for definitive care, a family practitioner, a neurologist. 07/26 10:25 Order name: Basic Metabolic Panel; Complete Time: 11:18 [facility] 07/26 10:25 Order name: CBC with Diff [facility] 07/26 10:25 Order name: LFT's; Complete Time: 11:18 [facility] 07/26 10:25 Order name: Magnesium; Complete Time: 11:18 [facility] 07/26 10:25 Order name: NT PRO-BNP; Complete Time: 11:18 [facility] 07/26 10:25 Order name: PT-INR; Complete Time: 11:18 [facility] 07/26 10:25 Order name: Troponin (emerg Dept Use Only); Complete Time: 11:18 [facility] 07/26 10:25 Order name: Lipase; Complete Time: 11:18 [facility] 07/26 10:31 Order name: Acetaminophen; Complete Time: 11:18 [facility] 07/26 10:31 Order name: ETOH Level; Complete Time: 11:18 [facility] 07/26 10:31 Order name: Ptt, Activated; Complete Time: 11:18 [facility] 07/26 10:31 Order name: Salicylate [facility] 07/26 12:05 Order name: Manual Differential EDMS 07/26 10:25 Order name: XRAY Chest (1 view) [facility] 07/26 10:25 Order name: EKG; Complete Time: : [facility] 07/26 10:25 Order name: Cardiac monitoring; Complete Time: [facility] 07/26 10:25 Order name: EKG - Nurse/Tech; Complete Time: [facility] 07/26 10:25 Order name: IV Saline Lock; Complete Time: : [facility] 07/26 10:25 Order name: Labs collected and sent; Complete Time: [facility] 07/26 10:25 Order name: O2 Per Protocol; Complete Time: [facility] 07/26 10:25 Order name: O2 Sat Monitoring; Complete Time: : [facility] 07/26 10:25 Order name: Seizure Precautions; Complete Time: 10: [facility] 07/26 10:25 Order name: CT Head Brain wo Cont; Complete Time: 11:18 [facility] EC:40 Rate is 89 beats/min. Rhythm is regular. QRS [place] is Normal. DC interval is normal. QRS luke interval is normal. QT interval is normal. No Q waves. T waves are Normal. No ST changes noted. Clinical impression: Normal ECG and No evidence of ischemia. Interpreted by me. Reviewed by me. Administered Medications: 10:39 Drug: NS 0.9% 500 ml Route: IV; Rate: bolus; Site: left antecubital; sv 12:01 Follow up: Response: No adverse reaction; IV Status: Completed infusion; IV Intake: sv 500ml 11:00 Drug: Thiamine 100 mg Route: IV; Rate: bolus; Site: left antecubital; hb 11:00 Follow up: Response: No adverse reaction; IV Status: Completed infusion sv 11:00 Drug: foLIC Acid 1 mg Route: IVPB; Site: left antecubital; hb 11:00 Follow up: Response: No adverse reaction; IV Status: Completed infusion sv 11:32 Drug: Keppra (levETIRAcetam) 1000 mg Route: IV; Rate: per protocol; Site: left sv antecubital; 11:47 Follow up: Response: No adverse reaction; IV Status: Completed infusion; IV Intake: sv 100ml 14:03 Not Given (Physician Discretion): NS 0.9% 1000 ml IV at 125 ml/hr continuous sv Disposition Summary: 07/26/21 11:19 Discharge Ordered Location: Home luke Problem: new luke Symptoms: have improved luke Condition: Stable luke Diagnosis - Epileptic seizures related to external causes, not intractable luke Followup: luke - With: Private Physician - When: 2 - 3 days - Reason: Recheck today's complaints, Continuance of care, Re-evaluation by your physician Followup: luke - With: - When: 2 - 3 days - Reason: Recheck today's complaints, Continuance of care, Re-evaluation by your physician Followup: luke - With: - When: 2 - 3 days - Reason: Recheck today's complaints, Continuance of care, Re-evaluation by your physician Discharge Instructions: - Discharge Summary Sheet luke - Seizure, Adult luke - Seizure, Adult, [id number] [facility] Forms: - Medication Reconciliation Form luke - Thank You Letter luke - Antibiotic Education luke - Prescription Opioid Use [facility] Prescriptions: - Keppra 500 mg Oral Tablet - take 1 tablet by ORAL route every 12 hours; 20 tablet; Refills: 0, Product luke Selection Permitted - Folic Acid 1 mg Oral Tablet - take 1 tablet by ORAL route once daily; 30 tablet; Refills: 0, Product luke Selection Permitted Signatures: Dispatcher [employer] Sima Bridges RN RN sv Anderson, Corey, MD MD cha Baxter, Heather, RN RN Corrections: (The following items were deleted from the chart) 10:39 10:31 Suicide Screening ([place]) ordered. luke ferrell
--- NOTE | 2021-07-26 11:47 | RAD REPORT ---
EXAM DESCRIPTION: RAD - Chest Single View - 07/26/2021 11:34 am CLINICAL HISTORY: COUGH COMPARISON: Chest Single View dated 01/02/2021; Chest Single View dated 12/06/2020; Chest Single View d ated 07/04/2020; Chest Single View dated 01/11/2020 FINDINGS: Lines: None. Lungs: No evidence of edema or pneumonia. Pleural: No significant pleural effusions or pneumothorax. Cardiac: The heart size is within normal limits. Bones: No acute fractures. Other: IMPRESSION: No acute cardiopulmonary disease.
[2021-07-26 12:05] LABS: Blood Morphology Comment NOT SEEN (NOT SEEN); Platelet Estimate DECR
[2021-07-26 12:50] VITALS: TEMP 99; O2SAT 99
[2021-07-26 12:51] VITALS: BP 153/78
== END 2021-07-26 12:45 | disposition home or self-care (01) ==
LOC: ER 10:04
DX: G40.509 Epileptic seizures related to external causes, not intractable, without status epilepticus (principal); I10 Essential (primary) hypertension; Z85.05 Personal history of malignant neoplasm of liver
CPT/HCPCS: 36415; 70450; 71045; 80048; 80076; 80320; 80329; 83690; 83735; 83880; 84484; 85025; 85610; 85730; 93005; 96361; 96374; 96375; 99284; J1953; J7030

== ENCOUNTER 2021-10-17 09:32 | Emergency (ER) | payer SELFPAY ==
[2021-10-17] MEDS ORDERED: SODIUM CHL 0.9% 1000 ML BAG IV ONE (09:33)
[2021-10-17] MEDS ORDERED: DOPAMINE 400 MG/250ML D5W PREMIX IV ONE (09:33)
[2021-10-17] MEDS ORDERED: D50W 25 GM/50 ML SYRINGE IV ONE (09:33)
[2021-10-17] MEDS ORDERED: Caclcium Chloride 10% INJ SYR IV ONE (09:33)
[2021-10-17] MEDS ORDERED: EPINEPHrine 1 MG/10 ML SYR IV ONE (09:33)
--- NOTE | 2021-10-17 09:53 | EDPHYS ---
Physician Documentation [facility] Name: Aureliano Sheikh Jr Age: 56 yrs Sex: Male : 1965 Arrival Date: 10/17/2021 Time: 09:41 Bed 3 Private MD: ED Physician Dale Parikh HPI: 10/17 09:46 This 56 yrs old Male presents to ER via Unassigned with complaints of CPR, rn found down. 09:46 Preceding the arrest, the patient was found down by family. The arrest occurred at rn home. Pre-hospital course: The arrest was not witnessed by others. Bystanders at the scene did not perform CPR. EMS care prior to arrival: initiation of ACLS, oxygen, ACLS has been in progress for 15 minutes. It is unknown whether or not the patient has had similar symptoms in the past. It is unknown whether or not the patient has recently seen a physician. Patient was found down by family member in garage. Unknown details. EMS aware of patient and has known seizure disorder. No IV access or intubation prior to arrival. Patient now 15 minutes with EMS and ACLS care. Unknown downtime. EMS states upon arrival was already becoming cyanotic. No glucose check.. Historical: - Allergies: 10:52 No Known Allergies; tw2 - PMHx: 10:52 Hypertension; LIVER CA; Seizures; stroke; tw2 - Unable to obtain history due to: unresponsive. ROS: 09:46 Unable to obtain ROS due to comatose state. rn Exam: :46 Constitutional: GCS 3, compressions being performed Head/Face: Normocephalic, rn atraumatic. Eyes: Pupils 4 mm nonreactive ENT: No oral trauma noted Neck: Trachea midline, no masses palpated Cardiovascular: No spontaneous cardiac activity, positive palpable pulses with compressions Respiratory: No spontaneous breathing, positive crackles bilaterally with bagging Abdomen/GI: Soft, mild abdominal distention and tympanic Skin: Dry, no cyanosis MS/ Extremity: No cyanosis, palpable peripheral pulses with compressions Neuro: GCS 3 Procedures: 09:46 CPR: See CPR flow sheet. Initial patient assessment: unresponsive, no respiratory rn effort, Ambu ventilation, pulses present w/ compressions, The presenting cardiac rhythm is asystole. respirations assisted with BVM, ventilations per thumper, Compressions: began prior to arrival. Meds given: See Meds list. despite ED evaluation and treatment, the patient . CPR was stopped at 09:44. Intubation: Ventilated with 100% NRB prior to procedure. O2 saturation prior to procedure was 70 %. Intubated orally using # 4 Dick blade with 7.5 mm ETT. was successful on first attempt. Ventilated with Ambu bag. Tube secured with ETT berg at right side of mouth measured 22 cm at teeth. Placement verified by CO2 detector with (+) color change, auscultating bilateral breath sounds, O2 saturation after procedure was 94 %. Patient tolerated well. MDM: 09:45 Patient medically screened. rn 09:46 Differential diagnosis: arrythmia, cardiac arrest, respiratory arrest, traumatic rn injury, overdose, renal failure. Data reviewed: vital signs, nurses notes, old medical records. Response to treatment: There is no appreciated change of the patient's symptoms at this time. 12:30 ED course: Notified later that patient's family was upset that they did not get to see rn body prior to being taken. I had told family that they could see patient and notified nursing to take patient back, but seems prior to doing so, police was under impression family had already been back and allowed body to be taken. Apologized to family. . Administered Medications: 09:30 Drug: NS 0.9% 1000 ml Route: IV; Rate: 1 bolus; Site: left antecubital; tw2 09:32 Drug: EPINEPHrine 0.1mg/mL 1:10,000 1 mg {Note: by RN. Faith} Route: IVP; Site: left tw2 antecubital; 09:32 Drug: Sodium Bicarbonate 1 amp {Note: by FaithRNAndrew} Route: IVP; Site: left antecubital; tw2 09:33 Drug: D50W 50 ml {Note: by RN. Faith} Route: IVP; Site: left antecubital; tw2 09:35 Drug: EPINEPHrine 0.1mg/mL 1:10,000 1 mg {Note: by RN. Faith} Route: IVP; Site: left tw2 antecubital; 09:39 Drug: EPINEPHrine 0.1mg/mL 1:10,000 1 mg {Note: by Brittani,RN.} Route: IVP; Site: left tw2 antecubital; 09:40 Drug: Sodium Bicarbonate 1 amp {Note: by Faith,RN.} Route: IVP; Site: left antecubital; tw2 09:43 Drug: EPINEPHrine 0.1mg/mL 1:10,000 1 mg {Note: by Faith,ETIENNE.} Route: IVP; Site: left tw2 antecubital; Point of Care Testing: Blood Glucose: 09:38 Blood Glucose: 58 mg/dL; tw2 09:44 Blood Glucose: 270 mg/dL; tw2 Ranges: Critical Glucose Levels:Adult <50 mg/dl or >400 mg/dl <40 mg/dl or >180 mg/dl Disposition: 09:46 . rn Disposition Summary: 10/17/21 09:53 Patient Location: Home Health Occupational Therapist rn Pronouncing Physician: Dale Parikh rn Time of : 09:44 10/17/2021 rn Diagnosis - Cardiac arrest, cause unspecified civil litigation attorney Instructions: - Discharge Summary Sheet tw2 Forms: - SBAR form tw2 Signatures: Dale Parikh MD MD rn Wise, Tara, RN RN tw2
--- NOTE | 2021-10-17 11:50 | ER ---
Nurse's Notes [facility] Name: Aureliano Sheikh Jr Age: 56 yrs Sex: Male : 1965 Arrival Date: 10/17/2021 Time: 09:41 Bed 3 Private MD: Diagnosis: Cardiac arrest, cause unspecified Presentation: 10/17 09:28 Chief complaint: EMS states: CPR in progress. found in garage. unknown downtime. no tw2 witness started CPR. hx: seizures. 09:28 Method Of Arrival: EMS: [facility] tw2 09:28 Onset of symptoms was October 17, 2021. tw2 09: Acuity: LORETTA 1 tw2 09:28 Care prior to arrival: Assisted ventilation, CPR manually via thumper performed by EMS tw2 EMS reports no meds given. no shocks given. no glucose check. 1 failed IO attempt. 09:55 Coronavirus screen: At this time, the client does not indicate any symptoms associated tw2 with coronavirus-19. Ebola Screen: Patient denies travel to an Ebola-affected area in the 21 days before illness onset. Triage Assessment: 09:57 General: Appears. tw2 Historical: - Allergies: 10:52 No Known Allergies; tw2 - PMHx: 10:52 Hypertension; LIVER CA; Seizures; stroke; tw2 - Unable to obtain history due to: unresponsive. Assessment: 09:29 CPR assessment: unresponsive, pupils fixed \T\ dilated, Ambu ventilation, cyanotic, tw2 pulses absent w/ compressions, automatic CPR compression device attached to pt. Cardiac rhythm is asystole. 09:34 Reassessment: Pulse check - manual thumper paused. noted asystole with no palpable tw2 pulse by Dr. Parikh. CPR compressions resumed by manual thumper. 09:37 Reassessment: Pulse check - manual thumper paused. noted asystole with no palpable tw2 pulse by Dr. Parikh. CPR compressions resumed by manual thumper. 09:41 Reassessment: Pulse check - manual thumper paused. noted no cardiac activity by US per tw2 Dr. Parikh. No palpable pulse. CPR compressions resumed by manual thumper. 09:44 Reassessment: Pulse check - manual thumper paused. noted asystole on classroom monitor. tw2 no palpable pulse by Dr. Parikh. BGL fingerstick of 270 mg/dL. ED Course: 09:30 Intubation: Ventilated with 100% bag valve mask (BVM) prior to procedure. 7.5 Fr. ETT tw2 placed orally. Performed by Dale Parikh MD Successful on first attempt. Placement verified by CO2 detector w/ + color change, auscultating bilateral breath sounds, 23 at the lip. blood noted in ET tube. Ventilated with Ambu bag. by LauraRT. Inserted saline lock: 20 gauge in left antecubital area, using aseptic technique. ,using aseptic technique. ETIENNE Cuevas Blood collected. Inserted saline lock: 20 gauge in right antecubital area, using aseptic technique. ,using aseptic technique. by SN Brittani. 09:40 OG 14F by ETIENNE Cuevas verified by auscultation and return of gastric content to low tw2 intermittent suction. 09:41 Patient arrived in ED. em1 09:41 Arm band placed on. tw2 09:45 Dale Parikh MD is Attending Physician. rn 09:53 Dale Parikh MD is Pronouncing Provider. rn 09:54 Guerda Jerome RN is Primary Nurse. tw2 09:57 Triage completed. tw2 Administered Medications: 09:30 Drug: NS 0.9% 1000 ml Route: IV; Rate: 1 bolus; Site: left antecubital; tw2 09:32 Drug: EPINEPHrine 0.1mg/mL 1:10,000 1 mg {Note: by RN. Faith} Route: IVP; Site: left tw2 antecubital; 09:32 Drug: Sodium Bicarbonate 1 amp {Note: by RN. Faith} Route: IVP; Site: left antecubital; tw2 09:33 Drug: D50W 50 ml {Note: by RN. Faith} Route: IVP; Site: left antecubital; tw2 09:35 Drug: EPINEPHrine 0.1mg/mL 1:10,000 1 mg {Note: by RN. Faith} Route: IVP; Site: left tw2 antecubital; 09:39 Drug: EPINEPHrine 0.1mg/mL 1:10,000 1 mg {Note: by RN. Brittani} Route: IVP; Site: left tw2 antecubital; 09:40 Drug: Sodium Bicarbonate 1 amp {Note: by FaithRN.} Route: IVP; Site: left antecubital; tw2 09:43 Drug: EPINEPHrine 0.1mg/mL 1:10,000 1 mg {Note: by ETIENNE Cuevas.} Route: IVP; Site: left tw2 antecubital; Point of Care Testing: Blood Glucose: 09:38 Blood Glucose: 58 mg/dL; tw2 09:44 Blood Glucose: 270 mg/dL; tw2 Ranges: Outcome: 09:44 Outcome Patient tw2 09:44 Patient : Time of 09:44 Pronounced by Dale Parikh MD 09:44 Condition: 11:49 Patient left the ED. tw Signatures: Dale Parikh MD MD rn Martinez, [facility] Guerda Jerome RN RN tw2 Corrections: (The following items were deleted from the chart) [id number] 09:55 Chief complaint: EMS states: CPR in progress. found in garage. unknown downtime. tw2 no witness started CPR. hx: seizures 55 09:55 Method Of Arrival: EMS: [facility] tw2 tw2
== END 2021-10-17 11:49 ==
LOC: ER 09:32
PROC: 0BH17EZ Insertion of Endotracheal Airway into Trachea, Via Natural or Artificial Opening (ICD-10-PCS; principal; 2021-10-17)
PROC: 5A1935Z Respiratory Ventilation, Less than 24 Consecutive Hours (ICD-10-PCS; 2021-10-17)
DX: I46.9 Cardiac arrest, cause unspecified (principal); I10 Essential (primary) hypertension; Z85.05 Personal history of malignant neoplasm of liver; Z86.73 Personal history of transient ischemic attack (TIA), and cerebral infarction without residual deficits
CPT/HCPCS: 31500; 82947; 92950; 96374; 96375; 99285; J0171; J1265; J7030